=== PATIENT | male | born 1955 | race Caucasian/White ===

== ENCOUNTER 2017-10-25 18:35 | Emergency (ER) | payer OTHER ==
[2017-10-25 20:25] LABS: Absolute Monocytes 0.7 K/uL (0.1-1.3); Absolute Neutrophil 10.1 K/uL (1.8-8.0); Basophils % 0.6 % (0-1.3); Eosinophils % 1.7 % (0-4.4); Hematocrit 31.9 % (39.6-49.0); Lymphocytes % 14.9 % (15.3-44.8); MCV 90.7 fL (80-100); MPV 8.3 fL (7.6-11.3); Monocytes % 5.5 % (3.3-12.3); RBC Red Blood Cell Count 3.52 M/uL (4.33-5.43)
[2017-10-25] MEDS ORDERED: NA CHLORIDE 0.9% 1,000 ML ONE (20:32)
[2017-10-25] MEDS ORDERED: NA CHLORIDE 0.9% 500 ML ONE (20:32)
[2017-10-25 20:41] LABS: Potassium 4.5 mEq/L (3.6-5.0)
[2017-10-25 20:44] LABS: Albumin 3.7 g/dL (3.2-5.5); Bilirubin Total 0.3 mg/dL (0.3-1.2); Protein, Total 7.1 g/dL (6.0-8.3)
--- NOTE | 2017-10-25 22:24 | ER ---
Nurse's Notes [facility] Name: Mango Grey Age: 62 yrs Sex: Male : 1955 Arrival Date: 10/25/2017 Time: 18:36 Bed 17 Private MD: Gely Godfrey F Diagnosis: Hypercalcemia;Unspecified kidney failure;Elevated white blood cell count;Anemia, unspecified;Type 2 diabetes mellitus Presentation: 10/25 19:03 Presenting complaint: Patient states: Sent by wound healing for high calcium level. aj Transition of care: patient was not received from another setting of care. Onset of symptoms was October 25, 2017. Initial Sepsis Screen: Does the patient meet any 2 criteria? No. Patient's initial sepsis screen is negative. Does the patient have a suspected source of infection? No. Patient's initial sepsis screen is negative. Care prior to arrival: None. 19:03 Method Of Arrival: Wheelchair aj 19:03 Acuity: KATHIE 3 aj Triage Assessment: 19:05 General: Appears in no apparent distress. comfortable, Behavior is calm, cooperative, aj appropriate for age. Pain: Denies pain. Neuro: Level of Consciousness is awake, alert, obeys commands, Oriented to person, place, time, situation, Appropriate for age. Cardiovascular: No deficits noted. Respiratory: Airway is patent Respiratory effort is even, unlabored, Respiratory pattern is regular, symmetrical. Derm: Skin is intact, is healthy with good turgor, Skin is pink, warm \T\ dry. normal. Historical: - Allergies: 19:05 No Known Allergies; aj - Home Meds: 19:05 amlodipine 5 mg tab 1 tab once daily [Active]; atorvastatin 10 mg Oral tab 1 tab once aj daily [Active]; clonidine HCl 0.2 mg Oral tab 1 tab 2 times per day [Active]; lisinopril 20 mg Oral tab 1 tab once daily [Active]; metformin 500 mg Oral tab 1 tab 2 times per day [Active]; metoprolol tartrate 100 mg Oral tab 1 tab 2 times per day [Active]; spironolactone 25 mg Oral tab 1 tab once daily [Active]; Cipro 500 mg Oral tab 1 tab every 12 hours [Active]; - PMHx: 19:05 Diabetes - NIDDM; Hypertension; T10 paraplegic; aj - Immunization history:: Adult Immunizations up to date. - Social history:: Smoking status: Patient/guardian denies using tobacco. Screenin:12 Abuse screen: Denies threats or abuse. Denies injuries from another. Nutritional bp screening: No deficits noted. Tuberculosis screening: No symptoms or risk factors identified. Fall Risk None identified. Assessment: 19:09 General: Appears in no apparent distress. comfortable, Behavior is calm, cooperative, bp appropriate for age. Pain: Denies pain. Neuro: Level of Consciousness is awake, alert, obeys commands, Oriented to person, place, time, situation, Appropriate for age. Cardiovascular: No deficits noted. Respiratory: Airway is patent Respiratory effort is even, unlabored, Respiratory pattern is regular, symmetrical. GI: No signs and/or symptoms were reported involving the gastrointestinal system. : No signs and/or symptoms were reported regarding the genitourinary system. EENT: No deficits noted. Derm: No signs and/or symptoms reported regarding the dermatologic system. Musculoskeletal: AT BASELINE, T10 PARAPLEGIC x20YR. 19:11 Reassessment: SENT FROM WOUND HEALING FOR CA 12.9. bp 21:30 Reassessment: IVF INFUSING, AWAITING PROVIDER RE-EVAL. bp 23:30 Reassessment: PT D/C HOME IN W/C, DX WITH HYPERCALCEMIA AND KIDNEY FAILURE. bp Vital Signs: 19:05 BP 132 / 71; Pulse 87; Resp 20; Temp 98.4; Pulse Ox 96% on R/A; Weight 104.33 kg; Height 5 ft. 9 in. (175.26 cm); Pain 0/10; 19:14 BP 120 / 62; Pulse 92; Resp 18; Pulse Ox 99% on R/A; mt 20:03 BP 121 / 69; Pulse 72; Resp 18; Pulse Ox 97% on R/A; mt 20:49 BP 145 / 80; Pulse 66; Resp 18; Pulse Ox 99% on R/A; mt 21:29 BP 130 / 65; Pulse 69; Resp 16; Pulse Ox 99% on R/A; mt 22:21 BP 110 / 67; Pulse 63; Resp 16; Pulse Ox 97% on R/A; mt 19:05 Body Mass Index 33.96 (104.33 kg, 175.26 cm) ED Course: 18:36 Patient arrived in ED. as 18:36 Gely Godfrey MD is Private Physician. as 19:03 Triage completed. aj 19:05 Arm band placed on left wrist. Patient placed in an exam room. aj 19:08 Chidi Pan, RN is Primary Nurse. bp 19:12 Patient has correct armband on for positive identification. Bed in low position. Call bp light in reach. Side rails up X2. 19:17 Gallito Posadas MD is Attending Physician. inder 20:16 Inserted saline lock: 20 gauge in left antecubital area, using aseptic technique. Blood mt collected. 22:22 Gely Godfrey MD is Referral Physician. inder 22:23 Geoffrey Elizabeth MD is Referral Physician. inder 22:24 Bruce Segovia MD is Referral Physician. inder 23:31 No provider procedures requiring assistance completed. IV discontinued, intact, bp bleeding controlled, No redness/swelling at site. Pressure dressing applied. Administered Medications: 20:30 Drug: NS 0.9% 500 ml Route: IV; Rate: bolus; Site: left antecubital; bp 23:32 Follow up: IV Status: Completed infusion bp 20:30 Drug: NS 0.9% 1000 ml Route: IV; Rate: 125 ml/hr; Site: left antecubital; bp 23:32 Follow up: IV Status: Completed infusion bp Outcome: 22:23 Discharge ordered by . inder 23:31 Discharged to home via wheelchair, with family. bp 23:31 Condition: stable 23:31 Discharge instructions given to patient, Instructed on discharge instructions, follow up and referral plans. 23:32 Patient left the ED. bp Signatures: Nati Tony, DIAN RN Gallito Moser MD MD cha Martinez, Amelia as Thompson, Moriah pr Chidi Pan, DIAN RN bp Corrections: (The following items were deleted from the chart) 22:33 22:22 PTH,INTACT+C.LAB.BRZ drawn and sent. [facility]
--- NOTE | 2017-10-25 22:24 | EDPHYS ---
Physician Documentation [facility] Name: Mango Grey Age: 62 yrs Sex: Male : 1955 Arrival Date: 10/25/2017 Time: 18:36 Bed 17 Private MD: Gely Godfrey F ED Physician Gallito Posadas HPI: 10/25 20:04 This 62 yrs old Male presents to ER via Wheelchair with complaints of inder Abnormal Lab Results. 20:04 calcium high. Onset: The symptoms/episode began/occurred today. Severity of symptoms: inder At their worst the symptoms were none. The patient has not experienced similar symptoms in the past. Historical: - Allergies: 19:05 No Known Allergies; aj - Home Meds: 19:05 amlodipine 5 mg tab 1 tab once daily [Active]; atorvastatin 10 mg Oral tab 1 tab once aj daily [Active]; clonidine HCl 0.2 mg Oral tab 1 tab 2 times per day [Active]; lisinopril 20 mg Oral tab 1 tab once daily [Active]; metformin 500 mg Oral tab 1 tab 2 times per day [Active]; metoprolol tartrate 100 mg Oral tab 1 tab 2 times per day [Active]; spironolactone 25 mg Oral tab 1 tab once daily [Active]; Cipro 500 mg Oral tab 1 tab every 12 hours [Active]; - PMHx: 19:05 Diabetes - NIDDM; Hypertension; T10 paraplegic; aj - Immunization history:: Adult Immunizations up to date. - Social history:: Smoking status: Patient/guardian denies using tobacco. ROS: 20:04 Constitutional: Negative for fever, chills, and weight loss, Eyes: Negative for injury, inder pain, redness, and discharge, ENT: Negative for injury, pain, and discharge, Neck: Negative for injury, pain, and swelling, Cardiovascular: Negative for chest pain, palpitations, and edema, Respiratory: Negative for shortness of breath, cough, wheezing, and pleuritic chest pain, Abdomen/GI: Negative for abdominal pain, nausea, vomiting, diarrhea, and constipation, Back: Negative for injury and pain, : Negative for injury, bleeding, discharge, and swelling, MS/Extremity: Negative for injury and deformity, Skin: Negative for injury, rash, and discoloration, Neuro: Negative for headache, weakness, numbness, tingling, and seizure, Psych: Negative for depression, anxiety, suicide ideation, homicidal ideation, and hallucinations, Allergy/Immunology: Negative for hives, rash, and allergies, Endocrine: Negative for neck swelling, polydipsia, polyuria, polyphagia, and marked weight changes, Hematologic/Lymphatic: Negative for swollen nodes, abnormal bleeding, and unusual bruising. Exam: 20:04 Constitutional: This is a well developed, well nourished patient who is awake, alert, inder and in no acute distress. Head/Face: Normocephalic, atraumatic. Eyes: Pupils equal round and reactive to light, extra-ocular motions intact. Lids and lashes normal. Conjunctiva and sclera are non-icteric and not injected. Cornea within normal limits. Periorbital areas with no swelling, redness, or edema. ENT: Nares patent. No nasal discharge, no septal abnormalities noted. Tympanic membranes are normal and external auditory canals are clear. Oropharynx with no redness, swelling, or masses, exudates, or evidence of obstruction, uvula midline. Mucous membranes moist. Neck: Trachea midline, no thyromegaly or masses palpated, and no cervical lymphadenopathy. Supple, full range of motion without nuchal rigidity, or vertebral point tenderness. No Meningismus. Chest/axilla: Normal chest wall appearance and motion. Nontender with no deformity. No lesions are appreciated. Cardiovascular: Regular rate and rhythm with a normal S1 and S2. No gallops, murmurs, or rubs. Normal PMI, no JVD. No pulse deficits. Respiratory: Lungs have equal breath sounds bilaterally, clear to auscultation and percussion. No rales, rhonchi or wheezes noted. No increased work of breathing, no retractions or nasal flaring. Abdomen/GI: Soft, non-tender, with normal bowel sounds. No distension or tympany. No guarding or rebound. No evidence of tenderness throughout. Back: No spinal tenderness. No costovertebral tenderness. Full range of motion. Male : Normal genitalia with no discharge or lesions. Skin: Warm, dry with normal turgor. Normal color with no rashes, no lesions, and no evidence of cellulitis. MS/ Extremity: Pulses equal, no cyanosis. Neurovascular intact. Full, normal range of motion. Neuro: Awake and alert, GCS 15, oriented to person, place, time, and situation. Cranial nerves II-XII grossly intact. Motor strength 5/5 in all extremities. Sensory grossly intact. Cerebellar exam normal. Normal gait. Psych: Awake, alert, with orientation to person, place and time. Behavior, mood, and affect are within normal limits. Vital Signs: 19:05 BP 132 / 71; Pulse 87; Resp 20; Temp 98.4; Pulse Ox 96% on R/A; Weight 104.33 kg; aj Height 5 ft. 9 in. (175.26 cm); Pain 0/10; 19:14 BP 120 / 62; Pulse 92; Resp 18; Pulse Ox 99% on R/A; mt 20:03 BP 121 / 69; Pulse 72; Resp 18; Pulse Ox 97% on R/A; mt 20:49 BP 145 / 80; Pulse 66; Resp 18; Pulse Ox 99% on R/A; mt 21:29 BP 130 / 65; Pulse 69; Resp 16; Pulse Ox 99% on R/A; mt 22:21 BP 110 / 67; Pulse 63; Resp 16; Pulse Ox 97% on R/A; mt 19:05 Body Mass Index 33.96 (104.33 kg, 175.26 cm) aj MDM: 19:17 Patient medically screened. [facility] 20:05 Data reviewed: vital signs, nurses notes, lab test result(s), EKG. [facility] 10/25 20:03 Order name: CBC with Diff; Complete Time: 22:07 [facility] 10/25 20:03 Order name: Comprehensive Metabolic Panel; Complete Time: 22:07 [facility] 10/25 22:19 Order name: Pth,Intact bp 10/25 22:23 Order name: Urine Dipstick--Ancillary (enter results) em1 10/25 20:03 Order name: Urine Dipstick-Ancillary (obtain specimen); Complete Time: 22:22 [facility] Administered Medications: 20:30 Drug: NS 0.9% 500 ml Route: IV; Rate: bolus; Site: left antecubital; bp 23:32 Follow up: IV Status: Completed infusion bp 20:30 Drug: NS 0.9% 1000 ml Route: IV; Rate: 125 ml/hr; Site: left antecubital; bp 23:32 Follow up: IV Status: Completed infusion bp Disposition: 10/25/17 22:23 Discharged to Home. Impression: Hypercalcemia, Unspecified kidney failure, Elevated white blood cell count, Anemia, unspecified, Type 2 diabetes mellitus. - Condition is Stable. - Discharge Instructions: Type 2 Diabetes Mellitus, Adult, Hypercalcemia, Kidney Failure, [id number], Type 2 Diabetes Mellitus, Adult, [id number]. - Medication Reconciliation Form, Thank You Letter, Antibiotic Education, Prescription Opioid Use form. - Follow up: Gely Godfrey MD; When: 1 - 2 days; Reason: Recheck today's complaints, Continuance of care, Re-evaluation by your physician. Follow up: Geoffrey Elizabeth MD; When: 2 - 3 days; Reason: Recheck today's complaints, Re-evaluation by your physician. Follow up: Bruce Segovia MD; When: 2 - 3 days; Reason: Recheck today's complaints, Re-evaluation by your physician. - Problem is new. - Symptoms have improved. Signatures: Dispatcher [employer] Nati Wilcox, RN RN Gallito Moser MD MD cha Peltier, Brian, RN RN bp Corrections: (The following items were deleted from the chart) 22:33 22:20 PTH,INTACT+C.LAB.BRZ ordered. EDWI JORDANA
[2017-10-25 22:27] LABS: Urine Blood NEGATIVE (NEG); Urine Glucose NEGATIVE (NEG); Urine Protein NEGATIVE (NEG); Urine pH 6.5 (5.0-7.0)
[2017-10-25 23:53] VITALS: TEMP 98.4
[2017-10-25 23:59] VITALS: BP 110/67; O2SAT 97
== END 2017-10-25 23:32 | disposition home or self-care (01) ==
LOC: ER 18:35
DX: E83.52 Hypercalcemia (principal); E11.9 Type 2 diabetes mellitus without complications; D64.9 Anemia, unspecified; N19 Unspecified kidney failure; D72.829 Elevated white blood cell count, unspecified; I10 Essential (primary) hypertension; G82.20 Paraplegia, unspecified
CPT/HCPCS: 36415; 80053; 81003; 83970; 85025; 96360; 96361; 99284; J7030

== ENCOUNTER 2018-01-12 12:06 | Inpatient (IN) | payer OTHER ==
[2018-01-12 14:19] LABS: Absolute Lymphocytes (CBC) 1.3 K/uL (0.7-4.9); Absolute Monocytes 0.7 K/uL (0.1-1.3); Absolute Neutrophil 9.2 K/uL (1.8-8.0); Basophils % 0.6 % (0-1.3); Eosinophils % 2.3 % (0-4.4); Hematocrit 37.3 % (39.6-49.0); Lymphocytes % 11.3 % (15.3-44.8); MCH 29.9 pg (27.0-35.0); MPV 8.4 fL (7.6-11.3); Monocytes % 6.2 % (3.3-12.3); RBC Red Blood Cell Count 4.19 M/uL (4.33-5.43)
[2018-01-12 14:39] LABS: Potassium 3.9 mmol/L (3.5-5.1)
--- NOTE | 2018-01-12 14:50 | RAD REPORT ---
EXAM DESCRIPTION: RAD - Foot Right 3 View - 01/12/2018 2:33 pm CLINICAL HISTORY: Pain, swelling, osteomyelitis COMPARISON: Foot Right Wo Cont dated 01/05/2018; Foot Right Wo Cont dated 07/06/2017 FINDINGS: Destructive changes are present involving the fifth metatarsal head, compatible with osteo myelitis. Moderate subluxation at the fifth MTP joint. Mild adjacent soft tissue swelling is seen. Mo derate soft tissue swelling is seen along the dorsum of the mid and forefoot. IMPRESSION: Osteomyelitis is identified involving the fifth metatarsal head with moderate subluxatio n at the fifth MTP joint.
--- NOTE | 2018-01-12 15:07 | EDPHYS ---
Physician Documentation [facility] Name: Mango Grey Age: 62 yrs Sex: Male : 1955 Arrival Date: 01/12/2018 Time: 12:07 Bed 24 Private MD: Gely Godfrey F ED Physician Yannick Mcgowan HPI: 01/12 13:05 This 62 yrs old Male presents to ER via Wheelchair with complaints of Wound kav Infection. 14:15 Onset: The symptoms/episode began/occurred 6 week(s) ago. Associated signs and kav symptoms: Pertinent positives: Pertinent negatives: fever. 14:16 The patient presents with chronic right foot ulcer. The complaints affect the right kav foot. Context: the patient can partially bear weight, wheelchair. Modifying factors: The symptoms are alleviated by outpatient antibiotic therapy the symptoms are aggravated by movement. Associated signs and symptoms: Pertinent positives: of the lateral side of right foot, erythema, Pertinent negatives: warmth. Severity of symptoms: At their worst the symptoms were mild, last night. The patient has been recently seen by a physician: Dr. Ruiz. 14:23 PCP/Dr. Godfrey. kav 14:29 mri done on 01/05/[address] ruiz: dx: osteomyelitis. kav 15:47 The patient reports that he had a 6 week round of outpatient antibiotic therapy that kav concluded approximately 4-5 weeks ago. Historical: - Allergies: 12:16 No Known Allergies; sg - Home Meds: 12:41 amlodipine 5 mg tab 1 tab once daily [Active]; atorvastatin 10 mg Oral tab 1 tab once tw2 daily [Active]; Cipro 500 mg Oral tab 1 tab every 12 hours [Active]; clonidine HCl 0.2 mg Oral tab 1 tab 2 times per day [Active]; lisinopril 20 mg Oral tab 1 tab once daily [Active]; metoprolol tartrate 100 mg Oral tab 1 tab 2 times per day [Active]; spironolactone 25 mg Oral tab 1 tab once daily [Active]; glimepiride 1 mg Oral tab 1 tab once daily [Active]; - PMHx: 12:16 Diabetes - NIDDM; Hypertension; T10 paraplegic; sg - Immunization history:: Adult Immunizations up to date. - Social history:: Smoking status: Patient/guardian denies using tobacco. - Ebola Screening: : Patient negative for fever greater than or equal to 101.5 degrees Fahrenheit, and additional compatible Ebola Virus Disease symptoms Patient denies exposure to infectious person Patient denies travel to an Ebola-affected area in the 21 days before illness onset No symptoms or risks identified at this time. - Family history:: not pertinent. - Hospitalizations: : No recent hospitalization is reported. - History obtained from: Old record. ROS: 14:25 Constitutional: Negative for fever, chills, and weight loss, Eyes: Negative for injury, kav pain, redness, and discharge, ENT: Negative for injury, pain, and discharge, Neck: Negative for injury, pain, and swelling, Cardiovascular: Negative for chest pain, palpitations, and edema, Respiratory: Negative for shortness of breath, cough, wheezing, and pleuritic chest pain, Abdomen/GI: Negative for abdominal pain, nausea, vomiting, diarrhea, and constipation, Back: Negative for injury and pain, : Negative for injury, bleeding, discharge, and swelling, Skin: Negative for injury, rash, and discoloration, Neuro: Negative for headache, weakness, numbness, tingling, and seizure, Psych: Negative for depression, anxiety, suicide ideation, homicidal ideation, and hallucinations, Allergy/Immunology: Negative for hives, rash, and allergies, Endocrine: Negative for neck swelling, polydipsia, polyuria, polyphagia, and marked weight changes, Hematologic/Lymphatic: Negative for swollen nodes, abnormal bleeding, and unusual bruising. 14:25 MS/extremity: Positive for erythema, chronic open non-healing ulcer with dx: osteomyelitis by mri done on 01/05/[address] ruiz. Exam: 14:25 Constitutional: This is a well developed, well nourished patient who is awake, alert, kav and in no acute distress. Head/Face: Normocephalic, atraumatic. Eyes: Pupils equal round and reactive to light, extra-ocular motions intact. Lids and lashes normal. Conjunctiva and sclera are non-icteric and not injected. Cornea within normal limits. Periorbital areas with no swelling, redness, or edema. ENT: Nares patent. No nasal discharge, no septal abnormalities noted. Tympanic membranes are normal and external auditory canals are clear. Oropharynx with no redness, swelling, or masses, exudates, or evidence of obstruction, uvula midline. Mucous membranes moist. Neck: Trachea midline, no thyromegaly or masses palpated, and no cervical lymphadenopathy. Supple, full range of motion without nuchal rigidity, or vertebral point tenderness. No Meningismus. Chest/axilla: Normal chest wall appearance and motion. Nontender with no deformity. No lesions are appreciated. Cardiovascular: Regular rate and rhythm with a normal S1 and S2. No gallops, murmurs, or rubs. Normal PMI, no JVD. No pulse deficits. Respiratory: Lungs have equal breath sounds bilaterally, clear to auscultation and percussion. No rales, rhonchi or wheezes noted. No increased work of breathing, no retractions or nasal flaring. Abdomen/GI: Soft, non-tender, with normal bowel sounds. No distension or tympany. No guarding or rebound. No evidence of tenderness throughout. Back: No spinal tenderness. No costovertebral tenderness. Full range of motion. MS/ Extremity: Pulses equal, no cyanosis. Neurovascular intact. Full, normal range of motion. Neuro: Awake and alert, GCS 15, oriented to person, place, time, and situation. Cranial nerves II-XII grossly intact. Motor strength 5/5 in all extremities. Sensory grossly intact. Cerebellar exam normal. Normal gait. Psych: Awake, alert, with orientation to person, place and time. Behavior, mood, and affect are within normal limits. 14:25 Skin: cellulitis, that is mild, irregular, on the lateral side of right foot, chronic non-healing diabetic foot ulcer. Vital Signs: 12:19 BP 147 / 85; Pulse 79; Resp 17; Temp 98.6; Pulse Ox 98% on R/A; Weight 113.4 kg (R); sg Pain 0/10; 13:25 BP 143 / 68; Pulse 72; Resp 17; Pulse Ox 97% on R/A; tw2 14:30 BP 139 / 82; Pulse 74; Resp 17; Pulse Ox 95% on R/A; tw2 15:10 BP 119 / 83; Pulse 74; Resp 17; Pulse Ox 97% on R/A; tw2 15:54 BP 136 / 90; Pulse 75; Resp 17; Pulse Ox 98% on R/A; tw2 16:09 BP 129 / 72; Pulse 66; Resp 17; Pulse Ox 98% on R/A; mt 16:58 BP 120 / 78; Pulse 67; Resp 17; Pulse Ox 99% on R/A; tw2 MDM: 13:51 Medical screening is not applicable. ka 14:25 Data reviewed: vital signs, nurses notes, lab test result(s), radiologic studies, plain kav films. 14:29 Physician consultation: Rc Ruiz MD was called at 13:38, regarding admission, kav consult, patient's condition. 14:29 Physician consultation: Charanjit Erickson MD was called at 13:40, was contacted at ka 13:45, regarding patient's condition, "..contact dr. ruiz". 14:29 Physician consultation: Gely Godfrey MD was called at 14:23, regarding admission, kav patient's condition. 14:29 Physician consultation: Rc Ruiz MD was contacted at 14:36, would like kav consultation with Dr. Dr. Segovia, would like admission per Dr. Gely Godfrey MD. 14:29 Physician consultation: Gely Godfrey MD was contacted at 14:37, regarding admission, kav to the medical/surgical unit. admit to inpatient. 14:39 Physician consultation: Bruce Segovia MD was called at 14:39, regarding admission, kav consult, patient's condition. 01/12 13:46 Order name: Basic Metabolic Panel; Complete Time: 15:03 [facility] 01/12 13:46 Order name: CBC with Diff; Complete Time: 15:03 [facility] 01/12 13:46 Order name: Creatinine for Radiology; Complete Time: 15:03 [facility] 01/12 13:46 Order name: Urine Microscopic Only; Complete Time: 15:43 [facility] 01/12 13:50 Order name: Foot Right 3 View XRAY; Complete Time: 15:03 [facility] 01/12 15:14 Order name: Urine Dipstick--Ancillary (enter results); Complete Time: 15:43 01/12 13:46 Order name: IV Saline Lock; Complete Time: 15:08 [facility] 01/12 13:46 Order name: Labs collected and sent; Complete Time: 14:13 [facility] 01/12 13:46 Order name: Urine Dipstick-Ancillary (obtain specimen); Complete Time: 15:08 [facility] 01/12 14:50 Order name: Alexis; Complete Time: 14:50 tw2 01/12 15:18 Order name: CONS Physician Consult EDMS Administered Medications: No medications were administered Disposition: 18:22 Co-signature as Attending Physician, Yannick Mcgowan MD I agree with the assessment and kdr plan of care. Disposition: 01/12/18 15:07 Hospitalization ordered by Gely Godfrey for Inpatient Admission. Preliminary diagnosis are Chronic osteomyelitis with draining sinus, right ankle and foot, Personal history of diabetic foot ulcer, Diabetes mellitus due to underlying condition with foot ulcer, Cellulitis Right Foot. - Bed requested for Telemetry/MedSurg (Inpatient). - Status is Inpatient Admission. tw2 - Condition is Stable. - Problem is chronic. - Symptoms are unchanged. UTI on Admission? No Signatures: Dispatcher [employer] EDMS Charanjit Hale, RN RN Yannick Mcgowan MD MD [facility] Henna Elizabeth, FINISHING AREA OPERATOR FINISHING AREA OPERATOR Nataliia Mcintosh RN RN tw2 Kathy Naylor Corrections: (The following items were deleted from the chart) 15:08 15:07 Hospitalization Ordered by Gely Godfrey MD for Inpatient Admission. Preliminary [facility] diagnosis is Chronic osteomyelitis with draining sinus, right ankle and foot; Personal history of diabetic foot ulcer; Diabetes mellitus due to underlying condition with foot ulcer. Bed requested for Telemetry/MedSurg (Inpatient). Status is Inpatient Admission. Condition is Stable. Problem is chronic. Symptoms are unchanged. UTI on Admission? No. kav 15:08 15:08 01/12/2018 15:07 Hospitalization Ordered by Gely Godfrey MD for Inpatient [facility] Admission. Preliminary diagnosis is Chronic osteomyelitis with draining sinus, right ankle and foot; Personal history of diabetic foot ulcer; Diabetes mellitus due to underlying condition with foot ulcer; Cellulitis Right Foot. Bed requested for Telemetry/MedSurg (Inpatient). Status is Inpatient Admission. Condition is Stable. Problem is chronic. Symptoms are unchanged. UTI on Admission? No. quinv 15:48 14:16 The patient has experienced a previous episode, approximately 6 weeks ago, and ka the symptoms today are exactly the same, 6 weeks of iv abx therapy prior to this ED visit, gilberto 15:49 14:16 pt reports that he has just finished 6 weeks of outpatient iv abx therapy and kav wound care at this hospital/Dr. Mcwilliams and Dr. Ruiz. kav 16:25 15:08 01/12/2018 15:07 Hospitalization Ordered by Gely Godfrey MD for Inpatient eb Admission. Preliminary diagnosis is Chronic osteomyelitis with draining sinus, right ankle and foot; Personal history of diabetic foot ulcer; Diabetes mellitus due to underlying condition with foot ulcer; Cellulitis Right Foot. Bed requested for Telemetry/MedSurg (Inpatient). Status is Inpatient Admission. Condition is Stable. Problem is chronic. Symptoms are unchanged. UTI on Admission? No. kav 17:36 16:25 01/12/2018 15:07 Hospitalization Ordered by Gely Godfrey MD for Inpatient tw2 Admission. Preliminary diagnosis is Chronic osteomyelitis with draining sinus, right ankle and foot; Personal history of diabetic foot ulcer; Diabetes mellitus due to underlying condition with foot ulcer; Cellulitis Right Foot. Bed requested for Telemetry/MedSurg (Inpatient). Status is Inpatient Admission. Condition is Stable. Problem is chronic. Symptoms are unchanged. UTI on Admission? No. eb
--- NOTE | 2018-01-12 15:07 | ER ---
Nurse's Notes [facility] Name: Mango Grey Age: 62 yrs Sex: Male : 1955 Arrival Date: 01/12/2018 Time: 12:07 Bed 24 Private MD: Gely Godfrey F Diagnosis: Chronic osteomyelitis with draining sinus, right ankle and foot;Personal history of diabetic foot ulcer;Diabetes mellitus due to underlying condition with foot ulcer;Cellulitis Right Foot Presentation: 01/12 12:16 Acuity: KATHIE 3 sg 12:18 Presenting complaint: Patient states: I have a wound that has been treating sg down at the wound center, but the MRI done recently has shown that the infection is in the bone, this morning I changed the bandage this morning, i use prism and agiset, but the dressing had some drainage and the foot is now red. Transition of care: patient was not received from another setting of care. Onset of symptoms was January 12, 2018. Risk Assessment: Do you want to hurt yourself or someone else? Patient reports no desire to harm self or others. Initial Sepsis Screen: Does the patient meet any 2 criteria? No. Patient's initial sepsis screen is negative. Does the patient have a suspected source of infection? Yes: Bone or joint infection. Care prior to arrival: None. 12:18 Method Of Arrival: Wheelchair sg Historical: - Allergies: 12:16 No Known Allergies; sg - Home Meds: 12:41 amlodipine 5 mg tab 1 tab once daily [Active]; atorvastatin 10 mg Oral tab 1 tab once tw2 daily [Active]; Cipro 500 mg Oral tab 1 tab every 12 hours [Active]; clonidine HCl 0.2 mg Oral tab 1 tab 2 times per day [Active]; lisinopril 20 mg Oral tab 1 tab once daily [Active]; metoprolol tartrate 100 mg Oral tab 1 tab 2 times per day [Active]; spironolactone 25 mg Oral tab 1 tab once daily [Active]; glimepiride 1 mg Oral tab 1 tab once daily [Active]; - PMHx: 12:16 Diabetes - NIDDM; Hypertension; T10 paraplegic; sg - Immunization history:: Adult Immunizations up to date. - Social history:: Smoking status: Patient/guardian denies using tobacco. - Ebola Screening: : Patient negative for fever greater than or equal to 101.5 degrees Fahrenheit, and additional compatible Ebola Virus Disease symptoms Patient denies exposure to infectious person Patient denies travel to an Ebola-affected area in the 21 days before illness onset No symptoms or risks identified at this time. - Family history:: not pertinent. - Hospitalizations: : No recent hospitalization is reported. - History obtained from: Old record. Screenin:33 Abuse screen: Denies threats or abuse. Nutritional screening: No deficits noted. tw2 Tuberculosis screening: No symptoms or risk factors identified. Fall Risk None identified. Assessment: 12:42 General: Appears in no apparent distress. Behavior is calm, cooperative, appropriate tw2 for age. Pain: Denies pain. Neuro: Level of Consciousness is awake, alert, obeys commands, Oriented to person, place, time, situation. Cardiovascular: Denies chest pain, shortness of breath, Heart tones S1 S2 Patient's skin is warm and dry. Respiratory: Airway is patent Respiratory effort is even, unlabored, Respiratory pattern is regular, symmetrical, Breath sounds are clear bilaterally. GI: No signs and/or symptoms were reported involving the gastrointestinal system. Abdomen is round non-distended, Bowel sounds present X 4 quads. : No signs and/or symptoms were reported regarding the genitourinary system. Derm: Reports increased redness to right dorsum of foot, he states he has been battling this bone infection for a while, mri was done last Monday but the redness is what concerned him. Musculoskeletal: pt is in personal w/c at this time, prefers to stay in w/c. 13:27 Reassessment: Patient appears in no apparent distress at this time. No changes from tw2 previously documented assessment. Patient and/or family updated on plan of care and expected duration. Pain level reassessed. Patient is alert, oriented x 3, equal unlabored respirations, skin warm/dry/pink. 14:30 Reassessment: Patient appears in no apparent distress at this time. No changes from tw2 previously documented assessment. Patient and/or family updated on plan of care and expected duration. Pain level reassessed. Patient is alert, oriented x 3, equal unlabored respirations, skin warm/dry/pink. 15:12 Reassessment: Patient appears in no apparent distress at this time. No changes from tw2 previously documented assessment. Patient and/or family updated on plan of care and expected duration. Pain level reassessed. Patient is alert, oriented x 3, equal unlabored respirations, skin warm/dry/pink. 15:55 Reassessment: Patient appears in no apparent distress at this time. No changes from tw2 previously documented assessment. Patient and/or family updated on plan of care and expected duration. Pain level reassessed. Patient is alert, oriented x 3, equal unlabored respirations, skin warm/dry/pink. 17:00 Reassessment: Patient appears in no apparent distress at this time. No changes from tw2 previously documented assessment. Patient and/or family updated on plan of care and expected duration. Pain level reassessed. Patient is alert, oriented x 3, equal unlabored respirations, skin warm/dry/pink. Vital Signs: 12:19 BP 147 / 85; Pulse 79; Resp 17; Temp 98.6; Pulse Ox 98% on R/A; Weight 113.4 kg (R); sg Pain 0/10; 13:25 BP 143 / 68; Pulse 72; Resp 17; Pulse Ox 97% on R/A; tw2 14:30 BP 139 / 82; Pulse 74; Resp 17; Pulse Ox 95% on R/A; tw2 15:10 BP 119 / 83; Pulse 74; Resp 17; Pulse Ox 97% on R/A; tw2 15:54 BP 136 / 90; Pulse 75; Resp 17; Pulse Ox 98% on R/A; tw2 16:09 BP 129 / 72; Pulse 66; Resp 17; Pulse Ox 98% on R/A; mt 16:58 BP 120 / 78; Pulse 67; Resp 17; Pulse Ox 99% on R/A; tw2 ED Course: 12:07 Patient arrived in ED. sg 12:15 Gely Godfrey MD is Private Physician. sg 12:16 Triage completed. sg 12:16 Arm band placed on. sg 12:33 Nataliia Joyce RN is Primary Nurse. tw2 12:35 Call light in reach. Pulse ox on. NIBP on. tw2 13:05 Henna Elizabeth FNP is PHCP. kav 13:05 Yannick Mcgowan MD is Attending Physician. kav 14:00 Missed attempt(s): 22 gauge in right antecubital area. Bleeding controlled, band aid tw2 applied, catheter tip intact. Inserted saline lock: 22 gauge in left antecubital area, using aseptic technique. Blood collected. 14:33 Foot Right 3 View XRAY In Process Unspecified. EDMS 15:05 Gely Godfrey MD is Hospitalizing Provider. kav 15:08 No provider procedures requiring assistance completed. Espinoza cath inserted, using tw2 sterile technique, 16 Fr., by oh, balloon inflated, to gravity drainage, urine specimen collected. Patient tolerated well. 16:30 Awaiting: attempted to give report Indura, folder machine said to give him 10 or 15 minutes. tw2 17:00 Patient admitted, IV remains in place. tw2 Administered Medications: No medications were administered Outcome: 15:07 Decision to Hospitalize by Provider. kav 16:59 Admitted to Med/surg accompanied by tech, via stretcher, room 411, Report called to andres coreas rn 16:59 Condition: stable 16:59 Instructed on the need for admit. 17:36 Patient left the ED. tw2 Signatures: Dispatcher [employer] EDMS Charanjit Hale, RN RN Henna Montoya, GARNETT MACHINE OPERATOR GARNETT MACHINE OPERATOR Nataliia Mcintosh RN RN [facility] Vanessa Cox ma
[2018-01-12 15:29] LABS: Urine Blood NEGATIVE (NEG); Urine Glucose NEGATIVE (NEG); Urine Protein TRACE (NEG); Urine pH 5.5 (5.0-7.0)
[2018-01-12 15:35] LABS: Urine Bacteria <20 /HPF (NONE SEEN); Urine Culture Reflex Order REFLEXED; Urine RBC <5 /HPF (NONE SEEN)
[2018-01-12 15:36] LABS: Urine Mucus 1+ /HPF (NONE SEEN)
[2018-01-12 19:40] VITALS: BMI 38.4
[2018-01-13] MEDS: LISINOPRIL 20 MG TAB PO SCH (11:40)
[2018-01-13] MEDS: AMLODIPINE 5 MG TAB PO SCH (11:40)
[2018-01-13] MEDS: METOPROLOL TAR 50 MG TAB PO SCH ×2 (11:41→20:31)
[2018-01-13] MEDS: cloNIDine HCl 0.1 MG TAB PO SCH ×2 (11:41→20:29)
[2018-01-13] MEDS: CEFTRIAXONE/SWI 1gm 1 GM/10 ML SYR IV SCH ×2 (12:00→20:32)
[2018-01-13] MEDS ORDERED: BISACODYL E.C. 5 MG TAB PO PRN (14:44)
[2018-01-13] MEDS: ENOXAPARIN 30 MG/0.3 ML SQ SCH (16:14)
[2018-01-13] MEDS ORDERED: D50W 25 GM/50 ML SYRINGE IV PRN (19:54)
[2018-01-13] MEDS ORDERED: GLUCAGON 1 MG/VIAL IM PRN (19:54)
[2018-01-13] MEDS: ATORVASTATIN 10 MG TAB PO SCH (20:30)
[2018-01-13] MEDS: JUVEN PACKET PO SCH (20:31)
[2018-01-13] MEDS: INSULIN -REGULAR HUMAN 50 UNIT/0.5 ML ML SQ SCH (21:00)
[2018-01-13] MEDS ORDERED: METOPROLOL TAR 50 MG TAB PO SCH (21:00)
[2018-01-13] MEDS ORDERED: CEFTRIAXONE 1 GM/NS 50 ML 1 GM/50 ML BAG IV SCH (21:00)
[2018-01-13] MEDS ORDERED: CLONIDINE HCL 0.2 MG PO SCH (21:00)
--- NOTE | 2018-01-14 04:46 | CON ---
Date of Consultation: 01/13/2018 Reason For Service: Osteomyelitis of the right foot. History Of Present Illness: This is the case of a 62-year-old patient, comes to us with osteomyeliti s and cellulitis of the right foot region. The [facility] over the foot and most of them are healed. One of them has persisted to be open and recently an MRI was done, found to have osteomyelitis. Antibiotics treatment was being planned and t hen that day he came with redness over the foot. The patient was admitted to the ER. Surgical consu lt was obtained. He denies any trauma, dysuria, hematemesis, hematochezia, or melena. He denies any recent travelling out of the country. He denies any family member sick at home. Past Medical History: Shows [id number] diabetes, hypertension, paraplegic. Allergies: NONE. Medications: Reviewed. Social History: He does not smoke. He does not drink alcohol. Family History: Noncontributory. Review of Systems: Constitutional: Denies any fevers or chills. Respiratory: Denies any shortness of breath. Gastrointestinal: Denies any nausea, vomiting, hematochezia, or melena. Genitourinary: Denies any dysuria, hematuria. Neuro: He has paraplegia. Integumentary: As per H and P. Physical Examination: General: The patient is awake and alert. No distress. HEENT: Pupils are anicteric. Neck: Supple. Chest: Clear. Abdomen: Soft and depressible. Rectal: Deferred. Extremities: Over the right foot region, the patient has about a 1 x 1 cm area with cellulitis. The area is well known in the past to be smaller but is persistent right now. It is not changing in siz e. There is no fluctuance or crepitus. The redness looks better than before as per the patient. Do rsalis pedis pulses still present. Imaging: MRI of the right foot done January 05, 2018 shows cellulitis involving the fifth metatarsal hea d and base of the fifth proximal phalanx. Assessment: This is a 62-year-old patient with an osteomyelitis and cellulitis of the right foot reg ion. The patient at this moment shows no fluctuance, no crepitus. Antibiotic was given by the [facility] doctor. The patient may require PICC line and long-term antibiotics. Consider LTAC. From the pickering rgical standpoint, we are going to stop the Padmini, and we are going to go back to Santyl wet-to-dry and off-loading and nutrition. BG/SABRINA Voice ID: [id number] Report ID: [id number]
[2018-01-14 06:32] LABS: Absolute Lymphocytes (CBC) 1.7 K/uL (0.7-4.9); Absolute Monocytes 0.7 K/uL (0.1-1.3); Basophils % 0.8 % (0-1.3); Hematocrit 35.5 % (39.6-49.0); MCH 31.2 pg (27.0-35.0); MCV 88.7 fL (80-100); MPV 8.7 fL (7.6-11.3); Monocytes % 6.2 % (3.3-12.3); RBC Red Blood Cell Count 4.01 M/uL (4.33-5.43)
[2018-01-14 06:34] LABS: Potassium 4.3 mmol/L (3.5-5.1)
[2018-01-14] MEDS: INSULIN -REGULAR HUMAN 50 UNIT/0.5 ML ML SQ SCH ×4 (07:30→21:00)
[2018-01-14] MEDS ORDERED: LISINOPRIL 20 MG TAB PO SCH (09:00)
[2018-01-14] MEDS ORDERED: HOME MED 1 EA UNK (Ascorbic Acid [Vitamin C] 1 TAB) PO SCH (09:00)
[2018-01-14] MEDS ORDERED: AMLODIPINE 5 MG TAB PO SCH (09:00)
[2018-01-14] MEDS: JUVEN PACKET PO SCH ×2 (09:28→21:09)
[2018-01-14] MEDS: ASCORBIC ACID 500 MG TABLET PO SCH (09:29)
[2018-01-14] MEDS: METOPROLOL TAR 50 MG TAB PO SCH ×2 (09:29→21:08)
[2018-01-14] MEDS: CYANOCOBALAMIN 1,000 MCG TAB PO SCH (09:29)
[2018-01-14] MEDS: LISINOPRIL 20 MG TAB PO SCH (09:30)
[2018-01-14] MEDS: AMLODIPINE 5 MG TAB PO SCH (09:30)
[2018-01-14] MEDS: cloNIDine HCl 0.1 MG TAB PO SCH ×2 (09:31→21:07)
[2018-01-14] MEDS: PYRIDOXINE (VIT B6) 50 MG TAB PO SCH (09:34)
[2018-01-14] MEDS: CEFTRIAXONE/SWI 1gm 1 GM/10 ML SYR IV SCH ×2 (09:35→21:06)
[2018-01-14] MEDS: COLLAGENASE 30 GM OINTMENT TOP SCH (10:47)
[2018-01-14] MEDS: ENOXAPARIN 30 MG/0.3 ML SQ SCH (17:01)
--- NOTE | 2018-01-14 17:22 | PN ---
Subjective: The patient is doing well. Has no complaints. Objective: Vital Signs: Blood pressure 155/80, pulse 79, temperature 97.9. Heart: Regular rate and rhythm. Chest: Clear to auscultation. Abdomen: Soft, benign. Neurologic: Alert, oriented, and intact. Extremities: . Edema is much less around the right foot ulcer. Laboratory Data: White count 10.8, hemoglobin 12.5, hematocrit 35.5, platelets 320. Chemistry noted . GFR 75. Blood sugar, fingersticks noted. Assessment And Plan: Right foot cellulitis and osteomyelitis. We will continue ceftriaxone. Apprec iate Dr. Greer's input. Pending Dr. Segovia, Infectious Disease recommendation. We will ask [facility] to arrange for home health, IV antibiotics, and sedative and also we will continue current treatment. Look orders for details. MFS/MODL Voice ID: [id number] Report ID: [id number]
[2018-01-14] MEDS: ATORVASTATIN 10 MG TAB PO SCH (21:08)
[2018-01-15] MEDS: INSULIN -REGULAR HUMAN 50 UNIT/0.5 ML ML SQ SCH ×4 (07:30→20:52)
--- NOTE | 2018-01-15 08:14 | RAD REPORT ---
EXAM DESCRIPTION: RAD - Chest Single View - 01/14/2018 11:50 pm CLINICAL HISTORY: Device placement PICC line placement COMPARISON: none FINDINGS: A PICC line has been inserted with its tip in the superior vena cava. The lungs appear clear of acute infiltrate. The heart is normal size. Old rib fractures are seen. [place] rods traverse the spine IMPRESSION: PICC line with its tip in the proximal superior vena cava
--- NOTE | 2018-01-15 08:59 | HP ---
Date of Admission: 01/12/2018 History: A 62-year-old male who is paraplegic and diabetic has been following up with Dr. Percy umaña or right foot plantar surface ulcer and infection. He was also referred to [facility] Koch for that. The patient, however, was not taking any antibiotics. When he noticed yesterday estela t he had redness around the foot ulcer and started to spread to his foot on the dorsal surface, he ca me to emergency room. He also has had recent MRI of his foot that showed osteomyelitis, and with pre sentation to the emergency room with cellulitis and osteomyelitis in that area, he was admitted. The patient denies any fever. Denies any chills. He said he may have felt febrile, but not really took his temperature. He voiced no other complaints. Review of Systems: Cardiovascular: No complaint. Respiratory: No complaint. Skeletomuscular: As above. Genitourinary: No complaint. Gastrointestinal: Chronic constipation after paraplegia. No change. Neurological: Paraplegic. No change. Past Medical History: 1.Patient is paraplegic as mentioned above. 2.Hypertension. 3.Type 2 diabetes. 4.Hyperlipidemia. 5.As mentioned above about his right foot, it is chronic. Social History: No smoking, alcohol, or drug abuse history. Family History: Noncontributing. Medications: Include glimepiride mg p.o. daily, amlodipine 5 mg p.o. daily, atorvastatin 10 mg p.o. daily, clonidine 0.2 mg p.o. b.i.d., lisinopril 20 mg p.o. daily, metoprolol 50 mg p.o. da cori, vitamin B6, vitamin C, and vitamin B12. Allergies: NO KNOWN DRUG ALLERGIES. Physical Examination: Vital Signs: Blood pressure 175/95, pulse 107, temperature 98.3. Heart: Regular rate and rhythm. Chest: Clear to auscultation. Abdomen: Soft, nontender. Bowel sounds are active. Extremities: Right foot plantar surface showed about 0.7 x 0.7 cm rounded ulcer extending deep along with erythema around, spreading. Neurological: Paraplegic as mentioned above. Imaging Studies: Foot MRI done on 01/05/2018 of the right foot showed osteomyelitis involving the fi fth metatarsal head and fifth proximal phalanx. No abscess. Right foot x-ray done on adm ission showed osteomyelitis of the previous sites as mentioned. Laboratory Data: White cell count 11.6, hemoglobin 12.5, hematocrit 37.3, platelets 409, neutrophils 79.6. Chemistry: GFR 75, blood sugar 179. The rest of his chemistry noted. Assessment And Plan: Right foot osteomyelitis along with spreading cellulitis. Rocephin IV antibiot ics have been started. We will continue the patient's home medications and monitor his blood sugar a nd put him on a sliding scale and we have consulted Infectious Disease, Dr. Segovia, who knows the pat ient. We will continue the rest of his home medicines for his chronic medical illnesses. Look order s for details. MITUL/MODL Voice ID: [id number]
[2018-01-15] MEDS: ASCORBIC ACID 500 MG TABLET PO SCH (09:47)
[2018-01-15] MEDS: CYANOCOBALAMIN 1,000 MCG TAB PO SCH (09:47)
[2018-01-15] MEDS: CEFTRIAXONE/SWI 1gm 1 GM/10 ML SYR IV SCH ×2 (09:49→20:49)
[2018-01-15] MEDS: cloNIDine HCl 0.1 MG TAB PO SCH ×2 (09:49→20:50)
[2018-01-15] MEDS: AMLODIPINE 5 MG TAB PO SCH (09:49)
[2018-01-15] MEDS: METOPROLOL TAR 50 MG TAB PO SCH ×2 (09:50→20:51)
[2018-01-15] MEDS: LISINOPRIL 20 MG TAB PO SCH (09:50)
[2018-01-15] MEDS: JUVEN PACKET PO SCH ×2 (09:52→20:49)
[2018-01-15] MEDS: PYRIDOXINE (VIT B6) 50 MG TAB PO SCH (11:04)
[2018-01-15] MEDS: COLLAGENASE 30 GM OINTMENT TOP SCH (11:06)
--- NOTE | 2018-01-15 11:45 | P.PN ---
Subjective Date of Service: 01/15/18 Chief Complaint: osteomyelitits Subjective: Tolerating diet, Improving Review of Systems General: Unremarkable Eyes: Unremarkable ENT: Unremarkable Respiratory: Unremarkable Gastrointestinal: Unremarkable Musculoskeletal: As per HPI Integumentary: As per HPI Neurological: As per HPI Physical Examination - Vital Signs Temperature: 97.4 F Blood Pressure: 144/70 Pulse: 70 Respirations: 18 Pulse Ox (%): 96 - Physical Exam General: Alert, In no apparent distress, Oriented x3, Cooperative HEENT: PERRLA, EOMI Neck: Supple Cardiovascular: No edema Gastrointestinal: Soft and benign Integumentary: No warmth, No cyanosis, Erythema (less), Diabetic ulcer (clean , no necrotic tissue, ligaments exposed) - Studies Microbiology Data (last 24 hrs): 01/12/18 14:50 Clean Catch Urine [place] Count - Final >100,000 CFU/ML. 01/12/18 14:50 Clean Catch Urine - Final Assessment And Plan - Plan group home abx per ID wet to dry to foot off loading consider LTAC f/u at wound healing center
--- NOTE | 2018-01-15 16:55 | PN ---
Subjective: The patient is feeling well. Has no new complaint. Objective: Mame; signs: Blood pressure 120/70, pulse 74, and temperature 97.1. Heart: Regular rate and rhythm. Chest: Clear to auscultation. Abdomen: Soft, benign. Neurologic: Alert, oriented, paraplegic. No change. Extremities: The right foot showed minimal erythema around sole. Plantar ulcer Assessment And Plan: Osteomyelitis, right foot with cellulitis. Still pending on infectious disease , Dr. Segovia's evaluation and recommendation. Meanwhile, continue current antibiotic. PICC line has been placed in anticipation of long-term antibiotic. Also, vp digital marketing social media and crm have been consulted to a rrange for discharge planning for IV antibiotic treatment. Meanwhile, continue current care. His bl ood sugar fingersticks have been noted. Look orders for details. MFS/MODL Voice ID: [id number] Report ID: [id number]
[2018-01-15] MEDS: ENOXAPARIN 30 MG/0.3 ML SQ SCH (17:41)
[2018-01-15] MEDS: ATORVASTATIN 10 MG TAB PO SCH (20:49)
--- NOTE | 2018-01-15 21:53 | CON ---
Date of Consultation: 01/15/2018 INFECTIOUS DISEASE CONSULT NOTE History Of Present Illness: The patient is a 62-year-old male, paraplegic and diabetic, coming in ca th cellulitis of right foot and diabetic foot ulcer. The patient denies any headache, nausea, vomiti ng, chest pain, abdominal pain, constipation, or diarrhea. Repeat MRI showed, the patient had osteom yelitis. MRI done on 01/05/2018 had osteomyelitis involving fifth metatarsal head of the base of the fifth proximal phalanx of the right foot. Currently being treated with Rocephin. Wound cultures ar e pending, gram-positive cocci with mixed percy. The patient's cellulitis has improved. Past Medical History: Includes; 1.Hypercholesteremia. 2.Hypertension. 3.Diabetes mellitus. 4.Paraplegia. Social History: Nonsmoker. Nondrinker. Family History: Noncontributory. Medications: Rocephin. See MAR for other medications. Allergies: NO KNOWN DRUG ALLERGIES. Review of Systems: A 10-point review is performed. Physical Examination: General: This is a 62-year-old male, lying in bed, not in any acute cardiopulmonary distress. Vital Signs: Temperature 97, pulse 87, respirations 18, blood pressure 162/78. HEENT: Unremarkable. Neck: Supple. Lungs: Clear to auscultation. Heart: S1, S2. Regular. Abdomen: Soft, nontender. Bowel sounds positive. Extremity: No edema. Mild muscle wasting noted in lower extremity. Laboratory Data: Shows WBC 10,000 down from 11.6, hemoglobin 12.5, platelets are 320. Chemistry brian ws; sodium 139, potassium 4.3, chloride 103, bicarb 29, BUN 17, creatinine 1, glucose is 161. PICC line in place. Assessment And Plan: Right foot osteomyelitis of fifth proximal phalanx and metatarsal head. Contin ue IV antibiotics, a total course of 6 weeks. Medihoney with alginate Monday, Monday, Monday. We will follow the patient closely. Follow up with wound care team. Primary care doctor will follow u p with the patient closely. NF/MODL Voice ID: [id number] Report ID: [id number]
[2018-01-16 05:10] LABS: Absolute Lymphocytes (CBC) 1.6 K/uL (0.7-4.9); Absolute Monocytes 0.6 K/uL (0.1-1.3); Absolute Neutrophil 7.8 K/uL (1.8-8.0); Basophils % 0.7 % (0-1.3); Eosinophils % 3.2 % (0-4.4); Hematocrit 34.8 % (39.6-49.0); Lymphocytes % 15.1 % (15.3-44.8); MCH 30.8 pg (27.0-35.0); MCV 87.6 fL (80-100); MPV 8.3 fL (7.6-11.3); Monocytes % 6.1 % (3.3-12.3); RBC Red Blood Cell Count 3.98 M/uL (4.33-5.43)
[2018-01-16 05:23] LABS: Potassium 3.9 mmol/L (3.5-5.1)
[2018-01-16] MEDS: INSULIN -REGULAR HUMAN 50 UNIT/0.5 ML ML SQ SCH ×4 (07:30→20:55)
[2018-01-16] MEDS: MEDIHONEY 44 ML TOPICAL TUBE TOP SCH (08:33)
[2018-01-16] MEDS: CEFTRIAXONE/SWI 1gm 1 GM/10 ML SYR IV SCH ×2 (08:36→20:56)
[2018-01-16] MEDS: LISINOPRIL 20 MG TAB PO SCH (08:36)
[2018-01-16] MEDS: CYANOCOBALAMIN 1,000 MCG TAB PO SCH (08:36)
[2018-01-16] MEDS: PYRIDOXINE (VIT B6) 50 MG TAB PO SCH (08:36)
[2018-01-16] MEDS: cloNIDine HCl 0.1 MG TAB PO SCH ×2 (08:36→20:57)
[2018-01-16] MEDS: AMLODIPINE 5 MG TAB PO SCH (08:36)
[2018-01-16] MEDS: ASCORBIC ACID 500 MG TABLET PO SCH (08:36)
[2018-01-16] MEDS: JUVEN PACKET PO SCH ×2 (08:38→20:58)
[2018-01-16] MEDS: METOPROLOL TAR 50 MG TAB PO SCH ×2 (08:38→20:57)
[2018-01-16] MEDS: COLLAGENASE 30 GM OINTMENT TOP SCH (09:00)
--- NOTE | 2018-01-16 17:12 | PN ---
Subjective: The patient is sitting in bed, not in any acute cardiopulmonary distress. Objective: Vital Signs: Reviewed. Lungs: Clear to auscultation. Heart: S1, S2, regular. Abdomen: Soft, nontender. Bowel sounds positive. Extremity: Right foot wound noted. No erythematous changes on the foot at this time. Ulceration wi th no granulation tissue at the base with possible tendon exposure. Laboratory Data: Shows WBC 10.4, hemoglobin 12.3, and platelets are 403. Chemistry shows sodium 138 , potassium 3.9, chloride 101, bicarb 31, BUN 23, and creatinine 1. Assessment And Plan: Diabetic foot ulcer. Osteomyelitis. Continue IV antibiotic for 6 weeks. Benito torres as directed. We will follow the patient at the wound healing center in [place]. LEONORA/SABRINA Voice ID: [id number] Report ID: [id number]
[2018-01-16] MEDS: ENOXAPARIN 30 MG/0.3 ML SQ SCH (17:19)
--- NOTE | 2018-01-16 19:06 | PN ---
The patient is doing well. His vital signs and physical exam are not changed. Clinically stable. S ocial services will arrange for the patient home health to give him antibiotic Rocephin. Dr. Segovia has seen the patient and he filled the current antibiotics for the next 6 weeks. Arrangements will b e done for the patient for his IV antibiotics at home, this is expected to be by tomorrow so we can d ischarge him. Look discharge orders for details. MFS/MODL Voice ID: [id number] Report ID: [id number]
[2018-01-16] MEDS: ATORVASTATIN 10 MG TAB PO SCH (20:57)
[2018-01-17] MEDS: INSULIN -REGULAR HUMAN 50 UNIT/0.5 ML ML SQ SCH ×4 (07:30→21:32)
[2018-01-17] MEDS: ASCORBIC ACID 500 MG TABLET PO SCH (08:42)
[2018-01-17] MEDS: LISINOPRIL 20 MG TAB PO SCH (08:43)
[2018-01-17] MEDS: METOPROLOL TAR 50 MG TAB PO SCH ×2 (08:43→21:31)
[2018-01-17] MEDS: AMLODIPINE 5 MG TAB PO SCH (08:43)
[2018-01-17] MEDS: PYRIDOXINE (VIT B6) 50 MG TAB PO SCH (08:44)
[2018-01-17] MEDS: cloNIDine HCl 0.1 MG TAB PO SCH ×2 (08:44→21:33)
[2018-01-17] MEDS: CYANOCOBALAMIN 1,000 MCG TAB PO SCH (08:44)
[2018-01-17] MEDS: CEFTRIAXONE/SWI 1gm 1 GM/10 ML SYR IV SCH ×2 (08:45→21:31)
[2018-01-17] MEDS: COLLAGENASE 30 GM OINTMENT TOP SCH (08:46)
[2018-01-17] MEDS: MEDIHONEY 44 ML TOPICAL TUBE TOP SCH (08:46)
[2018-01-17] MEDS: JUVEN PACKET PO SCH ×2 (08:47→21:00)
[2018-01-17] MEDS: SODIUM CHLORIDE 0.9% 10ML INJ IV SCH ×2 (09:00→21:31)
[2018-01-17] MEDS: ENOXAPARIN 30 MG/0.3 ML SQ SCH (17:39)
[2018-01-17] MEDS: ATORVASTATIN 10 MG TAB PO SCH (21:31)
[2018-01-18 00:45] VITALS: O2SAT 97
[2018-01-18] MEDS: INSULIN -REGULAR HUMAN 50 UNIT/0.5 ML ML SQ SCH ×4 (07:30→21:00)
[2018-01-18] MEDS: JUVEN PACKET PO SCH ×2 (09:00→20:54)
[2018-01-18] MEDS: MEDIHONEY 44 ML TOPICAL TUBE TOP SCH ×2 (09:00→10:29)
[2018-01-18] MEDS: CEFTRIAXONE/SWI 1gm 1 GM/10 ML SYR IV SCH ×2 (10:25→20:54)
[2018-01-18] MEDS: AMLODIPINE 5 MG TAB PO SCH (10:26)
[2018-01-18] MEDS: cloNIDine HCl 0.1 MG TAB PO SCH ×2 (10:26→20:56)
[2018-01-18] MEDS: CYANOCOBALAMIN 1,000 MCG TAB PO SCH (10:26)
[2018-01-18] MEDS: LISINOPRIL 20 MG TAB PO SCH (10:27)
[2018-01-18] MEDS: METOPROLOL TAR 50 MG TAB PO SCH ×2 (10:27→21:00)
[2018-01-18] MEDS: ASCORBIC ACID 500 MG TABLET PO SCH (10:27)
[2018-01-18] MEDS: PYRIDOXINE (VIT B6) 50 MG TAB PO SCH (10:28)
[2018-01-18] MEDS: SODIUM CHLORIDE 0.9% 10ML INJ IV SCH ×2 (10:29→21:01)
[2018-01-18] MEDS ORDERED: FENTANYL CITR 100 MCG/2 ML ONE (12:11)
[2018-01-18] MEDS ORDERED: MIDAZOLAM HCL 2 MG/2 ML INJ ONE (12:11)
[2018-01-18] MEDS ORDERED: PROPOFOL 200 MG/20 ML VIAL IV ONE (12:11)
[2018-01-18] MEDS ORDERED: LIDOCAINE 2% MPF 5 ML VIAL ONE (12:11)
[2018-01-18] MEDS ORDERED: Mastisol Adhesive Liq ONE (13:21)
[2018-01-18] MEDS: ENOXAPARIN 30 MG/0.3 ML SQ SCH (17:05)
[2018-01-18 17:36] VITALS: TEMP 98.2
--- NOTE | 2018-01-18 19:22 | PN ---
Subjective: The patient lying in bed. No new acute events. Awaiting for home health services to co mmence. Objective: Vital Signs: Temperature 98.7, pulse 96, respirations 16, blood pressure 150/83. Lungs: Basal crackles. Heart: S1, S2. Regular. Abdomen: Soft, nontender. Bowel sounds positive Extremities: No edema. Laboratory Data: Reviewed. Assessment And Plan: Osteomyelitis of right foot, diabetic foot ulcer, healing. Continue antibiotic and wound care with Medihoney and alginate. We will follow the patient as needed. NF/MODL Voice ID: [id number] Report ID: [id number]
[2018-01-18] MEDS: ATORVASTATIN 10 MG TAB PO SCH (20:55)
[2018-01-18 21:02] VITALS: BP 139/78
[2018-01-19] MEDS ORDERED: MEDIHONEY 44 ML TOPICAL TUBE TOP SCH (09:00)
== END 2018-01-18 21:30 | disposition home health service (06) | DRG 638 ==
LOC: ER 12:06 → ERHOLD 15:12 → 4TH 17:08
PROVIDERS: ADMIT Internal Medicine; ATTEND Internal Medicine
PROC: 02HV33Z Insertion of Infusion Device into Superior Vena Cava, Percutaneous Approach (ICD-10-PCS; principal; 2018-01-14)
DX: E11.69 Type 2 diabetes mellitus with other specified complication (principal); M86.471 Chronic osteomyelitis with draining sinus, right ankle and foot; L97.518 Non-pressure chronic ulcer of other part of right foot with other specified severity; L03.115 Cellulitis of right lower limb; G82.20 Paraplegia, unspecified; E11.621 Type 2 diabetes mellitus with foot ulcer; I10 Essential (primary) hypertension; E78.5 Hyperlipidemia, unspecified; Z79.84 Long term (current) use of oral hypoglycemic drugs
CPT/HCPCS: 36415; 51702; 71045; 80048; 81003; 81015; 82962; 85025; 87070; 87075; 87086; 87088; 87205; 99285; J0696; J1650; J2250; J3010; J3590

== ENCOUNTER 2018-03-27 06:24 | Day surgery (SDC) | payer OTHER ==
[2018-03-23 11:11] LABS: Protime INR 1.06
[2018-03-23 11:15] LABS: Absolute Lymphocytes (CBC) 1.7 K/uL (0.7-4.9); Absolute Monocytes 0.5 K/uL (0.1-1.3); Basophils % 0.8 % (0-1.3); Eosinophils % 3.1 % (0-4.4); Hematocrit 37.3 % (39.6-49.0); Lymphocytes % 16.3 % (15.3-44.8); MCH 30.3 pg (27.0-35.0); MCV 89.3 fL (80-100); MPV 8.9 fL (7.6-11.3); Monocytes % 5.1 % (3.3-12.3); RBC Red Blood Cell Count 4.18 M/uL (4.33-5.43)
--- NOTE | 2018-03-24 10:59 | EKG ---
Test Date: 2018-03-23 Test Time: 10:36:09 Pulley Man: REMI MEASUREMENT RESULTS: Intervals: Rate: 56 AL: 112 QRSD: 90 QT: 398 QTc: 384 [place]: P: 55 AL: 112 QRS: 13 T: 19 INTERPRETIVE STATEMENTS: Sinus bradycardia Otherwise normal ECG No previous ECG available for comparison Electronically Signed On 03-24-18 10:55:53 CDT by Jesus Ta
[2018-03-27] MEDS ORDERED: NA CHLORIDE 0.9% 1,000 ML ONE (06:51)
[2018-03-27 07:11] VITALS: TEMP 97.4
[2018-03-27] MEDS ORDERED: MIDAZOLAM HCL 2 MG/2 ML INJ ONE (07:15)
[2018-03-27] MEDS ORDERED: PROPOFOL 200 MG/20 ML VIAL IV ONE (07:15)
[2018-03-27] MEDS ORDERED: FENTANYL CITR 100 MCG/2 ML ONE (07:16)
[2018-03-27] MEDS ORDERED: LIDOCAINE 2% MPF 5 ML VIAL ONE (07:16)
[2018-03-27] MEDS ORDERED: LIDOCAINE 1% MPF 30 ML VIAL ONE (07:19)
--- NOTE | 2018-03-27 08:25 | P.OP ---
Preoperative diagnosis: right fifth metatarsal and toe osteomyelitis Primary procedure: right partial fifth ray amputation Other procedure(s): none Anesthesia: sedation with 10cc of 1:1 0.5% marcaine 1%lidocaine plain Estimated blood loss: <10cc Specimen: bone Findings: distal right fifth metatarsal noted to be porous Operative Technique: patient was placed under sedation and 10 cc of local was injected in a local fashion right fifth metatarsal. PAT was inflated to 250 mmHg. Incision was placed over the dorsal aspect of the fifth metatarsal with a racked incision to excise the fifth digit. the fifth digit was disarticulated at mpj. Utilizing sharp disection the fifth metatarsal was freed from soft tissue. Utilizing an oscillating saw the distal third of the metatarsal was resected. Following this a more proximal piece was resected in a dorsal distal to plantar proximal orientation to demonstrate clear margins. The wound was irrigated and closure was obtained with 3-0 prolene. PAT was deflated with a prompt hyperemic response and a sterile dressing consisting of xeroform, 4X4s, kerlix, posterior splint and an kemar wrap Complications: None Transferred to: Recovery Room Condition: Good
[2018-03-27 09:19] VITALS: BP 107/63; O2SAT 95
== END 2018-03-27 09:05 | disposition home or self-care (01) ==
LOC: OR 06:24
PROVIDERS: ATTEND Podiatrist Foot & Ankle Surgery
PROC: 0Y6M0Z8 Detachment at Right Foot, Complete 5th Ray, Open Approach (ICD-10-PCS; principal; 2018-03-27 07:30)
DX: M86.8X7 Other osteomyelitis, ankle and foot (principal); I10 Essential (primary) hypertension; E11.9 Type 2 diabetes mellitus without complications
CPT/HCPCS: 28810; 36415; 82962; 85025; 85610; 85730; 88304; 88305; 88311 ×2; 93005; J2250; J3010; J7030

== ENCOUNTER 2018-08-08 07:33 | Day surgery (SDC) | payer OTHER ==
[2018-08-08] MEDS ORDERED: VANCOMYCIN 1.5 GM in NA CHLORIDE 0.9% 500 ML IVPB ONE (08:00)
[2018-08-08] MEDS ORDERED: CEFTRIAXONE/SWI 1gm 1 GM/10 ML SYR IV ONE (08:00)
[2018-08-08 08:36] VITALS: BP 123/63; TEMP 98; O2SAT 97
[2018-08-08 08:37] VITALS: BMI 34.4
== END 2018-08-08 10:41 | disposition home or self-care (01) ==
LOC: DS 07:33
PROVIDERS: ATTEND Internal Medicine
DX: M86.072 Acute hematogenous osteomyelitis, left ankle and foot (principal)
CPT/HCPCS: 96365; 96366; J0696

== ENCOUNTER 2018-09-09 09:35 | Emergency (ER) | payer OTHER ==
--- OUTSIDE RECORDS SUMMARY | 2018-09-09 09:36 | XMS REPORT ---
:1955 Author Organization [employer] Care Team Providers Name Role Phone Haresh Christiansen Provider Role Unavailable Allergies, Adverse Reactions, Alerts Substance Reaction Event Type N.K.D.A. 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 Problem Essential hypertension I10 Active Problem CKD (chronic kidney disease) stage N18.1 Active 1, GFR 90 ml/min or greater Problem Acute hematogenous osteomyelitis of M86.072 Active left ankle Problem Pure hypercholesterolemia E78.00 Active Problem Paraplegia, complete G82.21 Active Assessment Acute hematogenous osteomyelitis of M86.072 Active left ankle Assessment Testosterone deficiency in male E29.1 Active Assessment Sleep disturbance, unspecified G47.9 Active Assessment Paraplegia, complete 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.21 Active Assessment Diabetes 1.5, 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 Assessment Pure hypercholesterolemia E78.00 Active Assessment CKD (chronic kidney disease) stage N18.1 Active 1, GFR 90 ml/min or greater Assessment Essential hypertension I10 Active Medications Medication Code Code Instructions Start End Status Dosage System Date Date Vitamin B6 [facility] 16982950424 200 MG Orally Active 1 tablet Once a day Vitamin C ND 70862137097 1000 MG Orally Active 1 tablet Once a day Amlodipine ND 68840013043 5 MG Orally Once Active 1 tablet Besylate a day Lisinopril ND 38989086944 20 MG Orally Active 1 tablet Once a day Vitamin B12 [facility] 62243862815 1000 MCG Orally Active 1 tablet Once a day Multi Vitamin ND 43469401907 - Orally Once a Active 1 tablet day Glimepiride ND 35466342224 1 MG Orally Once Active 1 tablet a day with breakfast or the first main meal of the day Atorvastatin [facility] 94899096765 10 MG Orally Active 1 tablet Calcium Once a day Clonidine HCl [facility] 64954777497 0.2 MG Orally Active 1 tablet Once a day Testosterone [facility] 01256501226 200 MG/ML Active 1 ml Cypionate Intramuscular Metoprolol [facility] 79097860957 50 MG Orally Active 1 tablet Tartrate Twice a day with food Results No Known Results Summary Purpose [employer] Submission
--- OUTSIDE RECORDS SUMMARY | 2018-09-09 09:36 | XMS REPORT ---
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 Assessment Maculopapular rash R21 Active Assessment Spasms of the hands or feet R25.2 Active Assessment Pure hypercholesterolemia E78.00 Active Medications Medication Code Code Instructions Start End Status Dosage System Date Date Glimepiride [facility] 08920568242 1 MG Orally Active 1 tablet Once a day with breakfast or the first main meal of the day Testosterone [facility] 56839051824 200 MG/ML Active 1 ml Cypionate Intramuscular Vitamin B6 [facility] 85426856533 200 MG Orally Active 1 tablet Once a day Prednisone ND 90840606336 10 MG Orally August Active 1 tablet Once a day 2018 Clonidine HCl ND 68309452912 0.2 MG Orally Active 1 tablet Once a day Vitamin C ND 20772332258 1000 MG Orally Active 1 tablet Once a day Atorvastatin ND 83545094144 10 MG Orally August Inactive 1 tablet Calcium Once a day 2018 Metoprolol [facility] 91462998536 50 MG Orally Active 1 tablet Tartrate Twice a day with food Multi Vitamin [facility] 59916228581 - Orally Once a Active 1 tablet day Vitamin B12 [facility] 69997550725 1000 MCG Orally Active 1 tablet Once a day Gabapentin [facility] 78522982879 100 MG Orally August Active 1 capsule Twice a day 2018 Amlodipine [facility] 98475299502 5 MG Orally Active 1 tablet Besylate Once a day Lisinopril [facility] 39872153050 20 MG Orally Active 1 tablet Once a day Results No Known Results Summary Purpose [employer] Submission
--- OUTSIDE RECORDS SUMMARY | 2018-09-09 09:36 | XMS REPORT ---
[...] E78.00 Active Problem Paraplegia, complete G82.21 Active Medications No Known Medications Results No Known Results Summary Purpose [employer]Works Submission
[2018-09-09] MEDS ORDERED: METHYLPREDNISOLONE 125 MG INJ ONE (10:42)
[2018-09-09] MEDS ORDERED: predniSONE 10 MG TAB ONE (10:42)
[2018-09-09] MEDS ORDERED: SMZ./TMP. 800/160 MG TABLET ONE (10:42)
[2018-09-09] MEDS ORDERED: hydrOXYzine HCl 25 MG TAB ONE (10:43)
[2018-09-09] MEDS ORDERED: NA CHLORIDE 0.9% 500 ML ONE (10:43)
[2018-09-09] MEDS ORDERED: DIPHENHYDRAMINE 50 MG/ML VIAL ONE (10:43)
[2018-09-09] MEDS ORDERED: FAMOTIDINE 20 MG/2 ML VIAL IV ONE (10:43)
[2018-09-09 10:58] LABS: Absolute Lymphocytes (CBC) 1.5 K/uL (0.7-4.9); Absolute Neutrophil 5.1 K/uL (1.8-8.0); Basophils % 1.3 % (0-1.3); Eosinophils % 11.1 % (0-4.4); Hematocrit 35.1 % (39.6-49.0); MPV 8.3 fL (7.6-11.3); Monocytes % 11.7 % (3.3-12.3)
[2018-09-09 11:13] LABS: Bilirubin Total 0.4 mg/dL (0.2-1.0); Potassium 3.6 mmol/L (3.5-5.1)
--- NOTE | 2018-09-09 11:35 | EDPHYS ---
Physician Documentation [facility] Name: Mango Grey Age: 63 yrs Sex: Male : 1955 Arrival Date: 09/09/2018 Time: 09:39 Bed 6 Private MD: Haresh Christiansen ED Physician Gallito Posadas HPI: 09/09 10:04 This 63 yrs old Male presents to ER via Unassigned with complaints of inder Allergic Reaction. 10:04 The patient presents with itching, rash, redness of skin. Onset: The symptoms/episode inder began/occurred just prior to arrival, this morning. Associated signs and symptoms: Pertinent positives: hives, rash, swelling. Possible causes: antibiotics, vancomycin. At home the patient or guardian has treated the symptoms with Benadryl. Severity of symptoms: At their worst the symptoms were mild moderate in the emergency department the symptoms are unchanged. The patient has not experienced similar symptoms in the past. Historical: - Allergies: 10:00 No Known Allergies; ch - Home Meds: 10:00 amlodipine 5 mg tab 1 tab once daily [Active]; atorvastatin 10 mg Oral tab 1 tab once ch daily [Active]; Cipro 500 mg Oral tab 1 tab every 12 hours [Active]; clonidine HCl 0.2 mg Oral tab 1 tab 2 times per day [Active]; glimepiride 1 mg Oral tab 1 tab once daily [Active]; lisinopril 20 mg Oral tab 1 tab once daily [Active]; metoprolol tartrate 100 mg Oral tab 1 tab 2 times per day [Active]; spironolactone 25 mg Oral tab 1 tab once daily [Active]; - PMHx: 10:00 Diabetes - NIDDM; Hypertension; T10 paraplegic; osteomyelitis ankle; ch - Immunization history:: Adult Immunizations up to date. - Social history:: Smoking status: Patient/guardian denies using tobacco. - Family history:: not pertinent. - Ebola Screening: : Patient negative for fever greater than or equal to 101.5 degrees Fahrenheit, and additional compatible Ebola Virus Disease symptoms Patient denies exposure to infectious person Patient denies travel to an Ebola-affected area in the 21 days before illness onset No symptoms or risks identified at this time. ROS: 10:04 Constitutional: Negative for fever, chills, and weight loss, Eyes: Negative for injury, inder pain, redness, and discharge, ENT: Negative for injury, pain, and discharge, Neck: Negative for injury, pain, and swelling, Cardiovascular: Negative for chest pain, palpitations, and edema, Respiratory: Negative for shortness of breath, cough, wheezing, and pleuritic chest pain, Abdomen/GI: Negative for abdominal pain, nausea, vomiting, diarrhea, and constipation, Back: Negative for injury and pain, : Negative for injury, bleeding, discharge, and swelling, Neuro: Negative for headache, weakness, numbness, tingling, and seizure, Psych: Negative for depression, anxiety, suicide ideation, homicidal ideation, and hallucinations, Allergy/Immunology: Negative for hives, rash, and allergies, Endocrine: Negative for neck swelling, polydipsia, polyuria, polyphagia, and marked weight changes, Hematologic/Lymphatic: Negative for swollen nodes, abnormal bleeding, and unusual bruising. 10:04 Skin: Positive for rash. Exam: 10:04 Constitutional: This is a well developed, well nourished patient who is awake, alert, inder and in no acute distress. Head/Face: Normocephalic, atraumatic. Eyes: Pupils equal round and reactive to light, extra-ocular motions intact. Lids and lashes normal. Conjunctiva and sclera are non-icteric and not injected. Cornea within normal limits. Periorbital areas with no swelling, redness, or edema. ENT: Nares patent. No nasal discharge, no septal abnormalities noted. Tympanic membranes are normal and external auditory canals are clear. Oropharynx with no redness, swelling, or masses, exudates, or evidence of obstruction, uvula midline. Mucous membranes moist. Neck: Trachea midline, no thyromegaly or masses palpated, and no cervical lymphadenopathy. Supple, full range of motion without nuchal rigidity, or vertebral point tenderness. No Meningismus. Chest/axilla: Normal chest wall appearance and motion. Nontender with no deformity. No lesions are appreciated. Cardiovascular: Regular rate and rhythm with a normal S1 and S2. No gallops, murmurs, or rubs. Normal PMI, no JVD. No pulse deficits. Respiratory: Lungs have equal breath sounds bilaterally, clear to auscultation and percussion. No rales, rhonchi or wheezes noted. No increased work of breathing, no retractions or nasal flaring. Abdomen/GI: Soft, non-tender, with normal bowel sounds. No distension or tympany. No guarding or rebound. No evidence of tenderness throughout. Back: No spinal tenderness. No costovertebral tenderness. Full range of motion. Male : Normal genitalia with no discharge or lesions. MS/ Extremity: Pulses equal, no cyanosis. Neurovascular intact. Full, normal range of motion. Neuro: Awake and alert, GCS 15, oriented to person, place, time, and situation. Cranial nerves II-XII grossly intact. Motor strength 5/5 in all extremities. Sensory grossly intact. Cerebellar exam normal. Normal gait. Psych: Awake, alert, with orientation to person, place and time. Behavior, mood, and affect are within normal limits. 10:04 Skin: Appearance: Color: erythematous, Temperature: normal temperature, Moisture: normal moisture, petechiae, not noted, ecchymosis, not noted, diaphoresis is not appreciated. Vital Signs: 11:43 BP 110 / 62; Pulse 82; Resp 18; Pulse Ox 97% on R/A; aj1 12:30 BP 112 / 58; Pulse 78; Resp 16; Temp 98.8; Pulse Ox 99% on R/A; Pain 0/10; ch MDM: 09:45 Patient medically screened. [facility] 10:07 Data reviewed: vital signs, nurses notes, lab test result(s). [facility] 09/09 10:04 Order name: CBC with Diff; Complete Time: 11:34 [facility] 09/09 10:04 Order name: Comprehensive Metabolic Panel; Complete Time: 11:45 [facility] Administered Medications: 10:00 Drug: predniSONE 20 mg Route: PO; 10:30 Follow up: Response: No adverse reaction ch 10:30 Drug: SOLU-Medrol 125 mg Route: IVP; Site: right upper arm; ch 10:40 Follow up: Response: No adverse reaction 10:30 Drug: Bactrim (160 mg-800 mg (DS) 1 tablet Route: PO; ch 18:30 Follow up: Response: No adverse reaction ch 10:35 Drug: NS 0.9% 500 ml Route: IV; Rate: bolus; Site: right upper arm; 11:00 Follow up: IV Status: Completed infusion; IV Intake: 500ml ch 10:35 Drug: Pepcid 40 mg Route: IVP; Site: right upper arm; ch 10:40 Follow up: Response: No adverse reaction ch 10:40 Drug: Benadryl 25 mg Route: IVP; Site: right upper arm; ch 10:50 Follow up: Response: No adverse reaction; Marked relief of symptoms ch 10:40 Drug: Atarax 25 mg Route: PO; ch 10:40 Follow up: Response: No adverse reaction ch Disposition: 09/09/18 11:35 Discharged to Home. Impression: Rash and other nonspecific skin eruption, Allergy status to drugs, medicaments and biological substances. - Condition is Stable. - Discharge Instructions: Allergies, Adult, Drug Rash, Rash, Rash, [id number]. - Prescriptions for Hydroxyzine HCl 50 mg Oral Tablet - take 1 tablet by ORAL route every 8 hours As needed; 30 tablet. Pepcid 20 mg Oral Tablet - take 1 tablet by ORAL route every 12 hours for 10 days; 20 tablet. Bactrim DS 800- 160 mg Oral Tablet - take 1 tablet by ORAL route every 12 hours for 10 days; 20 tablet. Prednisone 20 mg Oral Tablet - take 2 tablet by ORAL route once daily for 5 days; 10 tablet. - Medication Reconciliation Form, Thank You Letter, Antibiotic Education, Prescription Opioid Use form. - Follow up: Haresh Christiansen; When: 2 - 3 days; Reason: Recheck today's complaints, Continuance of care, Re-evaluation by your physician. - Problem is new. - Symptoms have improved. Signatures: Dispatcher [employer] EDAkilah Christine RN RN ch Anderson, Corey, MD MD cha Corrections: (The following items were deleted from the chart) 12:50 11:35 09/09/2018 11:35 Discharged to Home. Impression: Rash and other nonspecific skin ch eruption; Allergy status to drugs, medicaments and biological substances. Condition is Stable. Discharge Instructions: Allergies, Adult, Drug Rash, Rash, Rash, Ptcy-mo-Urld. Prescriptions for Hydroxyzine HCl 50 mg Oral Tablet - take 1 tablet by ORAL route every 8 hours As needed; 30 tablet, Pepcid 20 mg Oral Tablet - take 1 tablet by ORAL route every 12 hours for 10 days; 20 tablet, Bactrim DS 800-160 mg Oral Tablet - take 1 tablet by ORAL route every 12 hours for 10 days; 20 tablet, Prednisone 20 mg Oral Tablet - take 2 tablet by ORAL route once daily for 5 days; 10 tablet. and Forms are Medication Reconciliation Form, Thank You Letter, Antibiotic Education, Prescription Opioid Use. Follow up: Haresh Christiansen; When: 2 - 3 days; Reason: Recheck today's complaints, Continuance of care, Re-evaluation by your physician. Problem is new. Symptoms have improved. inder
--- NOTE | 2018-09-09 12:52 | ER ---
Nurse's Notes [facility] Name: Mango Grey Age: 63 yrs Sex: Male : 1955 Arrival Date: 09/09/2018 Time: 09:39 Bed 6 Private MD: Haresh Christiansen Diagnosis: Rash and other nonspecific skin eruption;Allergy status to drugs, medicaments and biological substances Presentation: 09/09 09:50 Presenting complaint: Patient states: swelling and itching to face, has started today ch adn getting worse, happened 3[address] his vancomycin infusion. 09:50 Transition of care: patient was not received from another setting of care. Onset: The ch symptoms/episode began/occurred acutely. Anaphylaxis evaluation, the patient reports or I have noted the following symptoms which indicate a significant risk of anaphylaxis:. Onset of symptoms was September 09, 2018 at 08:30. Risk Assessment: Do you want to hurt yourself or someone else? Patient reports no desire to harm self or others. Initial Sepsis Screen: Does the patient meet any 2 criteria? No. Patient's initial sepsis screen is negative. Does the patient have a suspected source of infection? No. Patient's initial sepsis screen is negative. Care prior to arrival: None. 09:50 Method Of Arrival: Wheelchair ch 09:50 Acuity: KATHIE 3 ch Triage Assessment: 09:50 General: Appears in no apparent distress. comfortable, Behavior is calm, cooperative, ch appropriate for age. Pain: Denies pain. EENT: Eyes swelling to norberto eye lids, lips, and cheeks. c/o itching all over. . Neuro: No deficits noted. Cardiovascular: No deficits noted. Respiratory: No deficits noted. GI: No signs and/or symptoms were reported involving the gastrointestinal system. : No signs and/or symptoms were reported regarding the genitourinary system. Derm: Skin is pink, warm \T\ dry. Historical: - Allergies: 10:00 No Known Allergies; ch - Home Meds: 10:00 amlodipine 5 mg tab 1 tab once daily [Active]; atorvastatin 10 mg Oral tab 1 tab once ch daily [Active]; Cipro 500 mg Oral tab 1 tab every 12 hours [Active]; clonidine HCl 0.2 mg Oral tab 1 tab 2 times per day [Active]; glimepiride 1 mg Oral tab 1 tab once daily [Active]; lisinopril 20 mg Oral tab 1 tab once daily [Active]; metoprolol tartrate 100 mg Oral tab 1 tab 2 times per day [Active]; spironolactone 25 mg Oral tab 1 tab once daily [Active]; - PMHx: 10:00 Diabetes - NIDDM; Hypertension; T10 paraplegic; osteomyelitis ankle; ch - Immunization history:: Adult Immunizations up to date. - Social history:: Smoking status: Patient/guardian denies using tobacco. - Family history:: not pertinent. - Ebola Screening: : Patient negative for fever greater than or equal to 101.5 degrees Fahrenheit, and additional compatible Ebola Virus Disease symptoms Patient denies exposure to infectious person Patient denies travel to an Ebola-affected area in the 21 days before illness onset No symptoms or risks identified at this time. Screenin:50 Abuse screen: Denies threats or abuse. Denies injuries from another. Nutritional ch screening: No deficits noted. Tuberculosis screening: No symptoms or risk factors identified. Fall Risk None identified. Assessment: 11:42 Reassessment: Patient states that he is feeling better since medications were aj1 administered. 12:50 Reassessment: Patient appears in no apparent distress at this time. Patient and/or ch family updated on plan of care and expected duration. Pain level reassessed. Patient is alert, oriented x 3, equal unlabored respirations, skin warm/dry/pink. Patient states feeling better. Patient states symptoms have improved. 12:50 Respiratory: Airway is patent Respiratory effort is even, unlabored, Breath sounds are ch clear bilaterally. Vital Signs: 11:43 BP 110 / 62; Pulse 82; Resp 18; Pulse Ox 97% on R/A; aj1 12:30 BP 112 / 58; Pulse 78; Resp 16; Temp 98.8; Pulse Ox 99% on R/A; Pain 0/10; ch ED Course: 09:39 Patient arrived in ED. mr 09:39 Haresh Christiansen MD is Private Physician. mr 09:45 Gallito Posadas MD is Attending Physician. inder 09:50 Arm band placed on left wrist. Patient placed in an exam room, on a stretcher, on pulse ch oximetry. 11:35 Haresh Christiansen MD is Referral Physician. inder 11:43 No provider procedures requiring assistance completed. Patient did not have IV access aj1 during this emergency room visit. 12:50 Akilah Singh, RN is Primary Nurse. 12:50 No apparent distress. Resting quietly. ch 12:50 Patient has correct armband on for positive identification. Bed in low position. Call light in reach. Side rails up X 1. Pulse ox on. NIBP on. Warm blanket given. PO fluids given. 19:36 Triage completed. ch Administered Medications: 10:00 Drug: predniSONE 20 mg Route: PO; ch 10:30 Follow up: Response: No adverse reaction ch 10:30 Drug: SOLU-Medrol 125 mg Route: IVP; Site: right upper arm; ch 10:40 Follow up: Response: No adverse reaction ch 10:30 Drug: Bactrim (160 mg-800 mg (DS) 1 tablet Route: PO; ch 18:30 Follow up: Response: No adverse reaction ch 10:35 Drug: NS 0.9% 500 ml Route: IV; Rate: bolus; Site: right upper arm; ch 11:00 Follow up: IV Status: Completed infusion; IV Intake: 500ml ch 10:35 Drug: Pepcid 40 mg Route: IVP; Site: right upper arm; ch 10:40 Follow up: Response: No adverse reaction ch 10:40 Drug: Benadryl 25 mg Route: IVP; Site: right upper arm; ch 10:50 Follow up: Response: No adverse reaction; Marked relief of symptoms ch 10:40 Drug: Atarax 25 mg Route: PO; ch 10:40 Follow up: Response: No adverse reaction ch Intake: 11:00 IV: 500ml; Total: 500ml. Outcome: 11:35 Discharge ordered by . [facility] 11:44 Discharged to home via wheelchair. aj1 11:44 Condition: good 11:44 Discharge instructions given to patient, Instructed on discharge instructions, follow up and referral plans. medication usage, Demonstrated understanding of instructions, follow-up care, medications, Prescriptions given X 4. 12:50 Patient left the ED. Signatures: Akilah Singh, Jovita Roland RN, ch, RN RN ajGallito Lee MD MD cha Rivera, Mary mr
[2018-09-09 13:03] VITALS: BP 110/62; O2SAT 97
== END 2018-09-09 12:50 | disposition home or self-care (01) ==
LOC: ER 09:35
DX: R21 Rash and other nonspecific skin eruption (principal); I10 Essential (primary) hypertension; E11.9 Type 2 diabetes mellitus without complications; Z88.8 Allergy status to other drugs, medicaments and biological substances
CPT/HCPCS: 85025; 36415; 80053; 96375; 96374; 99283; J2930; J7512

== ENCOUNTER 2020-03-30 10:14 | Observation (INO) | payer OTHER ==
--- OUTSIDE RECORDS SUMMARY | 2020-03-30 10:17 | XMS REPORT ---
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 Active injury Problem Sleep disturbance, unspecified G47.9 Active Problem Neurogenic bladder N31.9 Active Problem Scoliosis of thoracic spine, M41.9 Active unspecified scoliosis type Problem Stage 2 chronic kidney disease N18.2 Active Problem 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 Active ulcer Problem 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 with unspecified severity Problem Paraplegia, complete G82.21 Active Problem Testosterone deficiency in male E29.1 Active Problem Diabetes 1.5, 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 Problem Pure hypercholesterolemia E78.00 Ac tive Problem 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 with type 2 diabetes mellitus Problem Non-pressure chronic ulcer of L97.929 Active unspecified part of left lower leg with unspecified severity Problem Acute hematogenous osteomyelitis of M86.072 Active left ankle Problem Varicose veins of left lower I83.029 Active extremity with ulcer of unspecified site Problem Acute hematogenous osteomyelitis of M86.071 Active right foot Problem CKD (chronic kidney disease) stage N18.1 Active 1, GFR 90 ml/min or greater Problem Non-pressure chronic ulcer of other L97.519 Active part of right foot with unspecified severity Medications No Known Medications Results No Known Results Summary Purpose [employer] Submission
--- OUTSIDE RECORDS SUMMARY | 2020-03-30 10:17 | XMS REPORT | Continuity of Care Document ---
:1955 Author Organization [facility] t Address [address] [place] [address] Care Team Providers Name Role Phone Unavailable Unavailable Unavailable Payers Payer Name Policy Type Policy Number Effective Date Expiration Date S ource Problems Condition Condition Condition Status Onset Resolution Last Treating Co mments Source Name Details Category Date Date Treatment Clinician Date Type 2 Type 2 Problem Active [facility] diabetes Diabetes 3-09 Family mellitus Mellitus 00:00: Practi c 00 e Essential Essential Problem Active [facility] hypertensi Hypertensi 3-09 Fa jewel on on 00:00: Practic 00 e Pressure Pressure Problem Active [facility] ulcer Ulcer 3 Family stage 3 Stage 3 00:00: Practic 00 e Infection Infection Problem Active [facility] of bone of Bone 3-09 Family 00:00: Practic 00 e Decreased Decreased Problem Active [facility] testostero Testostero 3-09 Fa jewel ne level ne Level 00:00: Practi c 00 e Pressure Pressure Problem Active [facility] ulcer of Ulcer of 3-09 Family right foot Right Foot 00:00: Pr actic 00 e Paraplegia Paraplegia Problem Active [facility] 6[facility]20 Family 00:00: Practic 00 e Acute Acute Problem Active [facility] hematogeno hematogeno [facility] - us us Memoria osteomyeli osteomyeli l tis of tis of Outpati right foot right foot en t Clinics Testostero Testostero Problem Active [facility] ne ne [facility] - deficiency deficiency Me moria in male in male l Outpati ent Clinics Sleep Sleep Problem Active [facility] disturbanc disturbanc [facility] - e, e, Memoria unspecifie unspecifie l d d Outpati ent Clinics Paraplegia Paraplegia Problem Active [facility] following following [facility] - spinal spinal Memoria cord cord l injury injury Outpati ent Clinics Diabetes Diabetes Problem [facility] - 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 l Outpati ent Clinics Essential Essential Problem Active [facility] hypertensi hypertensi [facility] - on on Memoria l Outpati ent Clinics CKD CKD Problem Active [facility] (chronic (chronic [facility] - kidney kidney Memoria disease) disease) l stage 1, stage 1, Outpat i GFR 90 GFR 90 ent ml/min or ml/min or Clin ics greater greater Acute Acute Problem Active [facility] hematogeno hematogeno [facility] - us us Memoria osteomyeli osteomyeli l tis of tis of Outpati left ankle left ankle en t Clinics Pure Pure Problem Active [facility] hyperchole hyperchole [facility]oro claudines - sterolemia sterolemia Me moria l Outpati ent Clinics Paraplegia Paraplegia Problem Active [facility] , complete , complete [facility] - Memoria l Outpati ent Clinics Diabetic Diabetic Problem Active [facility]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 [facility] - athy athy Memoria associated associated l with type with type Outp ati 2 diabetes 2 diabetes en t mellitus mellitus Clinic s Non-pressu Non-pressu Problem Active [facility] re chronic re chronic [facility] - ulcer of ulcer of Memori a unspecifie unspecifie l d part of d part of Outp ati left lower left lower en t leg with leg with Clinic s unspecifie unspecifie d severity d severity Varicose Varicose Problem [facility] veins of veins of [facility] - left lower left lower Me moria extremity extremity l with ulcer with ulcer Ou tpati of of ent unspecifie unspecifie Cl inics d site d site Urinary Urinary Problem Active [facility] incontinen incontinen [facility] - ce without ce without Me moria sensory sensory l awareness awareness Outp ati ent Clinics Neurogenic Neurogenic Problem Active [facility] bladder bladder [facility] - Memoria l Outpati ent Clinics Stage 2 Stage [address] [facility] chronic chronic [facility] - kidney kidney Memoria disease disease l [facility] Peripheral Peripheral Problem Active [facility] edema edema [facility] - Memoria l [facility] ent Clinics History of History of Problem Active [facility] complete complete [facility] Memoria amputation amputation l of fifth of fifth Outpat i toe of toe of ent right foot right foot Cl inics Non-pressu Non-pressu Problem Active [facility] re chronic re chronic [facility] - ulcer of ulcer of Memori a other part other part l of left of left Outpati foot with foot with ent unspecifie unspecifie Cl inics d severity d severity Type 2 Type [address] [facility] diabetes diabetes [facility] - mellitus mellitus Memori a with foot with foot l ulcer ulcer [facility] Wheelchair Wheelchair Problem Active [facility] dependent dependent [facility] - Memoria l [facility] Scoliosis Scoliosis Problem Active [facility] of of [facility] - thoracic thoracic Memori a spine, spine, l unspecifie unspecifie Ou tpati d d ent scoliosis scoliosis Clin ics type type Non-pressu Non-pressu Problem Active [facility] re chronic re chronic [facility] - ulcer of ulcer of Memori a other part other part l of right of right Outpat i foot with foot with ent unspecifie unspecifie Cl inics d severity d severity Allergies, Adverse Reactions, Alerts Allergy Allergy Status Severity Reaction(s) Onset Inactive Treating Comm ents Source Name Type Date Date Clinician No Known DA Active [facility] Allergie 02-16 Clear s 00:00: Mo 00 [facility] Vancomyc Allergy Active Mild Rash [place] in to Family substanc Practic e e Social History Smoking Status Start Date Stop Date Source Former Smoker [facility] Medications Ordered Filled Start Stop Current Ordering Indication Dosage Frequency Signature Comments Components Source Medication Medication Date Date Medication? Clinician (SIG) Name Name amlodipine amlodipine No 1 Q1D amlodipine [facility] 5 mg tablet 5 mg tablet 5 mg F amily Take 1 Take 1 tablet Practic tablet tablet Take 1 e every day every day tablet by oral by oral every day route. route. by oral route. B12 1 tab B12 1 tab No B12 1 tab [place] daily daily daily Family Practic e clonidine clonidine No 1 Q1D clonidine [facility] HCl 0.2 mg HCl 0.2 mg HCl 0.2 mg Family tablet Take tablet Take tablet Practic 1 tablet 1 tablet Take 1 e every day every day tablet by oral by oral every day route. route. by oral route. gabapentin gabapentin No 1capsul TID gabapentin [facility] 300 mg 300 mg e(s) 300 mg Family capsule capsule capsule Practi c Take 1 Take 1 Take 1 e capsule 3 capsule 3 capsule 3 times a day times a day times a by oral by oral day by route. route. oral route. lisinopril lisinopril No 1 Q1D lisinopril [facility] 20 mg 20 mg 20 mg Family tablet Take tablet Take tablet Practic 1 tablet 1 tablet Take 1 e every day every day tablet by oral by oral every day route. route. by oral route. metoprolol metoprolol No 1 BID metoprolol [facility] tartrate 50 tartrate 50 tartrate Family mg tablet mg tablet 50 mg Prac tic Take 1 Take 1 tablet e tablet tablet Take 1 twice a day twice a day tablet by oral by oral twice a route. route. day by oral route. Vitamin C Vitamin C No Vitamin C [place] take 1 tab take 1 tab take 1 tab Family daily daily daily Practic e Clonidine Clonidine Yes Radha [address] [facility] HCl HCl Millender [facility] Testosteron Testosteron Yes Radha [address] [facility] [facility] e Cypionate e Cypionate [facility] Metoprolol Metoprolol Yes Radha [address] [facility] Tartrate Tartrate Mill[place] with food [facility] - [facility] l [facility] Multi Multi Yes Radha [address] [facility] Vitamin Vitamin [facility] - Mem[facility] Lisinopril Lisinopril Yes Radha [address] [facility] Millender [facility] Gabapentin Gabapentin Yes Radha [address] [facility] Millender [facility] Vitamin B6 Vitamin B6 Yes Radha [address] [facility] Millender [facility] Norvasc Norvasc Yes Radha TAKE [address] [facility] Millender TABLET BY [facility]ukes - MOUTH Memoria EVERY DAY l [facility] Vitamin B12 Vitamin B12 Yes Rdaha [address] [facility] Millender [facility] Amlodipine Amlodipine Yes Radha [address] [facility] Besylate Besylate [facility] [place] [facility] - Memoria l [facility] Vitamin C Vitamin C Yes Radha [address] [facility] Millender [facility] l Outpati ent Clinics Vital Signs Vital Name Observation Time Observation Value Comments Source BP Diastolic 2019-09-09 00:00:00 80 mm[Hg] [facility] Height 2019-09-09 00:00:00 71 [in_i] [facility] BP Systolic 2019-09-09 00:00:00 145 mm[Hg] [facility] Procedures This patient has no known procedures. Encounters Start End Encounter Admission Attending Care Care Encounter Source Date/Time Date/Time Type Type Clinicians Facility Department ID 2020-02-17 2020-02-17 [facility] [id number] [facility] 08:27:00 08:27:00 [facility] Medicine Outpati ent Clinics 2019-10-08 2019-10-08 [facility] [id number] [facility] 08:30:00 08:30:00 [facility] Medicine Outpati ent Clinics 2019-09-13 2019-09-13 [facility] [id number] [address] 09:05:00 09:05:00 [facility] Medicine Outpati ent Clinics 2019-09-09 2019-09-09 Hillary [facility] [place] - [id number] [facility] 00:00:00 00:00:00 [facility] cori campbell FORMATION 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 2019-08-19 2019-08-19 [facility] [id number] [facility] 09:25:00 09:25:00 [facility] Medicine Outpati ent Clinics 2019-07-30 2019-07-30 [facility] [id number] 14:39:00 14:39:00 [facility] Medicine Outpati ent Clinics 2019-07-08 2019-07-08 [facility] [id number] 22:11:00 22:11:00 t [facility] Medicine Outpati ent Clinics 2019-07-08 2019-07-08 [facility] [id number] 10:45:00 10:45:00 t [facility] Medicine Outpati ent Clinics 2019-05-06 2019-05-06 [facility] [id number] [address] 20:13:00 20:13:00 t [facility] Medicine Outpati ent Clinics 2019-04-25 2019-04-25 [facility] [id number] 15:20:00 15:20:00 t [facility] Medicine Outpati ent Clinics 2019-04-23 2019-04-23 [facility] [id number] 08:43:00 08:43:00 t [facility] Medicine Outpati ent Clinics 2019-04-18 2019-04-18 [facility] [id number] 15:00:00 15:00:00 t [facility] Medicine Outpati ent Clinics 2019-04-11 2019-04-11 [facility] [id number] 13:18:00 13:18:00 t [facility] Medicine Outpati ent Clinics 2019-04-01 2019-04-01 [facility] [id number] 08:45:00 08:45:00 t [facility] Medicine Outpati ent Clinics 2019-02-25 2019-02-25 [facility] [id number] 13[facility]30:00 13:30:00 t [facility] Medicine Outpati ent Clinics 2019-02-19 2019-02-19 [facility] [id number] 09[facility]30:00 09:30:00 t [facility] Medicine Outpati ent Clinics 2019-01-31 2019-01-31 [facility] [id number] 11:20:00 11:20:[address] [employer] [address] [facility] - [address] [facility] Medicine Outpati ent Clinics 2018-11-13 2018-11-13 Outpatient [facility] [id number] 14:25:00 14:25:[address] [facility] Medicine Outpati ent Clinics 2018-09-11 2018-09-11 [facility] [id number] 10:00:00 10:00:[address] [facility] [address] [facility] Medicine Outpati ent Clinics 2018-09-07 2018-09-07 [facility] [id number] 11:18:00 11:18:[address] [facility] [address] [facility] Medicine Outpati ent Clinics 2018-09-03 2018-09-03 [facility] [id number] 11:30:00 11:30:[address] [facility] [address] [facility] [address] [facility] Medicine Outpati ent Clinics 2018-08-02 2018-08-02 [facility] [id number] 16:07:00 16:07:[address] [facility] [address] [facility] Medicine Outpati ent Clinics 2018-08-02 2018-08-02 [facility] [id number] 09:45:00 09:45:00 t [facility] s - Road [facility] Medicine Outpati ent Clinics Results Test Description Test Time Test Comments Results Result Comments Source SURGICAL SPECIMENS 2019-05-03 10:05:00 RUN DATE: 05/03/19 [facility] *LIVE* PAGE 1 RUN TIME: 1005 Specimen Inquiry RUN USER: INTERFACE KERVIN IENT: SHAHZAD HERNANDEZ LOC: AMANDA #: [id number] AGE/SX: 63/M ROOM: RE04/26/19REG DR: Lashonda Finley MD : 54 BED: DIS: STATUS: [facility] TLOC: SPEC #: [id number] RECD: 04/29/19 STATUS: CHRISTIAN REQ #: [id number] CARLINE: 04/29/[address] [facility] [address]: Lashonda Finley MD ENTERED: 04/30/19 SP TYPE: SURG SPEC OTHR DR: Radha Johnson MD ORDERED: GM LEVEL 4 CODES: [id number] - COLON, NOS COPIES TO: Lashonda Finley MD [address] [place], [place] [id number] Radha Johnson MD [address] [id number] PROCEDURES: GM LEVEL 4 (Incomplete) TISSUES: 1. COLON, NOS - Colon, transverse, bx. FINAL DIAGNOSIS Colon, transverse, bx.: Inflammatory polyp with surface ulceration, no "microscopic colitis" seen. GROSS AND MICROSCOPIC GROSS EXAMINATION: Received is/are the specimen/s designated with the appropriate dimensions and block designation: 1. Colon, transverse, bx.: One segment of pink-lord tissue, measuring up to 0.6 cm. in greatest dimension. MICROSCOPIC EXAMINATION: Sections of the "Colon, transverse, bx." reveal changes of an inflammatory polyp. The lamina propria is expanded and the tissue is polypoid. The stroma contains a mixed acute and chronic inflammatory infiltrate. No definite evidence of "microscopic colitis" is seen. The surface appears ulcerated in areas. CONTINUED ON NEXT PAGE RUN DATE: 05/03/19 [facility] *LIVE* PAGE 2 RUN TIME: 1005 Specimen Inquiry RUN USER: INTERFACE LUCINDA Umana #: [id number] PATIENT: SHAHZAD HERNANDEZ #[id number] (Continued)-------- -------- POST-OP DIAGNOSIS Hyperplastic polyp PRE-OP DIAGNOSIS Polyp, adenomatous, hemorrhoid bleeding, hyperplastic polyp of intestine ------ Signed SIGNATURE ON FILE JamelkylerMinerva MD 05/03/19 1005 END OF REPORT GLUBED 2019-04-26 10:59:00 Test Item Value Reference Range Interpretation Comme nts GLUBED (test code = GLUBED) 94 MG/DL 70-110 N Performed by certified jigger machine operator at [facility] BASIC METABOLIC [id number] 10:02:00 Test Item Value Reference Range Interpretation Comments SODIUM (test code = NA) 139 mEq/L 134-147 N POTASSIUM (test code = 4.2 mEq/L 3.4-5.0 N K) CHLORIDE (test code = 104 mEq/L 100-108 N CL) CARBON DIOXIDE (test 28 mEq/L 21-33 N code = CO2) ANION GAP (test code = 11 0-20 N GAP) GLUCOSE (test code = 106 mg/dL 70-110 N GLU) BLOOD UREA NITROGEN 14 mg/dL 7-18 N (test code = BUN) GLOMERULAR FILTRATION 75.2 80-90 L Units of measure = RATE (test code = GFR) ml/mi n/1.73 m2 CREATININE (test code = 1.0 mg/dL 0.6-1.3 N CREAT) CALCIUM (test code = 8.7 mg/dL 8.0-10.5 N CA) BASIC METABOLIC [id number] 09:58:00 Test Item Value Reference Range Interpretation Comments SODIUM (test code = NA) 139 mEq/L 134-147 N POTASSIUM (test code = K) 4.2 mEq/L 3.4-5.0 N CHLORIDE (test code = CL) 104 mEq/L 100-108 N CARBON DIOXIDE (test code = CO2) 28 mEq/L 21-33 N ANION GAP (test code = GAP) 11 0-20 N GLUCOSE (test code = GLU) 106 mg/dL 70-110 N BLOOD UREA NITROGEN (test code = 14 mg/dL 7-18 N BUN) GLOMERULAR FILTRATION RATE (test 80-90 code = GFR) CREATININE (test code = CREAT) mg/dL 0.6-1.3 CALCIUM (test code = CA) 8.7 mg/dL 8.0-10.5 N - XR CHEST 2 [id number] 11:20:00 FAX: Lashonda Correia MD [phone] [place]: St: PRE FAX: Radha Child [phone] FAX: Yuliana Ramsay N Name: SHAHZAD HERNANDEZ [facility] : 1955 Age/S: 63/M [address] [place] [address] Unit #: [id number] Loc: [place] [address] Phys: Yuliana Ramsay FORMATION TESTING OPERATOR Acct: [id number] Dis Date: Status: PRE [facility] [place] #: [phone] Exam Date: 04/23/2019 110 FAX #: [phone] Reason: PRE-OP COLONOSCOPY EXAMS: CPT CODE: [id number] XR CHEST 2 V 33113 CHEST RADIOGRAPHS - PA AND LATERAL: COMPARISON: February 17, 2016 CLINICAL HISTORY: PRE-OP COLONOSCOPY The cardiopericardial silhouette is within normal limits. Lungs are clear. No vascular congestion or pneumothorax. Lung volumes are low. [place] rods are presentin the thoracolumbar spine and there are surgical clips in the left side of the neck. IMPRESSION: No acute pulmonary abnormality. at 1120 Reported and signed by: Brian Garza M.D. CC: Lashonda Finley MD; Radha Johnson MD; Yuliana Ramsay NP Technologist: Nati Alejandro, RT(R) [facility] Date/Time/By: 04/23/2019 (1120) : By: [email or web address] Orig Print D/T: S: 04/23/2019 (1123) PAGE 1 Signed ReportBASIC METABOLIC [id number] 10:19:00 Test Item Value Reference Range Interpretation Comments SODIUM (test code = NA) 135 mEq/L 134-147 N POTASSIUM (test code = 4.5 mEq/L 3.4-5.0 N K) CHLORIDE (test code = 103 mEq/L 100-108 N CL) CARBON DIOXIDE (test 32 mEq/L 21-33 N code = CO2) ANION GAP (test code = 5 0-20 N GAP) GLUCOSE (test code = 125 mg/dL 70-110 H GLU) BLOOD UREA NITROGEN 21 mg/dL 7-18 H (test code = BUN) GLOMERULAR FILTRATION 75.2 80-90 L Units of measure = RATE (test code = GFR) ml/mi n/1.73 m2 CREATININE (test code = 1.0 mg/dL 0.6-1.3 N CREAT) CALCIUM (test code = 9.1 mg/dL 8.0-10.5 N CA) BASIC METABOLIC [id number] 10:16:00 Test Item Value Reference Range Interpretation Comments SODIUM (test code = NA) 135 mEq/L 134-147 N POTASSIUM (test code = K) 4.5 mEq/L 3.4-5.0 N CHLORIDE (test code = CL) 103 mEq/L 100-108 N CARBON DIOXIDE (test code = CO2) 32 mEq/L 21-33 N ANION GAP (test code = GAP) 5 0-20 N GLUCOSE (test code = GLU) 125 mg/dL 70-110 H BLOOD UREA NITROGEN (test code = 21 mg/dL 7-18 H BUN) GLOMERULAR FILTRATION RATE (test 80-90 code = GFR) CREATININE (test code = CREAT) mg/dL 0.6-1.3 CALCIUM (test code = CA) 9.1 mg/dL 8.0-10.5 N CBC W/AUTO [id number] 10:02:00 Test Item Value Reference Range Interpretation Comments WHITE BLOOD CELL (test code = 10.04 x10 3/uL 4.5-11.0 N WBC) RED BLOOD CELL (test code = 4.45 x10 6/uL 4.00-5.60 N RBC) HEMOGLOBIN (test code = HGB) 13.8 g/dL 12.5-16.9 N HEMATOCRIT (test code = HCT) 41.8 % 37.5-50.7 N MEAN CELL VOLUME (test code = 93.9 fL 81.0-99.0 N MCV) MEAN CELL HGB (test code = 31.0 pg 27.0-33.0 N MCH) MEAN CELL HGB CONCETRATION 33.0 g/dL 33.0-37.0 N (test code = MCHC) RED CELL DISTRIBUTION WIDTH CV 12.8 % 11.5-14.5 N (test code = RDW) RED CELL DISTRIBUTION WIDTH SD 44.4 fL 37.0-54.0 N (test code = RDW-SD) PLATELET COUNT (test code = 345 x10 3/uL 150-400 N PLT) MEAN PLATELET VOLUME (test 10.5 fL 7.0-9.0 H code = MPV) NEUTROPHIL % (test code = NT%) 77.5 % 56.0-77.0 H IMMATURE GRANULOCYTE % (test 0.6 % 0.0-2.0 N code = IG%) LYMPHOCYTE % (test code = LY%) 14.9 % 14.0-32.0 N MONOCYTE % (test code = MO%) 4.5 % 4.8-9.0 L EOSINOPHIL % (test code = EO%) 1.9 % 0.3-3.7 N BASOPHIL % (test code = BA%) 0.6 % 0.0-2.0 N NUCLEATED RBC % (test code = 0.0 % 0-0 N NRBC%) NEUTROPHIL # (test code = NT#) 7.78 x10 3/uL 2.0-7.6 H IMMATURE GRANULOCYTE # (test 0.06 x10 3/uL 0.00-0.03 H code = IG#) LYMPHOCYTE # (test code = LY#) 1.50 x10 3/uL 1.0-3.8 N MONOCYTE # (test code = MO#) 0.45 x10 3/uL 0.1-0.8 N EOSINOPHIL # (test code = EO#) 0.19 x10 3/uL 0.0-0.2 N BASOPHIL # (test code = BA#) 0.06 x10 3/uL 0.0-0.2 N NUCLEATED RBC # (test code = 0.00 x10 3/uL 0.0-0.1 N NRBC#) MANUAL DIFF REQUIRED (test NO code = MDIFF)
--- NOTE | 2020-03-30 10:55 | ER ---
Nurse's Notes [facility] Name: Mango Grey Age: 64 yrs Sex: Male : 1955 Arrival Date: 03/30/2020 Time: 10:17 Bed 13 Private MD: Diagnosis: Abscess of bursa, ankle and foot;Type 2 diabetes mellitus;Osteomyelitis Presentation: 03/30 10:20 Chief complaint: Patient states: Wound to right ankle x 1 week "Being a paraplegic I jl7 can't feel it but I know it hurts.". Coronavirus screen: Client denies travel out of the [place] in the last 14 days. At this time, the client does not indicate any symptoms associated with coronavirus-19. Ebola Screen: No symptoms or risks identified at this time. Initial Sepsis Screen: Does the patient meet any 2 criteria? No. Patient's initial sepsis screen is negative. Does the patient have a suspected source of infection? No. Patient's initial sepsis screen is negative. Risk Assessment: Do you want to hurt yourself or someone else? Patient reports no desire to harm self or others. Onset of symptoms was March 23, 2020. 10:20 Method Of Arrival: Wheelchair jl7 10:20 Acuity: KATHIE 3 jl7 Triage Assessment: 10:25 General: Appears in no apparent distress. uncomfortable, Behavior is calm, cooperative, jl7 appropriate for age. Pain: Denies pain. Historical: - Allergies: 11:26 Vancomycin; Karen syndrome; jl7 - Home Meds: 10:25 metoprolol tartrate 50 mg oral tab [Active]; clonidine HCl 0.2 mg oral tab [Active]; jl7 amlodipine 5 mg oral tab [Active]; lisinopril 20 mg oral tab [Active]; gabapentin 300 mg oral cap 1 cap 3 times per day [Active]; - PMHx: 10:23 Diabetes - NIDDM; Hypertension; osteomyelitis ankle; T10 paraplegic; jl7 - Immunization history:: Adult Immunizations. - Social history:: Smoking status: Patient denies any tobacco usage or history of. - Family history:: not pertinent. Screenin:30 Abuse screen: Denies threats or abuse. Denies injuries from another. Nutritional bp screening: No deficits noted. Tuberculosis screening: No symptoms or risk factors identified. Fall Risk None identified. Assessment: 10:35 General: SEE TRIAGE NOTE. bp 11:35 Reassessment: ABX INFUSING. PT STATES ALLERGY TO MD BRIDGET INFORMED. bp 12:30 Reassessment: Patient appears in no apparent distress at this time. No changes from ca1 previously documented assessment. Patient and/or family updated on plan of care and expected duration. Pain level reassessed. Vital Signs: 10:20 BP 142 / 78; Pulse 81; Resp 17; Temp 97.7; Pulse Ox 99% ; Weight 113.4 kg; jl7 11:34 BP 114 / 53; Pulse 64; Resp 16; Pulse Ox 99% ; bp 12:30 BP 130 / 68; Pulse 62; Resp 16 S; Pulse Ox 100% on R/A; ca1 13:59 BP 119 / 69; Pulse 61; Resp 17; Pulse Ox 10% ; bp ED Course: 10:17 Patient arrived in ED. as 10:22 Triage completed. jl7 10:25 Arm band placed on right wrist. jl7 10:30 Patient has correct armband on for positive identification. Bed in low position. Call bp light in reach. Side rails up X2. 10:31 Gallito Posadas MD is Attending Physician. inder 10:49 Chidi Pan, DIAN is Primary Nurse. bp 10:53 Joshua Islas DO is Hospitalizing Provider. inder 11:10 Inserted saline lock: 20 gauge in right forearm, using aseptic technique. Blood bp collected. 12:33 No provider procedures requiring assistance completed. Patient admitted, IV remains in ca1 place. Administered Medications: 11:10 Drug: NS 0.9% 1000 ml Route: IV; Rate: 125 ml/hr; Site: right forearm; bp 12:33 Follow up: Response: No adverse reaction; IV Status: Infusion continued upon admission ca1 11:10 Drug: NS 0.9% 500 ml Route: IV; Rate: bolus; Site: right forearm; bp 12:18 Follow up: IV Status: Completed infusion; IV Intake: 500ml bp 11:10 Drug: Zosyn 3.375 grams Route: IVPB; Infused Over: 60 mins; Site: right forearm; bp 12:18 Follow up: IV Status: Completed infusion; IV Intake: 100ml bp 11:33 Not Given (Other Intervention Used): vancoMYCIN 1 grams IVPB once over 2 hrs bp 12:00 Drug: levofloxacin 500 mg Volume: 100 ml; Route: IVPB; Infused Over: 60 mins; Site: bp right forearm; Intake: 12:18 IV: 100ml; Total: 100ml. bp 12:18 IV: 500ml; Total: 600ml. bp Outcome: 10:54 Decision to Hospitalize by Provider. inder 13:50 Admitted to Med/surg accompanied by tech, via wheelchair, room 211, with chart, Report bp called to TALON BIGGS 13:50 Condition: stable 13:50 Instructed on discharge instructions, follow up and referral plans. Demonstrated understanding of 14:27 Patient left the ED. bp Signatures: Gallito Posadas MD MD cha Martinez, Amelia as Leal, Jahala RN RN jl7 Chidi Pan RN RN bp Susannah Gardner RN RN ca1 Corrections: (The following items were deleted from the chart) 11:26 10:23 Allergies: No Known Allergies; jesse jl7
--- NOTE | 2020-03-30 10:56 | EDPHYS ---
Physician Documentation [facility] Name: Mango Grey Age: 64 yrs Sex: Male : 1955 Arrival Date: 03/30/2020 Time: 10:17 Bed 13 Private MD: ED Physician Gallito Posadas HPI: 03/30 10:48 This 64 yrs old Male presents to ER via Wheelchair with complaints of Wound inder Check. 10:48 Patient presents to ED for recheck of: abscess, cellulitis. The affected area is on the inder right ankle. Previous treatment: Treatment type: The patient's original treatment included packing. The patient has experienced similar episodes in the past, a few times. Historical: - Allergies: 11:26 Vancomycin; Karen syndrome; jl7 - Home Meds: 10:25 metoprolol tartrate 50 mg oral tab [Active]; clonidine HCl 0.2 mg oral tab [Active]; jl7 amlodipine 5 mg oral tab [Active]; lisinopril 20 mg oral tab [Active]; gabapentin 300 mg oral cap 1 cap 3 times per day [Active]; - PMHx: 10:23 Diabetes - NIDDM; Hypertension; osteomyelitis ankle; T10 paraplegic; jl7 - Immunization history:: Adult Immunizations. - Social history:: Smoking status: Patient denies any tobacco usage or history of. - Family history:: not pertinent. ROS: 10:48 Constitutional: Negative for fever, chills, and weight loss, Eyes: Negative for injury, inder pain, redness, and discharge, ENT: Negative for injury, pain, and discharge, Neck: Negative for injury, pain, and swelling, Cardiovascular: Negative for chest pain, palpitations, and edema, Respiratory: Negative for shortness of breath, cough, wheezing, and pleuritic chest pain, Abdomen/GI: Negative for abdominal pain, nausea, vomiting, diarrhea, and constipation, Back: Negative for injury and pain, : Negative for injury, bleeding, discharge, and swelling, Skin: Negative for injury, rash, and discoloration, Neuro: Negative for headache, weakness, numbness, tingling, and seizure, Psych: Negative for depression, anxiety, suicide ideation, homicidal ideation, and hallucinations, Allergy/Immunology: Negative for hives, rash, and allergies, Endocrine: Negative for neck swelling, polydipsia, polyuria, polyphagia, and marked weight changes, Hematologic/Lymphatic: Negative for swollen nodes, abnormal bleeding, and unusual bruising. 10:48 MS/extremity: Positive for decreased range of motion, erythema, pain, swelling, tenderness, of the right ankle. Exam: 10:48 Constitutional: This is a well developed, well nourished patient who is awake, alert, inder and in no acute distress. Head/Face: Normocephalic, atraumatic. Eyes: Pupils equal round and reactive to light, extra-ocular motions intact. Lids and lashes normal. Conjunctiva and sclera are non-icteric and not injected. Cornea within normal limits. Periorbital areas with no swelling, redness, or edema. ENT: Nares patent. No nasal discharge, no septal abnormalities noted. Tympanic membranes are normal and external auditory canals are clear. Oropharynx with no redness, swelling, or masses, exudates, or evidence of obstruction, uvula midline. Mucous membranes moist. Neck: Trachea midline, no thyromegaly or masses palpated, and no cervical lymphadenopathy. Supple, full range of motion without nuchal rigidity, or vertebral point tenderness. No Meningismus. Chest/axilla: Normal chest wall appearance and motion. Nontender with no deformity. No lesions are appreciated. Cardiovascular: Regular rate and rhythm with a normal S1 and S2. No gallops, murmurs, or rubs. Normal PMI, no JVD. No pulse deficits. Respiratory: Lungs have equal breath sounds bilaterally, clear to auscultation and percussion. No rales, rhonchi or wheezes noted. No increased work of breathing, no retractions or nasal flaring. Abdomen/GI: Soft, non-tender, with normal bowel sounds. No distension or tympany. No guarding or rebound. No evidence of tenderness throughout. Back: No spinal tenderness. No costovertebral tenderness. Full range of motion. Male : Normal genitalia with no discharge or lesions. Skin: Warm, dry with normal turgor. Normal color with no rashes, no lesions, and no evidence of cellulitis. Neuro: Awake and alert, GCS 15, oriented to person, place, time, and situation. Cranial nerves II-XII grossly intact. Motor strength 5/5 in all extremities. Sensory grossly intact. Cerebellar exam normal. Normal gait. Psych: Awake, alert, with orientation to person, place and time. Behavior, mood, and affect are within normal limits. 10:48 Musculoskeletal/extremity: Extremities: noted in the right ankle: decreased ROM, pain, ROM: full active range of motion, in the right ankle, Circulation is intact in all extremities. decreased sensation, Compartment Syndrome exam of affected extremity: is normal. DVT Exam: negative Homans' sign noted on exam, no appreciated bluish discoloration, pain, swelling, tenderness, erythema, increased warmth. 11:13 ECG was reviewed by the Attending Physician. inder Vital Signs: 10:20 BP 142 / 78; Pulse 81; Resp 17; Temp 97.7; Pulse Ox 99% ; Weight 113.4 kg; jl7 11:34 BP 114 / 53; Pulse 64; Resp 16; Pulse Ox 99% ; bp 12:30 BP 130 / 68; Pulse 62; Resp 16 S; Pulse Ox 100% on R/A; ca1 13:59 BP 119 / 69; Pulse 61; Resp 17; Pulse Ox 10% ; bp MDM: 10:31 Patient medically screened. inder 10:51 Differential diagnosis: cellulitis. Data reviewed: vital signs, nurses notes, lab test [facility] result(s), EKG, radiologic studies, plain films. Data interpreted: monitoring specialist: rate is 81 beats/min, rhythm is regular, Pulse oximetry: is not applicable for this patient encounter. Test interpretation: by ED physician or midlevel provider: ECG, plain radiologic studies. Counseling: I had a detailed discussion with the patient and/or guardian regarding: the historical points, exam findings, and any diagnostic results supporting the discharge/admit diagnosis, lab results, radiology results, the need for further work-up and treatment in the hospital. Other consultation: dr ruiz involved. ED course: wound cultures, wound lenora, iv abx, to dr ding, consult dr ruiz. 03/30 10:47 Order name: Basic Metabolic Panel 03/30 10:47 Order name: CBC with Diff [facility] 03/30 10:47 Order name: LFT's 03/30 10:47 Order name: Magnesium [facility] 03/30 10:47 Order name: NT PRO-BNP inder 03/30 10:47 Order name: Troponin (emerg Dept Use Only) [facility] 03/30 10:47 Order name: Sed Rate 03/30 10:47 Order name: Wound Culture [facility] 03/30 11:31 Order name: CBC with Automated Diff; Complete Time: 12:08 [facility] 03/30 11:45 Order name: Basic Metabolic Panel; Complete Time: 12:08 [facility] 03/30 11:45 Order name: Liver (Hepatic) Function; Complete Time: 12:08 [facility] 03/30 11:45 Order name: Troponin (Emerg Dept Use Only); Complete Time: 12:08 [facility] 03/30 11:45 Order name: NT PRO-BNP; Complete Time: 12:08 [facility] 03/30 11:45 Order name: Magnesium; Complete Time: 12:08 [facility] 03/30 10:47 Order name: XRAY Chest (1 view) [facility] 03/30 10:47 Order name: EKG; Complete Time: 10:48 [facility] 03/30 10:47 Order name: Cardiac monitoring; Complete Time: 10:52 [facility] 03/30 10:47 Order name: EKG - Nurse/Tech; Complete Time: 11:12 [facility] 03/30 10:47 Order name: IV Saline Lock; Complete Time: 11:12 [facility] 03/30 10:47 Order name: Labs collected and sent; Complete Time: 11:12 [facility] 03/30 10:47 Order name: O2 Per Protocol; Complete Time: 10:52 [facility] 03/30 10:47 Order name: Ankle Right 2 View XRAY [facility] 03/30 12:03 Order name: Sedimentation Rate, Westergren; Complete Time: 12:08 [facility] 03/30 12:06 Order name: RAD; Complete Time: 12:08 [facility] 03/30 12:08 Order name: RAD [facility] 03/30 10:47 Order name: O2 Sat Monitoring; Complete Time: 10:51 [facility] 03/30 10:47 Order name: Wound dressing; Complete Time: 12:18 [facility] EC:13 Rate is 65 beats/min. Rhythm is regular. QRS [place] is Normal. ID interval is normal. QRS inder interval is normal. QT interval is normal. No Q waves. T waves are Normal. No ST changes noted. Clinical impression: Normal ECG and No evidence of ischemia. Interpreted by me. Reviewed by me. Administered Medications: 11:10 Drug: NS 0.9% 1000 ml Route: IV; Rate: 125 ml/hr; Site: right forearm; bp 12:33 Follow up: Response: No adverse reaction; IV Status: Infusion continued upon admission ca1 11:10 Drug: NS 0.9% 500 ml Route: IV; Rate: bolus; Site: right forearm; bp 12:18 Follow up: IV Status: Completed infusion; IV Intake: 500ml bp 11:10 Drug: Zosyn 3.375 grams Route: IVPB; Infused Over: 60 mins; Site: right forearm; bp 12:18 Follow up: IV Status: Completed infusion; IV Intake: 100ml bp 11:33 Not Given (Other Intervention Used): vancoMYCIN 1 grams IVPB once over 2 hrs bp 12:00 Drug: levofloxacin 500 mg Volume: 100 ml; Route: IVPB; Infused Over: 60 mins; Site: bp right forearm; Disposition: 03/30/20 10:54 Hospitalization ordered by Joshua Ding for Inpatient Admission. Preliminary diagnosis are Abscess of bursa, ankle and foot, Type 2 diabetes mellitus, Osteomyelitis. - Bed requested for Telemetry/MedSurg (Inpatient). - Status is Inpatient Admission. bp - Condition is Stable. - Problem is new. - Symptoms have improved. Signatures: Dispatcher [employer] EDPR Albertina Parnell RN RN Gallito Caro MD MD cha Leal, Jahala, RN RN Chidi Cabrera RN RN bp Acob, Cheryl RN ca1 Corrections: (The following items were deleted from the chart) 11:26 10:23 Allergies: No Known Allergies; jesse jl7 13:19 10:54 Hospitalization Ordered by Joshua Ding DO for Inpatient Admission. Preliminary diagnosis is Abscess of bursa, ankle and foot; Type 2 diabetes mellitus; Osteomyelitis. Bed requested for Telemetry/MedSurg (Inpatient). Status is Inpatient Admission. Condition is Stable. Problem is new. Symptoms have improved. inder 14:27 13:19 03/30/2020 10:54 Hospitalization Ordered by Joshua Ding DO for Inpatient bp Admission. Preliminary diagnosis is Abscess of bursa, ankle and foot; Type 2 diabetes mellitus; Osteomyelitis. Bed requested for Telemetry/MedSurg (Inpatient). Status is Inpatient Admission. Condition is Stable. Problem is new. Symptoms have improved. dw
[2020-03-30] MEDS ORDERED: VANCOMYCIN/NS 1 gm 1 GM/250 ML BAG IV ONE (11:15)
[2020-03-30] MEDS ORDERED: NA CHLORIDE 0.9% 1,000 ML ONE (11:16)
[2020-03-30] MEDS ORDERED: PIPER/TAZO/NS 3.375gm 3.375 GM/100 ML BAG ONE (11:17)
[2020-03-30 11:30] LABS: Absolute Lymphocytes (CBC) 1.1 K/uL (0.7-4.9); Basophils % 0.6 % (0-1.3); Hematocrit 33.4 % (39.6-49.0); Lymphocytes % 9.2 % (15.3-44.8); MPV 9.2 fL (7.6-11.3); RBC Red Blood Cell Count 3.68 M/uL (4.33-5.43)
[2020-03-30 11:45] LABS: ALT/SGPT 21 U/L (12-78); AST/SGOT 12 U/L (15-37); Albumin 3.3 g/dL (3.4-5.0); Alkaline Phosphatase 86 U/L (45-117); BUN Blood Urea Nitrogen 20 mg/dL (7-18); Bicarbonate 27 mmol/L (21-32); Bilirubin Direct 0.1 mg/dL (0-0.2); Bilirubin Total 0.5 mg/dL (0.2-1.0); Glucose Level 137 mg/dL (74-106); Magnesium 1.8 mg/dL (1.8-2.4); NT PRO-BNP 309 pg/mL (<125); Potassium 3.7 mmol/L (3.5-5.1); Protein, Total 7.6 g/dL (6.4-8.2); Sodium Level 138 mmol/L (136-145); Troponin (Emerg Dept Use Only) < 0.02 ng/mL (0.0-0.045)
--- NOTE | 2020-03-30 12:06 | RAD REPORT ---
EXAM DESCRIPTION: RAD - Chest Single View - 03/30/2020 11:49 am CLINICAL HISTORY: Cough;Dyspnea COMPARISON: August 2018 TECHNIQUE: AP portable chest image was obtained 03/30/2020 11:49 am . FINDINGS: Lung volumes are low which accentuates heart, vasculature and lung markings. Chest finding s are further accentuated by large body habitus and portable technique. PICC line has been removed since the comparison. Surgical hardware is present along the thoracic spin e. No peripheral mass or consolidation identifiable. Mild edema or interstitial infiltrate can be masked by the exam limitations. Heart and vasculature are normal. No measurable pleural effusion and no pneumothorax. No acute bony abnormality seen. No acute aortic findings suspected. IMPRESSION: Limited portable study without peripheral mass or consolidation. Mild interstitial edema or infiltrate could be masked by the exam limitations.
--- NOTE | 2020-03-30 12:07 | RAD REPORT ---
EXAM DESCRIPTION: RAD - Ankle Right 2 View - 03/30/2020 11:52 am CLINICAL HISTORY: Pain;Swelling COMPARISON: MRI Ankle Right Wo Cont dated 05/30/2018 FINDINGS: No fracture, dislocation or periosteal reaction. No joint effusion seen. No joint space na rrowing. Early osteopenic changes are suspected. Patient has prominent lateral and posterior soft tissue swelling. No air, calcification or foreign diana dy seen in the soft tissues. IMPRESSION: Prominent ankle soft tissue swelling without air, calcification or foreign body. No acute bone or joint finding.
[2020-03-30] MEDS ORDERED: Levofloxacin500mg IV 500 MG/100 ML BAG IV ONE (12:16)
--- NOTE | 2020-03-30 13:29 | P.HP ---
Certification for Inpatient Patient admitted to: Observation With expected LOS: <2 Midnights Patient will require the following post-hospital care: None Practitioner: I am a practitioner with admitting privileges, knowledge of patient current condition, hospital course, and medical plan of care. Services: Services provided to patient in accordance with Admission requirements found in Title 42 Section 412.3 of the Code of Federal Regulations Patient History Date of Service: 03/30/20 Primary Care Provider: Dr. Vargas; Surgery-Dr. Greer Reason for admission: Recurrent right lateral ankle cellulitis History of Present Illness: 64-year-old male with history of T12 paraplegia, hypertension and diabetes mellitus type 2. Patient presents the emergency room with recurrent right lateral ankle cellulitis. Patient reports this all started after he had a boot placed to for his right lower extremity. It placed pressure to the right ankle region. This caused an infection requiring surgical debridement. He had been doing fine but over the past couple of days he noted a blister to the area. The blister ruptu red causing serous fluid. Patient denied any fever, chills. Wound was open to air. He came to the ER for further evaluation. In the ER patient evaluated. White count 11.8, hemoglobin 11.6. Neutrophil count 83. Sed rate elevated at 64. Sodium 138, potassium 3.7. B meds 20, creatinine 0.915 with a GFR 30. Glucose 137. Troponin unremarkable. X-ray shows no fracture. Patient admitted for further evaluation and treatment. When I saw patient ER, patient appeared comfortable. Patient reports a history of osteomyelitis to the right 5th toe in the past. Allergies No Known Allergies Allergy (Verified 03/23/18 09:36) Home medications list reviewed: Yes Home Medications: Atorvastatin Calcium [Lipitor*] 10 mg PO BEDTIME 10/21/14 Clonidine HCl [Catapres*] 0.2 mg PO BID 10/21/14 Metoprolol Tartrate [Lopressor] 50 mg PO BID 10/21/14 Amlodipine Besylate 1 tab PO [id number] 12/06/16 Lisinopril [Zestril] 1 tab PO [id number] 12/06/16 Ascorbic Acid [Vitamin C] 1 tab PO DAILY 01/12/18 Cyanocobalamin (Vitamin B-12) [Vitamin B12] 2,500 mcg PO DAILY 01/12/18 Glimepiride 1 mg PO DAILY 01/12/18 Pyridoxine HCl (Vitamin B6) [Vitamin B-6] 100 mg PO DAILY 01/12/18 Amoxicillin/Potassium Clav [Amox-Clav 500-125 mg Tablet] 1 each PO DAILY 03/23/18 - Past Medical/Surgical History Diabetic: Yes -: Diabetes mellitus type 2, diet controlled -: HTN -: T12 paraplegia -: History of osteomyelitis right 5th toe -: Spinal surgery 1995 -: Thyroid removed 10 yrs ago -: Right 5th toe amputation Psychosocial/ Personal History: Patient single. - Family History Father -: Heart disease Mother -: Cancer - Social History Smoking Status: Never smoker Alcohol use: Yes CD- Drugs: No Caffeine use: Yes Place of Residence: Home Review of Systems General: As per HPI Eyes: Unremarkable ENT: Unremarkable Respiratory: Unremarkable Cardiovascular: Unremarkable Gastrointestinal: Unremarkable Genitourinary: Unremarkable Musculoskeletal: As per HPI Integumentary: As per HPI Neurological: Unremarkable Lymphatics: Unremarkable Physical Examination - Physical Exam General: Alert, In no apparent distress, Oriented x3, Cooperative HEENT: Atraumatic, Normocephalic, PERRLA, Mucous membr. moist/pink Neck: Supple Respiratory: Clear to auscultation bilaterally, Normal air movement Cardiovascular: Normal pulses, Regular rate/rhythm Gastrointestinal: Normal bowel sounds, No masses, No rebound, No guarding Integumentary: Other (Right lateral ankle erythema and swelling noted. Large quarter size ulcer noted to the lateral malleolus. Mild exudate noted. Compression wrap pain to the lower extremities bilateral.) Neurological: Normal speech, Abnormal strength (Patient with history of T12 paraplegia. Patient uses wheelchair to maneuver round.) - Studies Laboratory Data (last 24 hrs) 03/30/20 11:10: WBC 11.8 H, Hgb 11.6 L, Hct 33.4 L, Plt Count 274 03/30/20 11:10: Sodium 138, Potassium 3.7, BUN 20 H, Creatinine 0.95, Glucose 137 H, Magnesium 1.8, Total Bilirubin 0.5, AST 12 L, ALT 21, Alkaline Phosphatase 86 Assessment and Plan - Plan Impression: Right recurrent lateral ankle cellulitis with ulcer Diabetes mellitus type 2, diet controlled Hypertension T12 Paraplegia Chronic lower extremity lymphedema Plan: Right recurrent lateral ankle cellulitis with ulcer: Patient will be admitted for further evaluation and treatment. Will start IV antibiotic therapy-Levaquin for broad-spectrum coverage. Patient not able to tolerate vancomycin due to history of red man syndrome. Will consult surgery who has seen the patient as an outpatient. Patient will likely require debridement. Will keep the patient NPO after midnight. Will place a Espnioza catheter in preparation for this. Will continue monitor closely. Await recommendations by surgery. Will consider IV antibiotic therapy and infectious disease consultation after surgical evaluation. Anticipate improvement over the next 24-48 hr. This may be prolonged if osteomyelitis is found. Diabetes mellitus type 2, diet controlled: Will provide sliding scale. Will check A1c. Hypertension: Restart home medications of metoprolol, clonidine, Norvasc, and lisinopril. T12 Paraplegia: Patient uses the wheelchair. Provide medication for pain. Restart gabapentin. Lymphedema lower extremities: Continue with lower extremity wrappings. Discharge Plan: Home Plan to discharge in: 48 Hours - Advance Directives Does patient have a Living Will: Yes Does patient have a Durable POA for Healthcare: Yes - Code Status/Comfort Care Code Status Assessed: Yes (Patient is full code) Time Spent Managing Pts Care (In Minutes): 55
[2020-03-30] MEDS ORDERED: ONDANSETRON 4 MG/2 ML VIAL IV PRN (14:16)
[2020-03-30] MEDS ORDERED: TRAMADOL HCL 50 MG TAB PO PRN (14:16)
[2020-03-30] MEDS ORDERED: ACETAMINOPHEN 500 MG TAB PO PRN (14:16)
[2020-03-30] MEDS ORDERED: Levofloxacin 750mg IV 750 MG/150 ML BAG IV SCH (15:00)
[2020-03-30] MEDS ORDERED: D50W 25 GM/50 ML SYRINGE/VIAL IV PRN (15:00)
[2020-03-30] MEDS ORDERED: GLUCAGON 1 MG/VIAL IM PRN (15:00)
[2020-03-30 15:10] VITALS: BMI 35.1
[2020-03-30] MEDS: GABAPENTIN 300 MG CAP PO SCH ×2 (15:34→21:00)
[2020-03-30] MEDS: ENOXAPARIN 40 MG/0.4 ML SQ SCH (15:34)
[2020-03-30 16:12] LABS: Urine Appearance CLOUDY; Urine Bilirubin NEGATIVE (NEG); Urine Blood NEGATIVE (NEG); Urine Color YELLOW; Urine Glucose NEGATIVE (NEG); Urine Microscopic Reflex ORDER UMIC; Urine Protein TRACE (NEG); Urine Specific Gravity >=1.030 (1.005-1.030); Urine Urobilinogen 0.2 mg/dL (0.2-1.0); Urine pH 5.5 (5.0-7.0)
[2020-03-30 16:20] LABS: Urine Bacteria <20 /HPF (NONE SEEN); Urine Culture Reflex Order REFLEXED; Urine Mucus 1+ /HPF (NONE SEEN); Urine RBC <5 /HPF (NONE SEEN)
[2020-03-30] MEDS: INSULIN -REGULAR HUMAN 50 UNIT/0.5 ML ML SQ SCH ×2 (16:30→20:20)
[2020-03-30] MEDS: cloNIDine HCL 0.1 MG TAB PO SCH (20:59)
[2020-03-30] MEDS: METOPROLOL TAR 50 MG TAB PO SCH (21:00)
[2020-03-30] MEDS ORDERED: POTASSIUM CL SA 10 MEQ TAB PO ONE (21:00)
[2020-03-30] MEDS ORDERED: MAGNESIUM SULFATE 1 gm IVPB 1 GM/100 ML BAG IV ONE (21:00)
[2020-03-30] MEDS ORDERED: NA CHLORIDE 0.9% 250 ML ONE (21:15)
[2020-03-31 06:03] LABS: Magnesium 2.2 mg/dL (1.8-2.4); Potassium 3.8 mmol/L (3.5-5.1)
[2020-03-31 06:04] LABS: Absolute Lymphocytes (CBC) 1.2 K/uL (0.7-4.9); Basophils % 0.5 % (0-1.3); Hematocrit 32.3 % (39.6-49.0); Lymphocytes % 12.6 % (15.3-44.8); MPV 8.9 fL (7.6-11.3); RBC Red Blood Cell Count 3.54 M/uL (4.33-5.43)
--- NOTE | 2020-03-31 07:02 | P.PN ---
Subjective Date of Service: 03/31/20 Primary Care Provider: Dr. Vargas; Surgery-Dr. Greer Chief Complaint: Recurrent right lateral ankle cellulitis Subjective: Improving, Doing well Physical Examination - Vital Signs Temperature: 97.6 F Blood Pressure: 137/63 Pulse: 80 Respirations: 18 Pulse Ox (%): 95 - Physical Exam General: Alert, In no apparent distress, Oriented x3, Cooperative HEENT: Atraumatic Neck: Supple Respiratory: Clear to auscultation bilaterally, Normal air movement Cardiovascular: Normal pulses, Regular rate/rhythm Gastrointestinal: Normal bowel sounds, Non-distended Integumentary: Other (Right foot swelling improved. Erythema also noted to be improved. Ulcer still present.) Neurological: Normal speech, Normal strength at 5/5 x4 extr, Normal tone, Normal affect - Studies Laboratory Data (last 24 hrs) 03/30/20 11:10: WBC 11.8 H, Hgb 11.6 L, Hct 33.4 L, Plt Count 274 03/30/20 11:10: Sodium 138, Potassium 3.7, BUN 20 H, Creatinine 0.95, Glucose 137 H, Magnesium 1.8, Total Bilirubin 0.5, AST 12 L, ALT 21, Alkaline Phosphatase 86 Medications List Reviewed: Yes Assessment & Plan Discharge Plan: Home Plan to discharge in: 24 Hours Physician Review Additional Text: Impression: Right recurrent lateral ankle cellulitis with ulcer Diabetes mellitus type 2, diet controlled Hypertension T12 Paraplegia Chronic lower extremity lymphedema Anemia of chronic disease Plan: Right recurrent lateral ankle cellulitis with ulcer: Continue IV antibiotic therapy-Levaquin. Continue DVT prophylaxis-Lovenox. Patient currently NPO in anticipation for surgery-irrigation debridement of ulcer. Surgery to evaluate and treat. Will consult infectious disease for further recommendations on antibiotic coverage. Depending on what is done by surgery will determine if the patient can be discharge as early as today or in the next 48 hr. Blood and wound culture obtained. Awaiting results. Will order MRI of the ankle region to rule out osteomyelitis as the patient has a history of this. Will continue to reassess. Await further recommendations by surgery and infectious disease. Depending on what is done by surgery and recommendations by infectious disease will determine if the patient can be discharge as early as today or in the next 48 hr. Will consult elementary school social worker as the patient will likely require home health, wound care and therapy at discharge. Diabetes mellitus type 2, diet controlled: Will provide sliding scale. Will check A1c. Hypertension: Continue home medications of metoprolol, clonidine, Norvasc, and lisinopril. T12 Paraplegia: Patient uses the wheelchair at home. Continue with medication for pain. Espinoza catheter in place in preparation for surgery. This can be discontinued after surgery. Patient self caths at home. Lymphedema lower extremities: Continue with lower extremity wrappings. Anemia of chronic disease: Will check iron and B12 studies. Time Spent Managing Pts Care (In Minutes): 55
[2020-03-31] MEDS: INSULIN -REGULAR HUMAN 50 UNIT/0.5 ML ML SQ SCH ×2 (07:30→11:30)
[2020-03-31] MEDS: cloNIDine HCL 0.1 MG TAB PO SCH (08:05)
[2020-03-31] MEDS: METOPROLOL TAR 50 MG TAB PO SCH (08:06)
[2020-03-31] MEDS: GABAPENTIN 300 MG CAP PO SCH ×2 (08:06→13:22)
[2020-03-31 08:33] LABS: Ferritin 350.7 ng/mL (26-388); Transferrin 162 mg/dL (200-360)
[2020-03-31] MEDS ORDERED: AMLODIPINE 5 MG TAB PO SCH (09:00)
[2020-03-31] MEDS ORDERED: PYRIDOXINE (VIT B6) 50 MG TAB PO SCH (09:00)
[2020-03-31] MEDS ORDERED: lisinopriL 20 MG TAB PO SCH (09:00)
[2020-03-31] MEDS ORDERED: POTASSIUM CL SA 10 MEQ TAB PO ONE (09:00)
[2020-03-31] MEDS ORDERED: ASCORBIC ACID 500 MG TABLET PO SCH (09:00)
[2020-03-31] MEDS ORDERED: CYANOCOBALAMIN 1,000 MCG TAB PO SCH ×2 (09:00)
--- NOTE | 2020-03-31 10:21 | P.CNS ---
Date of Consult: 03/31/20 Subjective: Patient is a 64-year-old male with history of T12 paraplegia and diabetes mellitus who presents to the ED with worsening right ankle wound. Patient has a history of osteomyelitis to his right foot 5th toe s/p amputation about one year ago. Patient was placed in a boot/brace on his right leg and noticed a wound to his right lateral ankle in August 2019. Patient has been seen by Dr. Greer in the [facility]. Patient noticed worsening of right heel wound roughly 2 weeks ago with blister formation which I have been consulted for. X-ray of right ankle not suggestive of osteomyelitis. - Past Medical/Surgical History Diabetic: Yes -: Diabetes mellitus type 2, diet controlled -: HTN -: T12 paraplegia -: History of osteomyelitis right 5th toe -: Spinal surgery 1995 -: Thyroid removed 10 yrs ago -: Right 5th toe amputation Psychosocial/ Personal History: Patient single. - Family History Father -: Heart disease Mother -: Cancer - Social History Smoking Status: Never smoker Alcohol use: Yes CD- Drugs: No Caffeine use: Yes Place of Residence: Home Allergies vancomycin Adverse Reaction (Verified 03/30/20 14:41) Hives/Rash Active Medications Acetaminophen (Tylenol -Extra Strength) 500 mg PO Q4HP PRN PRN Reason: TEMP > 101' F Stop: 04/29/20 14:17 Amlodipine Besylate (Norvasc) 5 mg PO DAILY [facility] Stop: 04/30/20 09:01 Last Admin: 03/31/20 08:07 Dose: 5 mg Documented by: Ascorbic Acid (Vitamin C) 500 mg PO DAILY [facility] Stop: 04/30/20 09:01 Last Admin: 03/31/20 08:06 Dose: 500 mg Documented by: Clonidine HCl (Catapres) 0.2 mg PO BID [facility] Stop: 04/29/20 21:01 Last Admin: 03/31/20 08:05 Dose: 0.2 mg Documented by: Cyanocobalamin (Vitamin B-12) 3,000 mcg PO DAILY [facility] Stop: 04/30/20 09:01 Last Admin: 03/31/20 08:07 Dose: 3,000 mcg Documented by: Dextrose (Dextrose 50% Syringe/Vial) 12.5 gm IV PRN PRN PRN Reason: HYPOGLYCEMIA PROTOCOL Stop: 04/29/20 15:01 Enoxaparin Sodium (Lovenox 40 Mg Inj) 40 mg SQ DAILY [facility] Stop: 04/29/20 15:01 Last Admin: 03/30/20 15:34 Dose: 40 mg Documented by: Gabapentin (Neurontin) 300 mg PO TID [facility] Stop: 04/29/20 14:37 Last Admin: 03/31/20 08:06 Dose: 300 mg Documented by: Glucagon (Glucagen) 1 mg IM 1X PRN PRN Reason: HYPOGLYCEMIA Stop: 04/29/20 15:01 Levofloxacin/Dextrose (Levaquin 750 Mg/150 Ml Ivpb (Premix)) 750 mg in 150 mls @ 100 mls/hr IV Q24H [facility]; Protocol Stop: 04/30/20 13:01 Insulin Human Regular (Novolin -R) 0 unit SQ ACHS [facility]; Protocol Stop: 04/29/20 16:31 Last Admin: 03/31/20 07:30 Dose: Not Given Documented by: Lisinopril (Prinivil) 20 mg PO DAILY [facility] Stop: 04/30/20 09:01 Last Admin: 03/31/20 08:06 Dose: 20 mg Documented by: Metoprolol Tartrate (Lopressor) 50 mg PO BID [facility] Stop: 04/29/20 21:01 Last Admin: 03/31/20 08:06 Dose: 50 mg Documented by: Ondansetron HCl (Zofran) 4 mg IV Q6HP PRN PRN Reason: NAUSEA / VOMITING Stop: 04/29/20 14:17 Pyridoxine HCl (Vitamin B-6) 100 mg PO DAILY [facility] Stop: 04/30/20 09:01 Last Admin: 03/31/20 08:06 Dose: 100 mg Documented by: Sodium Chloride (Normal Saline Flush) 10 ml IV BID [facility] Stop: 04/29/20 21:01 Last Admin: 03/31/20 08:07 Dose: 10 ml Documented by: Tramadol HCl (Ultram) 50 mg PO TID PRN PRN Reason: Pain scale 2-4 (Mild) Stop: 04/29/20 14:17 ROS: CV: Denies chest pain RESP: Denies dyspnea : Reports doing intermittent catheterization at home GI: Denies nausea and diarrhea MSK: Reports he is able to drive and take care of himself at home Objective: Temp Pulse Resp BP Pulse Ox 97.8 F 87 16 140/67 95 03/31/20 07:53 03/31/20 08:07 03/31/20 07:53 03/31/20 08:07 03/31/20 07:53 Labs: Sodium 139, potassium 3.8, BUN 17, creatinine 1.02, WBC 9.7, hemoglobin 11.1, hematocrit 32.3 EXAM DESCRIPTION: RAD - Ankle Right 2 View - 03/30/2020 11:52 am CLINICAL HISTORY: Pain;Swelling COMPARISON: MRI Ankle Right Wo Cont dated 05/30/2018 FINDINGS: No fracture, dislocation or periosteal reaction. No joint effusion seen. No joint space narrowing. Early osteopenic changes are suspected. Patient has prominent lateral and posterior soft tissue swelling. No air, calcification or foreign body seen in the soft tissues. IMPRESSION: Prominent ankle soft tissue swelling without air, calcification or foreign body. No acute bone or joint finding. ROS: General: Awake, alert, oriented, no acute distress CV: S1,S2 RESP: Good breath sounds ABD: nontender, bowel sounds present : Espinoza catheter Extremities: Paraplegic Skin: Right lateral ankle ulcer with large amount of slough, alayna area with maceration and bruising Assessment and plan: Leukocytosis resolved Right lateral ankle diabetic foot ulcer, possible I&D today, xray not suggestive of osteomyelitis, MRI to be done Levaquin day 2, continue, will reevaluate after surgical procedure and MRI results Blood cultures pending Urine cultures show no growth to date Diabetes mellitus, monitor glycemic control Will continue to monitor Thank you for consult Patient discussed with Dr. Segovia
--- NOTE | 2020-03-31 10:47 | EKG ---
Test Date: 2020-03-30 Test Time: 11:12:59 Chancery Clerk: LEEANNE MEASUREMENT RESULTS: Intervals: Rate: 65 AL: 124 QRSD: 88 QT: 360 QTc: 374 [place]: P: 34 AL: 124 QRS: 21 T: 4 INTERPRETIVE STATEMENTS: Normal sinus rhythm Normal ECG Compared to ECG 03/23/2018 10:36:09 Sinus bradycardia no longer present Electronically Signed On 03-31-20 10:45:01 CDT by Jesus Ta
[2020-03-31] MEDS ORDERED: FENTANYL CITR 100 MCG/2 ML ONE (11:14)
[2020-03-31] MEDS ORDERED: MIDAZOLAM HCL 2 MG/2 ML INJ ONE (11:14)
[2020-03-31] MEDS ORDERED: propofoL 200 MG/20 ML VIAL IV ONE (11:14)
[2020-03-31] MEDS ORDERED: LIDOCAINE 2% MPF 5 ML VIAL ONE (11:15)
[2020-03-31] MEDS ORDERED: NA CHLORIDE 0.9% 1,000 ML ONE (11:31)
[2020-03-31] MEDS ORDERED: ONDANSETRON 4 MG/2 ML VIAL ONE (12:29)
[2020-03-31] MEDS ORDERED: EPHEDRINE SULF 50 MG/ML VIAL ONE (12:32)
[2020-03-31 12:46] VITALS: TEMP 97.7; O2SAT 97
[2020-03-31] MEDS ORDERED: Levofloxacin 750mg IV 750 MG/150 ML BAG IV SCH (13:00)
--- NOTE | 2020-03-31 13:20 | CON ---
Date of Consultation: 03/31/2020 Reason For Service: Decubitus ulcer in the right foot malleolar region. History Of Present Illness: This is a case of a 64-year-old patient, known by us due to history of p araplegia, history of diabetes, being in wound healing center many times. He was healed not too long ago. Now, he believed he hit the area of the right malleolar region several days ago, developed a n ecrotic ulcer, diabetic ulcer present in that region with infection. The patient came to the ER, adm itted to the hospital. Surgical consult was obtained for debridement. He denies any dysuria, hemate mesis, hematochezia, melena. Denies any recent traveling out of the country. Denies any family memb er sick at home. Review of Systems: Ten points otherwise unremarkable. See H and P. Allergies: NONE. Medications: Include Lipitor, Lopressor, Zestril, Catapres. Social History: He does smoke. He does not drink alcohol. Family History: Includes heart disease. Past Surgical History: Surgeries include spinal surgery, right fifth toe amputation, thyroidectomy. Physical Examination: General: The patient is awake, alert. HEENT: Pupils anicteric. Neck: Supple. Chest: Clear. Abdomen: Soft and depressible. Extremities: The patient has a pressure ulcer stage IV, pressure diabetic ulcer stage IV in the righ t malleolar region and foot region area. There is some black necrotic tissue present, so we will hav e to remove that area to do a better definition of the staging. I am not sure if the bone is exposed or not. I have to clean that area to be able to tell. There is fluctuance present consistent with an abscess and necrotic tissue and cellulitis that will be cleaned. The dorsalis pedis pulses still bilateral present. Assessment: A 64-year-old patient with diabetic necrotic ulcer on the right malleolar region. The p atient will go for debridement. Benefits, alternatives, and risks including, but not limited to infe ction, bleeding, damage to adjacent structures, anesthesia complication, nonhealing wound, [place], and ev en . He also understands this may not relieve the symptoms. He will require wound care. He mi ght need more than one surgical intervention. He understood, signed a consent. BG/SABRINA Voice ID: [id number] Report ID: [id number]
[2020-03-31] MEDS: ENOXAPARIN 40 MG/0.4 ML SQ SCH (13:22)
[2020-03-31 13:25] VITALS: BP 118/56
--- NOTE | 2020-03-31 14:14 | P.DS ---
Admission Date: 03/30/20 Discharge Date: 03/31/20 Primary Care Provider: Dr. Vargas; Surgery-Dr. Greer Disposition: ROUTINE DISCHARGE Discharge Condition: GOOD Reason for Admission: Recurrent right lateral ankle cellulitis Consultations: Surgery-Dr. Greer Infectious Disease-Dr. Segovia Procedures: Xray: FINDINGS: No fracture, dislocation or periosteal reaction. No joint effusion seen. No joint space narrowing. Early osteopenic changes are suspected. Patient has prominent lateral and posterior soft tissue swelling. No air, calcification or foreign body seen in the soft tissues. IMPRESSION: Prominent ankle soft tissue swelling without air, calcification or foreign body. No acute bone or joint finding. Medical Problem List: Right recurrent lateral ankle cellulitis with ulcer status post irrigation and debridement, wound culture positive for Staph aureus Diabetes mellitus type 2, diet controlled Hypertension T12 Paraplegia Chronic lower extremity lymphedema Anemia of chronic disease Brief History of Present Illness: 64-year-old male with history of T12 paraplegia, hypertension and diabetes mellitus type 2. Patient presents the emergency room with recurrent right lateral ankle cellulitis. Patient reports this all started after he had a boot placed to for his right lower extremity. It placed pressure to the right ankle region. This caused an infection requiring surgical debridement. He had been doing fine but over the past couple of days he noted a blister to the area. The blister ruptured causing serous fluid. Patient denied any fever, chills. Wound was open to air. He came to the ER for further evaluation. In the ER patient evaluated. White count 11.8, hemoglobin 11.6. Neutrophil count 83. Sed rate elevated at 64. Sodium 138, potassium 3.7. B meds 20, creatinine 0.915 with a GFR 30. Glucose 137. Troponin unremarkable. X-ray shows no fracture. Patient admitted for further evaluation and treatment. When I saw patient ER, patient appeared comfortable. Patient reports a history of osteomyelitis to the right 5th toe in the past. Hospital Course: Patient presented with right recurrent lateral ankle cellulitis with ulcer. Patient with underlying T12 paraplegia. This started as a blister formation which ruptured. Patient was admitted for further evaluation and treatment. The patient received IV antibiotic therapy. Patient was seen by infectious disease and surgery. Surgical intervention was required. This included irrigation and debridement. The patient tolerated the procedure well. Wound culture was positive for Staph aureus. Patient stable for discharge. At discharge patient will continue with Augmentin 500 mg 1 pill twice daily for 10 days. Patient will continue with wound care as recommended by surgery along with santyl applied to area daily with wet-to-dry dressing. The patient will follow up with surgery at [facility] within 1 week to monitor his progress. No need for MRI at this time. If this continues to worsen MRI can be considered to rule out osteomyelitis. Case was discussed in detail with infectious disease and surgery who agree with above plan of care. Home health will be arranged prior to discharge. Patient with diabetes mellitus type 2. This is diet controlled. Hemoglobin A1c 6.8. At discharge he will continue with 2000 diabetic diet. Recommend to monitor blood sugar at least twice daily. Recommend to maintain blood sugar less than 140 fasting and less than 200 after meals. Recommend to recheck A1c in 3 months to monitors progress. If blood sugars remain elevated then the patient may require medication. This can be further addressed by his PCP. Patient with hypertension. This is remained stable. At discharge he will continue with metoprolol 50 mg 1 pill twice daily, clonidine 0.2 mg 1 pill twice daily, Norvasc 5 mg daily, and lisinopril 12 mg daily. Recommend to maintain blood pressure less than 150/80. Further adjustment can be done by his PCP. Patient with T12 paraplegia, lymphedema to the lower extremities and neuropathy. At discharge patient will continue with gabapentin 300 mg 1 pill 3 times a day. Patient also takes supplementation for vitamin B12, vitamin B6 and vitamin-C. Patient may continue with his medication. Patient will continue with lymphedema wrappings as previous. Vital Signs/Physical Exam: Temp Pulse Resp BP Pulse Ox 97.7 F 71 16 118/56 L 93 03/31/20 13:24 03/31/20 13:24 03/31/20 13:24 03/31/20 13:24 03/31/20 13:24 General: Alert, In no apparent distress, Oriented x3, Cooperative HEENT: Atraumatic Neck: Supple Respiratory: Clear to auscultation bilaterally, Normal air movement Cardiovascular: Normal pulses, Regular rate/rhythm Gastrointestinal: No tenderness, No masses, No rebound, No guarding Integumentary: Other (Right foot bandaged) Neurological: Other (T12 paraplegia) Laboratory Data at Discharge: WBC 9.7 K/uL (4.3-10.9) D 03/31/20 04:39 Hgb 11.1 g/dL (13.6-17.9) L 03/31/20 04:39 Hct 32.3 % (39.6-49.0) L 03/31/20 04:39 Plt Count 293 K/uL (152-406) 03/31/20 04:39 Sodium 139 mmol/L (136-145) 03/31/20 04:39 Potassium 3.8 mmol/L (3.5-5.1) 03/31/20 04:39 BUN 17 mg/dL (7-18) 03/31/20 04:39 Creatinine 1.02 mg/dL (0.55-1.3) 03/31/20 04:39 Glucose 155 mg/dL (74-106) H 03/31/20 04:39 Magnesium 2.2 mg/dL (1.8-2.4) 03/31/20 04:39 Total Bilirubin 0.5 mg/dL (0.2-1.0) 03/30/20 11:10 AST 12 U/L (15-37) L 03/30/20 11:10 ALT 21 U/L (12-78) 03/30/20 11:10 Alkaline Phosphatase 86 U/L (45-117) 03/30/20 11:10 Home Medications: Clonidine HCl [Catapres*] 0.2 mg PO BID 10/21/14 Metoprolol Tartrate [Lopressor] 50 mg PO BID 10/21/14 Amlodipine Besylate 1 tab PO DAILY 12/06/16 Lisinopril [Zestril] 1 tab PO DAILY 12/06/16 Ascorbic Acid [Vitamin C] 1 tab PO DAILY 01/12/18 Cyanocobalamin (Vitamin B-12) [Vitamin B12] 3,000 mcg PO DAILY 01/12/18 Pyridoxine HCl (Vitamin B6) [Vitamin B-6] 100 mg PO DAILY 01/12/18 Gabapentin 300 mg PO Q8H 03/30/20 Amoxicillin/Potassium Clav [Augmentin 500-125 Tablet] 1 each PO BID #20 tablet 03/31/20 Collagenase [Santyl Ointment] 10 appl TOP DAILY #1 tube 03/31/20 New Medications: Amoxicillin/Potassium Clav [Augmentin 500-125 Tablet] 1 each PO BID #20 tablet Collagenase [Santyl Ointment] 10 appl TOP DAILY #1 tube Patient Discharge Instructions: 1. Recommend follow up with PCP in 1 week to follow up this hospitalization. 2. Patient presented with right recurrent lateral ankle cellulitis with ulcer. Patient with underlying T12 paraplegia. This started as a blister formation which ruptured. Patient was admitted for further evaluation and treatment. The patient received IV antibiotic therapy. Patient was seen by infectious disease and surgery. Surgical intervention was required. This included irrigation and debridement. The patient tolerated the procedure well. Wound culture was positive for Staph aureus. Patient stable for discharge. At discharge patient will continue with Augmentin 500 mg 1 pill twice daily for 10 days. Patient will continue with wound care as recommended by surgery along with santyl applied to area daily with wet-to-dry dressing. The patient will follow up with surgery at [facility] within 1 week to monitor his progress. No need for MRI at this time. If this continues to worsen MRI can be considered to rule out osteomyelitis. Case was discussed in detail with infectious disease and surgery who agree with above plan of care. Home health will be arranged prior to discharge. 3. Patient with diabetes mellitus type 2. This is diet controlled. Hemoglobin A1c 6.8. At discharge he will continue with 2000 diabetic diet. Recommend to monitor blood sugar at least twice daily. Recommend to maintain blood sugar less than 140 fasting and less than 200 after meals. Recommend to recheck A1c in 3 months to monitors progress. If blood sugars remain elevated then the patient may require medication. This can be further addressed by his PCP. 4. Patient with hypertension. This is remained stable. At discharge he will continue with metoprolol 50 mg 1 pill twice daily, clonidine 0.2 mg 1 pill twice daily, Norvasc 5 mg daily, and lisinopril 12 mg daily. Recommend to maintain blood pressure less than 150/80. Further adjustment can be done by his PCP. 5. Patient with T12 paraplegia, lymphedema to the lower extremities and neuropathy. At discharge patient will continue with gabapentin 300 mg 1 pill 3 times a day. Patient also takes supplementation for vitamin B12, vitamin B6 and vitamin-C. Patient may continue with his medication. Patient will continue with lymphedema wrappings as previous. Diet: ADA Activity: Fall precautions Time spent managing pt's care (in minutes): 55
--- NOTE | 2020-03-31 21:10 | OP ---
Date of Procedure: 03/31/2020 Surgeon: Rc Greer MD Preoperative Diagnosis: Diabetic foot ulcer over the right foot at malleolar region. Postoperative Diagnosis: Diabetic foot ulcer over the right foot at malleolar region. Procedure: Wide excision with debridement of the right ankle and foot necrotic wound ulcer, about 6 x 3 x 1 cm. Anesthesia: General. Findings: The patient has this wound in that area. I can feel it. It goes down to tendon, moved in to the ankle anteriorly, into the foot inferiorly. Indications: It is a male known by us due to history of paraplegia with a diabetic ulcer infected on the right malleolar region. The debridement with benefits, alternatives, and risks including, but n ot limited to infection, bleeding, damage to adjacent structures, anesthesia complication, nonhealing wound, NH, and even . He also understood this may not relieve symptoms. He might need more th an one surgical intervention. He understood and signed a consent. Description Of Procedure: The area of concern was marked by me and the patient in the operating room . The patient was brought to the operating room and placed in supine position. Anesthesia was done without complication. Right foot was prepped and draped in a sterile fashion. We proceeded to do de bridement using an 11 blade and the more we go, we found some necrotic tissue between the tendons int o the malleolar area of the bone and then dissect anterior into the ankle region and also inferiorly into the foot ray area. All the necrotic tissue grossly was removed. Hemostasis obtained and the ar ea was packed with quarter of an inch iodoform. The patient tolerated the procedure well. The patient was sent to Recovery in stable condition. Sponge count and instrument c ount were correct. HM/MODL Voice ID: [id number] Report ID: [id number]
== END 2020-03-31 16:27 | disposition home or self-care (01) ==
LOC: ER 10:14 → ERHOLD 12:28 → 2ND 13:55
PROVIDERS: ADMIT Family Medicine; ATTEND Family Medicine
PROC: 0JBQ0ZZ Excision of Right Foot Subcutaneous Tissue and Fascia, Open Approach (ICD-10-PCS; principal; 2020-03-31 12:15)
DX: E11.621 Type 2 diabetes mellitus with foot ulcer (principal); L97.319 Non-pressure chronic ulcer of right ankle with unspecified severity; G82.20 Paraplegia, unspecified; I10 Essential (primary) hypertension; D63.8 Anemia in other chronic diseases classified elsewhere; I89.0 Lymphedema, not elsewhere classified; L03.115 Cellulitis of right lower limb; B95.61 Methicillin susceptible Staphylococcus aureus infection as the cause of diseases classified elsewhere; E11.40 Type 2 diabetes mellitus with diabetic neuropathy, unspecified; Z20.828 Contact with and (suspected) exposure to other viral communicable diseases; Z89.421 Acquired absence of other right toe(s)
CPT/HCPCS: 11043; 96365; 93005; 87040 ×2; 87088; 87070; 85025 ×2; 87086; 80048 ×2; 36415; 83735 ×2; 87205; 82947 ×4; 80076; 88304; 85652; 87077 ×2; 87186 ×2; 83036; 84484; 82728; 82607; 83540; 83880; 84466; 71045; 73600; 96375; 99285; U0002; J2704; J1650 ×2; J2250; J3010; J3475; J2543; G0378 ×4; J7050; J7030 ×2; J2405; 81003; 81015; J3370

== ENCOUNTER → 2022-06-15 | Day surgery (SDC) | payer OTHER ==
[~2022-06-15] MED LIST: ASPIRIN 325 MG TAB ONE; ATROPINE SULF 1 MG/10 ML SYR IV ONE; CLOPIDOGREL 75 MG TABLET ONE; FENTANYL CITR 100 MCG/2 ML ONE; HEPA 1000U/500MLS 1,000 UNIT/500 ML BAG IV ONE; HEPA 1000U/500MLS 2,000 UNIT/1,000 ML BAG IV ONE; HEPARIN 10,000 UNIT/10 ML VIAL IV ONE; MIDAZOLAM HCL 2 MG/2 ML INJ ONE; NA CHLORIDE 0.9% 500 ML ONE; NITROGLYCERIN 100 MCG/ML SYR (for cath lab use only) IV ONE; NITROGLYCERIN/D5W 25 MG/250 ML BTL IV ONE
[2022-06-15 07:35] LABS: Absolute Lymphocytes (CBC) 1.3 K/uL (0.7-4.9); Hematocrit 36.1 % (39.6-49.0); Lymphocytes % 18.4 % (15.3-44.8); MCV 88.4 fL (80-100); RBC Red Blood Cell Count 4.09 M/uL (4.33-5.43)
[2022-06-15 08:22] LABS: Potassium 4.2 mmol/L (3.5-5.1)
[2022-06-15 11:05] LABS: SARS-CoV-2 Antigen Rapid Res Negative (Negative)
--- NOTE | 2022-06-16 08:06 | EKG ---
Test Date: 2022-06-15 Test Time: 07:25:37 Loan Manager: POP MEASUREMENT RESULTS: Intervals: Rate: 57 GA: 134 QRSD: 96 QT: 400 QTc: 389 [place]: P: 36 GA: 134 QRS: 17 T: 28 INTERPRETIVE STATEMENTS: Sinus bradycardia Otherwise normal ECG Compared to ECG 12/14/2021 11:12:38 No significant changes Electronically Signed On 06-16-22 08:02:05 GUARD RANGE by Jesus Ta
== END ==
LOC: CCL 07:00
PROVIDERS: ATTEND Internal Medicine
PROC: 4A023N7 Measurement of Cardiac Sampling and Pressure, Left Heart, Percutaneous Approach (ICD-10-PCS; principal; 2022-06-15)
PROC: B2011ZZ Plain Radiography of Multiple Coronary Arteries using Low Osmolar Contrast (ICD-10-PCS; 2022-06-15)
PROC: B2051ZZ Plain Radiography of Left Heart using Low Osmolar Contrast (ICD-10-PCS; 2022-06-15)
DX: I25.10 Atherosclerotic heart disease of native coronary artery without angina pectoris (principal); I10 Essential (primary) hypertension; E78.5 Hyperlipidemia, unspecified; E11.9 Type 2 diabetes mellitus without complications; Z79.82 Long term (current) use of aspirin; Z79.84 Long term (current) use of oral hypoglycemic drugs; Z79.899 Other long term (current) drug therapy; Z88.1 Allergy status to other antibiotic agents; Z20.822 Contact with and (suspected) exposure to COVID-19; Z82.49 Family history of ischemic heart disease and other diseases of the circulatory system; Z83.3 Family history of diabetes mellitus
CPT/HCPCS: 36415; 76937; 80048; 80061; 85025; 85610; 85730; 87811; 93005; 93458; C1760; C1893; G0269; J0461; J1644; J2250; J3010; J7040; Q9966

== ENCOUNTER 2023-03-14 06:15 | Emergency (ER) | payer OTHER ==
[2023-03-14 07:59] LABS: Absolute Lymphocytes (CBC) 1.1 K/uL (0.7-4.9); Hematocrit 25.2 % (39.6-49.0); MCV 76.2 fL (80-100); MPV 8.1 fL (7.6-11.3); Platelets 293 thou/uL (152-406)
[2023-03-14 08:03] LABS: Protime INR 1.91
[2023-03-14 08:15] LABS: Albumin 3.5 g/dL (3.4-5.0); Bilirubin Total 0.3 mg/dL (0.2-1.0); Potassium 4.3 mEq/L (3.5-5.1); Protein, Total 6.8 g/dL (6.4-8.2)
--- NOTE | 2023-03-14 08:45 | ER ---
Nurse's Notes [facility] Name: Mango Grey Age: 67 yrs Sex: Male : 1955 Arrival Date: 03/14/2023 Time: 06:15 Bed 7 Private MD: Diagnosis: GI bleed, anemia Presentation: 03/14 06:41 Chief complaint: Patient states: "10 days ago my hemoglobin was 7.5 and I've been as6 having increased rectal bleeding and have been feeling weak and dizzy" pt does take blood thinners. Coronavirus screen: At this time, the client does not indicate any symptoms associated with coronavirus-19. Ebola Screen: No symptoms or risks identified at this time. Initial Sepsis Screen: Does the patient meet any 2 criteria? No. Patient's initial sepsis screen is negative. Does the patient have a suspected source of infection? No. Patient's initial sepsis screen is negative. Risk Assessment: Do you want to hurt yourself or someone else? Patient reports no desire to harm self or others. Onset of symptoms was March 04, 2023. 06:41 Acuity: KATHIE 3 as6 06:41 Method Of Arrival: Wheelchair as6 Historical: - Allergies: 06:41 Vancomycin; Karen syndrome; as6 - Home Meds: 08:22 Plavix Oral [Active]; Eliquis oral [Active]; mb9 - PMHx: 06:41 Diabetes - NIDDM; Hypertension; osteomyelitis ankle; T10 paraplegic; as6 - PSHx: 06:41 spinal cord; as6 06:45 triple bypass; as6 - Immunization history:: Client reports receiving the 2nd dose of the Covid vaccine, moderna. - Social history:: Smoking status: Patient denies any tobacco usage or history of. Patient uses alcohol, only on a social basis. Screenin:55 Abuse screen: Denies threats or abuse. Nutritional screening: No deficits noted. ap3 Tuberculosis screening: No symptoms or risk factors identified. Assessment: 07:53 General: Appears in no apparent distress. Behavior is calm, cooperative, appropriate ap3 for age. Pain: Unable to use pain scale. pt is a paraplegic. Neuro:. Cardiovascular: Patient's skin is warm and dry. Respiratory: Airway is patent Respiratory effort is even, unlabored, Respiratory pattern is regular, symmetrical. 08:43 Reassessment: No changes from previously documented assessment. Patient and/or family mb9 updated on plan of care and expected duration. Pain level reassessed. Patient is alert, oriented x 3, equal unlabored respirations, skin warm/dry/pink. Vital Signs: 06:41 BP 183 / 74; Pulse 66; Resp 18 S; Temp 98.2(O); Pulse Ox 100% on R/A; Weight 104.33 kg as6 (R); Height 5 ft. 11 in. (R); Pain 0/10; 08:00 BP 154 / 72; Pulse 55; Resp 16; Pulse Ox 100% on R/A; mb9 06:41 Body Mass Index 32.08 (104.33 kg, 180.34 cm) as6 06:41 Pain Scale: Adult as6 ED Course: 06:25 Patient arrived in ED. ag3 06:34 Chidi Pan, RN is Primary Nurse. bp 06:41 Arm band placed on. as6 06:45 Triage completed. as6 07:04 Zita Lu MD is Attending Physician. sp3 07:53 Initial lab(s) drawn, by tn, sent to lab. Inserted saline lock: 22 gauge in right ap3 antecubital area, using aseptic technique. Blood collected. 07:55 Patient has correct armband on for positive identification. Call light in reach. ap3 08:00 EKG done, by ED staff, reviewed by Zita Lu MD. mb9 08:43 No provider procedures requiring assistance completed. IV discontinued, intact, mb9 bleeding controlled, No redness/swelling at site. Pressure dressing applied. Administered Medications: No medications were administered Medication: 08:21 VIS not applicable for this client. mb9 Outcome: 08:44 Discharge ordered by . sp3 08:50 Discharged to home via wheelchair. mb9 08:50 Condition: stable 08:50 Discharge instructions given to patient, Instructed on discharge instructions, follow up and referral plans. Demonstrated understanding of instructions, follow-up care. 08:50 Patient left the ED. mb9 Signatures: Chidi Pan, RN RN bp Nati Bach RN RN ap3 Alexia Carr ag3 Zita Lu MD MD sp3 Natalio Hill RN RN as6 Breneman, Ann, RN RN mb9
--- NOTE | 2023-03-14 08:45 | EDPHYS ---
Physician Documentation [facility] Name: Mango Grey Age: 67 yrs Sex: Male : 1955 Arrival Date: 03/14/2023 Time: 06:15 Bed 7 Private MD: ED Physician Zita Lu HPI: 03/14 07:05 This 67 yrs old Male presents to ER via Wheelchair with complaints of Rectal Bleeding. sp3 07:19 This 67 yrs old Male presents to ER via Wheelchair with complaints of Rectal Bleeding. sp3 07:19 67-year-old male with history of diabetes, T10 paraplegic, hypertension, atrial sp3 fibrillation currently on Xarelto 20 mg nightly and recently off of Plavix presents to the ED with continued rectal bleeding for the last several days. Patient has had this problem off and on for the last several weeks for which his PCP took him off the Plavix due to a hemoglobin of 7.8. He states he now feels further weak and has had dizziness over the last 24 hours. He recently had a triple bypass and he is in atrial fibrillation off-and-on currently being evaluated for Watchman procedure. His last dose of Xarelto was yesterday p.m. He denies any headache, neck pain, other sites of bleeding, chest pain, shortness of breath, back pain however further pain below that is inconclusive secondary to his paraplegia. Review of systems otherwise negative.. Historical: - Allergies: 06:41 Vancomycin; Karen syndrome; as6 - Home Meds: 08:22 Plavix Oral [Active]; Eliquis oral [Active]; mb9 - PMHx: 06:41 Diabetes - NIDDM; Hypertension; osteomyelitis ankle; T10 paraplegic; as6 - PSHx: 06:41 spinal cord; as6 06:45 triple bypass; as6 - Immunization history:: Client reports receiving the 2nd dose of the Covid vaccine, moderna. - Social history:: Smoking status: Patient denies any tobacco usage or history of. Patient uses alcohol, only on a social basis. ROS: 07:20 Constitutional: Negative for fever, chills, and weight loss, Eyes: Negative for injury, sp3 pain, redness, and discharge, ENT: Negative for injury, pain, and discharge, Neck: Negative for injury, pain, and swelling, Cardiovascular: Negative for chest pain, palpitations, and edema, Respiratory: Negative for shortness of breath, cough, wheezing, and pleuritic chest pain, Back: Negative for injury and pain, MS/Extremity: Negative for injury and deformity, Skin: Negative for injury, rash, and discoloration, Neuro: Negative for headache, weakness, numbness, tingling, and seizure, Psych: Negative for depression, anxiety, suicide ideation, homicidal ideation, and hallucinations, Allergy/Immunology: Negative for hives, rash, and allergies, Endocrine: Negative for neck swelling, polydipsia, polyuria, polyphagia, and marked weight changes, Hematologic/Lymphatic: Negative for swollen nodes, abnormal bleeding, and unusual bruising. 07:20 All other systems are negative. Exam: 07:31 Constitutional: This is a well developed, well nourished patient who is awake, alert, sp3 and in no acute distress. Head/Face: Normocephalic, atraumatic. Eyes: Pupils equal round and reactive to light, extra-ocular motions intact. Lids and lashes normal. Conjunctiva and sclera are non-icteric and not injected. Cornea within normal limits. Periorbital areas with no swelling, redness, or edema. ENT: Nares patent. No nasal discharge, no septal abnormalities noted. External auditory canals are clear. Oropharynx with no redness, swelling, or masses, exudates, or evidence of obstruction, uvula midline. Mucous membranes moist. Neck: Trachea midline, no thyromegaly or masses palpated, and no cervical lymphadenopathy. Supple, full range of motion without nuchal rigidity, or vertebral point tenderness. No Meningismus. Chest/axilla: Normal chest wall appearance and motion. Nontender with no deformity. No lesions are appreciated. Cardiovascular: Regular rate and rhythm with a normal S1 and S2. No gallops, murmurs, or rubs. Normal PMI, no JVD. No pulse deficits. Respiratory: Lungs have equal breath sounds bilaterally, clear to auscultation and percussion. No rales, rhonchi or wheezes noted. No increased work of breathing, no retractions or nasal flaring. Abdomen/GI: Soft, non-tender, with normal bowel sounds. No distension or tympany. No guarding or rebound. No evidence of tenderness throughout. Back: No spinal tenderness. No costovertebral tenderness. Full range of motion. Skin: Warm, dry with normal turgor. Normal color with no rashes, no lesions, and no evidence of cellulitis. 07:31 Neuro: History and physical limited secondary to paraplegia.. 08:14 ECG was reviewed by the Attending Physician. EKG demonstrates sinus bradycardia at 53 sp3 bpm with normal axis, normal QRS, normal intervals, nonspecific diffuse ST/T changes without evidence of acute ischemia. Patient is not currently in atrial fibrillation. Vital Signs: 06:41 BP 183 / 74; Pulse 66; Resp 18 S; Temp 98.2(O); Pulse Ox 100% on R/A; Weight 104.33 kg as6 (R); Height 5 ft. 11 in. (R); Pain 0/10; 08:00 BP 154 / 72; Pulse 55; Resp 16; Pulse Ox 100% on R/A; mb9 06:41 Body Mass Index 32.08 (104.33 kg, 180.34 cm) as6 06:41 Pain Scale: Adult as6 MDM: 07:09 Patient medically screened. sp3 07:31 Data reviewed: vital signs, nurses notes, old medical records, lab test result(s), sp3 radiologic studies. ED course: 67-year-old male with GI bleeding. We will obtain repeat hemoglobin and administer blood products if required. We advised patient to hold Xarelto until he can be seen by his primary team. His neck scheduled colonoscopy is July and his GI physician is at [facility]. This will obviously need to be rescheduled however I believe that the anticoagulant is what is driving his bleeding episodes. His Watchman procedure will be johnson for the break and chain of events. As far as today goes, we will admit for supportive care until the large plan can be devised by his extended care team.. 08:42 ED course: Hemoglobin is stable at 8.1 from 7.8 several weeks ago. Patient is in sinus sp3 rhythm and I am not sure why he still on Xarelto. 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 Currently his risk of bleeding supersedes any risk of a paroxysmal A-fib event given the fact that he is in sinus rhythm at the moment. I have gone through the risks and benefit analysis with patient and he is in agreement with stopping the Xarelto for now. Patient will be safely discharged home at this time.. 03/14 07:09 Order name: CBC with Diff; Complete Time: 08:27 sp3 03/14 07:09 Order name: CMP; Complete Time: 08:27 sp3 03/14 07:09 Order name: Lipase; Complete Time: 08:27 sp3 03/14 07:09 Order name: PT-INR; Complete Time: 08:27 sp3 03/14 07:18 Order name: Type And Screen sp3 03/14 07:18 Order name: Troponin High Sensitivity; Complete Time: 08:27 sp3 03/14 07:18 Order name: EKG; Complete Time: 07:19 sp3 03/14 07:09 Order name: IV Saline Lock; Complete Time: 08:00 sp3 03/14 07:09 Order name: Labs collected and sent; Complete Time: 08:00 sp3 03/14 07:18 Order name: EKG - Nurse/Tech; Complete Time: 08:00 sp3 03/14 07:19 Order name: NPO; Complete Time: 08:00 sp3 Administered Medications: No medications were administered Disposition Summary: 03/14/23 08:44 Discharge Ordered Location: Home sp3 Condition: Stable sp3 Diagnosis - GI bleed, anemia sp3 Followup: sp3 - With: Private Physician - When: Upon discharge from the Emergency Department - Reason: Continuance of care Discharge Instructions: - Discharge Summary Sheet sp3 - Gastrointestinal Bleeding sp3 Forms: - Medication Reconciliation Form sp3 - Thank You Letter sp3 - Antibiotic Education sp3 - Prescription Opioid Use sp3 - Patient Portal Instructions sp3 - Leadership Thank You Letter sp3 Signatures: Dispatcher [employer] Zita Wise MD MD sp3 Natalio Hill RN RN as6 Alma Rosa De La Cruz RN RN mb9
[2023-03-14 09:16] VITALS: TEMP 98.2; O2SAT 100
[2023-03-14 09:42] VITALS: BP 154/72
--- NOTE | 2023-03-15 14:59 | EKG ---
Test Date: 2023-03-14 Test Time: 08:06:57 Piping Drafter: MB MEASUREMENT RESULTS: Intervals: Rate: 53 GA: 134 QRSD: 98 QT: 474 QTc: 444 [place]: P: 58 GA: 134 QRS: 26 T: 40 INTERPRETIVE STATEMENTS: Sinus bradycardia Otherwise normal ECG Compared to ECG 06/15/2022 07:25:37 No significant changes Electronically Signed On 03-15-23 14:55:10 CDT by Ti Alvarez
== END 2023-03-14 08:50 | disposition home or self-care (01) ==
LOC: ER 06:15
DX: D64.9 Anemia, unspecified (principal); E11.9 Type 2 diabetes mellitus without complications; I10 Essential (primary) hypertension; Z79.01 Long term (current) use of anticoagulants; Z95.1 Presence of aortocoronary bypass graft; Z88.3 Allergy status to other anti-infective agents
CPT/HCPCS: 36415; 80053; 83690; 84484; 85025; 85610; 86850; 86900; 86901; 93005; 99284

== ENCOUNTER 2023-07-14 08:04 | Inpatient (IN) | payer OTHER ==
[2023-07-14 09:09] LABS: Absolute Lymphocytes (CBC) 0.8 K/uL (0.7-4.9); Hematocrit 28.1 % (39.6-49.0); Lymphocytes % 14.6 % (15.3-44.8); MCV 86.3 fL (80-100); MPV 7.7 fL (7.6-11.3); Platelets 235 thou/uL (152-406); RBC Red Blood Cell Count 3.26 M/uL (4.33-5.43)
[2023-07-14 09:29] LABS: Albumin 3.1 g/dL (3.4-5.0); Bilirubin Direct 0.2 mg/dL (0-0.2); Bilirubin Indirect, Calculated 0.4 mg/dL (0.2-0.8); Bilirubin Total 0.6 mg/dL (0.2-1.0); Potassium 4.3 mEq/L (3.5-5.1); Protein, Total 6.1 g/dL (6.4-8.2); Troponin High Sensitivity 16.5 pg/mL (<58.9)
--- NOTE | 2023-07-14 09:34 | RAD REPORT ---
EXAM DESCRIPTION: RAD - Chest Single View - 07/14/2023 8:57 am CLINICAL HISTORY: DYSPNEA COMPARISON: Chest Pa And Lat (2 Views) dated 12/14/2021; Chest Single View dated 07/29/2021; Chest Sin gle View dated 03/30/2020; Chest Single View dated 08/07/2018 FINDINGS: Lines: None. Lungs: Hazy bilateral opacities with overall low lung volumes. Pleural: Blunting of the right costophrenic angle. Cardiac: Enlarged cardiac silhouette. Mediastinum: Within normal limits. Bones: No acute fractures. Fusion hardware in the spine . Remote rib fractures. Other: None IMPRESSION: Small right pleural effusion suspected could be related to mild edema. Low lung volumes with probable basilar atelectasis.
--- NOTE | 2023-07-14 09:36 | EDPHYS ---
Physician Documentation [facility] Name: Mango Grey Age: 67 yrs Sex: Male : 1955 Arrival Date: 07/14/2023 Time: 08:04 Bed 7 Private MD: Aly [facility] ED Physician Zita Lu HPI: 07/14 08:37 This 67 yrs old Male presents to ER via Wheelchair with complaints of Shortness Of sp3 Breath. 08:37 59-year-old male with history of hypertension, diabetes, T10 paraplegia now presents to [facility] the ED with chief complaint dyspnea on exertion that has been occurring for several weeks. He is scheduled for a cardiac stress test outpatient with Dr. Alvarez on Monday. Patient had cardiac bypass approximately 13 months ago. He denies any chest pain, shortness of breath at rest, back pain, fever, abdominal pain, other anginal equivalents, syncope, near syncope, focal neurological deficit, or any other signs or symptoms on ROS at this time.. Historical: - Allergies: 08:24 Vancomycin; Karen syndrome; ph - Home Meds: 08:24 gabapentin 300 mg Oral cap 1 cap 4 times a day [Active]; carvedilol 25 mg oral tablet 1 ph tab 2 times per day [Active]; baclofen 10 mg Oral tablet 2 times per day [Active]; amiodarone 200 mg Oral tablet 2 times per day [Active]; metformin 500 mg Oral tablet 2 times per day [Active]; atorvastatin 20 mg oral tablet daily [Active]; lisinopril 20 mg Oral tab daily [Active]; aspirin 81 mg oral tablet,chewable daily [Active]; - PMHx: 08:24 Diabetes - NIDDM; Hypertension; osteomyelitis ankle; T10 paraplegic; ph - PSHx: 08:24 spinal cord; triple bypass; ph - Immunization history:: Adult Immunizations up to date, Pneumococcal vaccine is up to date, Flu vaccine is up to date. - Social history:: Smoking status: Patient denies any tobacco usage or history of. ROS: 08:51 Constitutional: Negative for fever, chills, and weight loss, Eyes: Negative for injury, sp3 pain, redness, and discharge, ENT: Negative for injury, pain, and discharge, Neck: Negative for injury, pain, and swelling, Cardiovascular: Negative for chest pain, palpitations, and edema, Abdomen/GI: Negative for abdominal pain, nausea, vomiting, diarrhea, and constipation, Back: Negative for injury and pain, MS/Extremity: Negative for injury and deformity, Skin: Negative for injury, rash, and discoloration, Neuro: Negative for headache, weakness, numbness, tingling, and seizure, Psych: Negative for depression, anxiety, suicide ideation, homicidal ideation, and hallucinations, Allergy/Immunology: Negative for hives, rash, and allergies, Endocrine: Negative for neck swelling, polydipsia, polyuria, polyphagia, and marked weight changes, 08:51 All other systems are negative, Exam: 08:51 Constitutional: This is a well developed, well nourished patient who is awake, alert, sp3 and in no acute distress. Head/Face: Normocephalic, atraumatic. Eyes: Pupils equal round and reactive to light, extra-ocular motions intact. Lids and lashes normal. Conjunctiva and sclera are non-icteric and not injected. Cornea within normal limits. Periorbital areas with no swelling, redness, or edema. Neck: Trachea midline, no thyromegaly or masses palpated, and no cervical lymphadenopathy. Supple, full range of motion without nuchal rigidity, or vertebral point tenderness. No Meningismus. Chest/axilla: Normal chest wall appearance and motion. Nontender with no deformity. No lesions are appreciated. Cardiovascular: Regular rate and rhythm with a normal S1 and S2. No gallops, murmurs, or rubs. Normal PMI, no JVD. No pulse deficits. Respiratory: Lungs have equal breath sounds bilaterally, clear to auscultation and percussion. No rales, rhonchi or wheezes noted. No increased work of breathing, no retractions or nasal flaring. Abdomen/GI: Soft, non-tender, with normal bowel sounds. No distension or tympany. No guarding or rebound. No evidence of tenderness throughout. Back: No spinal tenderness. No costovertebral tenderness. Full range of motion. Skin: Warm, dry with normal turgor. Normal color with no rashes, no lesions, and no evidence of cellulitis. MS/ Extremity: Pulses equal, no cyanosis. Neurovascular intact. Full, normal range of motion. Neuro: Awake and alert, GCS 15, oriented to person, place, time, and situation. Cranial nerves II-XII grossly intact. Motor strength 5/5 in all extremities. Sensory grossly intact. Cerebellar exam normal. Normal gait. Psych: Awake, alert, with orientation to person, place and time. Behavior, mood, and affect are within normal limits. 08:51 Neuro: No abnormal neurological findings outside of baseline T10 paraplegia., 09:38 ECG was reviewed by the Attending Physician. EKG demonstrates normal sinus rhythm with sp3 first-degree AV block with a ME interval of 256, prominent R waves precordial lead and nonspecific diffuse ST's ST changes without evidence of acute ischemia. QTc is also noted to be 502. Vital Signs: 08:20 BP 148 / 83; Pulse 92; Resp 18; Temp 97.8; Pulse Ox 99% on R/A; Weight 104.33 kg; ph Height 5 ft. 11 in. ; Pain 0/10; 09:16 BP 134 / 76; Pulse 92; Resp 18; Pulse Ox 96% on R/A; ph 10:30 BP 151 / 87; Pulse 93; Resp 16; Pulse Ox 98% on R/A; ph 11:30 BP 134 / 89; Pulse 92; Resp 18; Temp 97.2; Pulse Ox 99% on R/A; ph 12:25 BP 141 / 91; Pulse 91; Resp 18; Temp 97.2; Pulse Ox 100% on R/A; ph 08:20 Body Mass Index 32.08 (104.33 kg, 180.34 cm) ph 08:20 Pain Scale: Adult ph MDM: 08:15 Patient medically screened. sp3 08:52 Data reviewed: vital signs, nurses notes, lab test result(s), EKG, radiologic studies. sp3 ED course: 67-year-old male with PMH above, T10 paraplegia who presents with dyspnea on exertion. Patient is resting comfortably in no acute distress. Vital signs are normal. Pulse ox 99% on room air. Patient already has a stress test scheduled for Monday. We will obtain laboratory values, chest x-ray, EKG and thoroughly evaluate patient. If workup is negative we will safely discharge him to continue outpatient stress test as scheduled. I am not highly suspicious for ongoing acute coronary syndrome, PE, pneumonia, vascular compromise including aortic pathology, or any other critical process at this time.. 09:33 ED course: BNP elevated to 3600. We will administer Lasix IV and admit patient for sp3 serial cardiac markers and cardiology consultation and probable stress test.. 07/14 08:31 Order name: Basic Metabolic Panel; Complete Time: 09:30 sp3 07/14 08:31 Order name: CBC with Diff; Complete Time: 09:30 sp3 07/14 08:31 Order name: LFT's; Complete Time: 09:30 sp3 07/14 08:31 Order name: NT PRO-BNP; Complete Time: 09:30 sp3 07/14 08:31 Order name: Troponin HS; Complete Time: 09:30 sp3 07/14 10:41 Order name: D-Dimer EDMS 07/14 10:41 Order name: Basic Metabolic Panel EDMS 07/14 10:41 Order name: Basic Metabolic Panel EDMS 07/14 10:41 Order name: Basic Metabolic Panel EDMS 07/14 10:41 Order name: Basic Metabolic Panel EDMS 07/14 10:41 Order name: Basic Metabolic Panel EDMS 07/14 10:41 Order name: Basic Metabolic Panel EDMS 07/14 10:41 Order name: CBC with Automated Diff EDMS 07/14 10:41 Order name: CBC with Automated Diff EDMS 07/14 10:41 Order name: CBC with Automated Diff EDMS 07/14 10:41 Order name: CBC with Automated Diff EDMS 07/14 10:41 Order name: CBC with Automated Diff EDMS 07/14 10:41 Order name: CBC with Automated Diff EDMS 07/14 10:41 Order name: Magnesium EDMS 07/14 10:41 Order name: Magnesium EDMS 07/14 10:41 Order name: Magnesium EDMS 07/14 10:41 Order name: Magnesium EDMS 07/14 10:41 Order name: Magnesium EDMS 07/14 10:41 Order name: Magnesium EDMS 07/14 10:41 Order name: Phosphorus EDMS 07/14 10:41 Order name: Phosphorus EDMS 07/14 10:41 Order name: Phosphorus EDMS 07/14 10:41 Order name: Phosphorus EDMS 07/14 10:41 Order name: Phosphorus EDMS 07/14 10:41 Order name: Phosphorus EDMS 07/14 10:41 Order name: Troponin High Sensitivity EDMS 07/14 10:41 Order name: Troponin High Sensitivity EDMS 07/14 10:41 Order name: Troponin High Sensitivity EDMS 07/14 08:31 Order name: XRAY Chest (1 view); Complete Time: 09:35 sp3 07/14 08:31 Order name: EKG; Complete Time: 08:31 sp3 07/14 08:31 Order name: Cardiac monitoring; Complete Time: 09:15 sp3 07/14 08:31 Order name: EKG - Nurse/Tech; Complete Time: 09:15 sp3 07/14 08:31 Order name: IV Saline Lock; Complete Time: 09:15 sp3 07/14 08:31 Order name: Labs collected and sent; Complete Time: 09:15 sp3 07/14 08:31 Order name: O2 Per Protocol; Complete Time: 09:15 sp3 07/14 08:31 Order name: O2 Sat Monitoring; Complete Time: 09:15 sp3 Administered Medications: 12:25 Drug: Furosemide IVP 40 mg IVP once; give over 2 minutes Route: IVP; Site: right wrist; ph Disposition Summary: 07/14/23 09:35 Hospitalization Ordered Notes: Hospitalization Status: Observation sp3 Provider: Kiana Lopez3 Location: Telemetry/[facility] (observation) sp3 Condition: Stable sp3 Problem: an acute exacerbation sp3 Symptoms: have worsened sp3 Bed/Room Type: Standard sp3 Room Assignment: [facility](07/14/23 10:49) Diagnosis - Dyspnea, CHF, anginal equivalent sp3 Forms: - Medication Reconciliation Form sp3 - SBAR form sp3 - Leadership Thank You Letter sp3 Signatures: Dispatcher [employer] Priyanka Bose RN RN Kathy Naylor Setul, MD MD sp3 Corrections: (The following items were deleted from the chart) 10:49 09:35 sp3 eb
--- NOTE | 2023-07-14 09:36 | ER ---
Nurse's Notes [facility] Name: Mango Grey Age: 67 yrs Sex: Male : 1955 Arrival Date: 07/14/2023 Time: 08:04 Bed 7 Private MD: Roby Lu Diagnosis: Dyspnea, CHF, anginal equivalent Presentation: 07/14 08:20 Chief complaint: Patient states: SOB that has been ongoing "for a while" and cough w/ ph exertion, denies fever or chest pain, no respiratory distress or tachypnea noted, Spo2 99% RA. Coronavirus screen: Vaccine status: Patient reports receiving the 2nd dose of the covid vaccine. Ebola Screen: No symptoms or risks identified at this time. Initial Sepsis Screen: Does the patient meet any 2 criteria? No. Patient's initial sepsis screen is negative. Does the patient have a suspected source of infection? No. Patient's initial sepsis screen is negative. Risk Assessment: Do you want to hurt yourself or someone else? Patient reports no desire to harm self or others. Onset of symptoms was July 14, 2023. 08:20 Method Of Arrival: Wheelchair ph 08:20 Acuity: KATHIE 3 ph Triage Assessment: 08:27 General: Appears in no apparent distress. Behavior is calm, cooperative, Denies fever, ph feeling ill. Pain: Denies pain. Neuro: Level of Consciousness is awake, alert, obeys commands, Oriented to person, place, time, situation. Cardiovascular: Reports shortness of breath, Denies chest pain, Capillary refill < 3 seconds in bilateral fingers Patient's skin is warm and dry. Respiratory: Reports shortness of breath on exertion Airway is patent Respiratory effort is even, unlabored, Respiratory pattern is regular, symmetrical, Onset: The symptoms/episode began/occurred gradually, the patient has mild shortness of breath. GI: No signs and/or symptoms were reported involving the gastrointestinal system. Derm: Skin is pink, warm \\T\\ dry. Historical: - Allergies: 08: Vancomycin; Karen syndrome; ph - Home Meds: 08:24 gabapentin 300 mg Oral cap 1 cap 4 times a day [Active]; carvedilol 25 mg oral tablet 1 ph tab 2 times per day [Active]; baclofen 10 mg Oral tablet 2 times per day [Active]; amiodarone 200 mg Oral tablet 2 times per day [Active]; metformin 500 mg Oral tablet 2 times per day [Active]; atorvastatin 20 mg oral tablet daily [Active]; lisinopril 20 mg Oral tab daily [Active]; aspirin 81 mg oral tablet,chewable daily [Active]; - PMHx: 08:24 Diabetes - NIDDM; Hypertension; osteomyelitis ankle; T10 paraplegic; ph - PSHx: 08:24 spinal cord; triple bypass; ph - Immunization history:: Adult Immunizations up to date, Pneumococcal vaccine is up to date, Flu vaccine is up to date. - Social history:: Smoking status: Patient denies any tobacco usage or history of. Screenin:[address] [facility] ED Fall Risk Assessment (Adult) History of falling in the last 3 months, ph including since admission No falls in past 3 months (0 pts) Confusion or Disorientation No (0 pts) Intoxicated or Sedated No (0 pts) Impaired Gait Yes (1 pt) Mobility Assist Device Used Yes (1 pt) Altered Elimination Yes (1 pt) Score/Fall Risk Level 3 or more points = High Risk Oriented to surroundings, Maintained a safe environment, Hourly rounding (assess needs \\T\\ fall precautionary measures) done. Abuse screen: Denies threats or abuse. Denies injuries from another. Nutritional screening: On. Tuberculosis screening: No symptoms or risk factors identified. Assessment: 09:16 General: SEE TRIAGE ASSESSMENT. ph 10:00 Reassessment: IV lasix ordered, pt to be admitted to hospital, pt currently in personal ph wheelchair at bedside, asked pt if he would like assistance into ER stretcher, pt states, " If you think I will get a bed upstairs I would rather wait until I get up there. The beds go down lower and I'm able to transfer over." Pt also stated that he self caths and will need a Espinoza catheter for diuresis, states, " That will probably need to wait until I get upstairs too." VSS, no tachypnea or respiratory distress noted, pt denies SOB, " I only get winded when I exert myself." Lasix held at this time. 11:35 Reassessment: Attempted to call report to second floor, no nurse assigned to pt yet, will call back. 12:05 Reassessment: Attempted to call report, nurse in pt's room will call back to receive ph report. 12:08 Reassessment: Report given to Manda BIGGS. ph Vital Signs: 08:20 BP 148 / 83; Pulse 92; Resp 18; Temp 97.8; Pulse Ox 99% on R/A; Weight 104.33 kg; ph Height 5 ft. 11 in. ; Pain 0/10; 09:16 BP 134 / 76; Pulse 92; Resp 18; Pulse Ox 96% on R/A; ph 10:30 BP 151 / 87; Pulse 93; Resp 16; Pulse Ox 98% on R/A; ph 11:30 BP 134 / 89; Pulse 92; Resp 18; Temp 97.2; Pulse Ox 99% on R/A; ph 12:25 BP 141 / 91; Pulse 91; Resp 18; Temp 97.2; Pulse Ox 100% on R/A; ph 08:20 Body Mass Index 32.08 (104.33 kg, 180.34 cm) ph 08:20 Pain Scale: Adult ph ED Course: 08:07 Patient arrived in ED. mr 08:07 Roby Lu, is Private Physician. mr 08:13 Zita Lu MD is Attending Physician. sp3 08:20 Priyanka Cherry, DIAN is Primary Nurse. ph 08:24 Triage completed. ph 08:27 Arm band placed on Patient placed in an exam room. ph 08:29 Patient has correct armband on for positive identification. Pulse ox on. NIBP on. ph 08:59 XRAY Chest (1 view) In Process Unspecified. EDMS 09:15 Initial lab(s) drawn, by me, sent to lab. EKG done, by ED staff, reviewed by Zita Lu MD. Inserted saline lock: 22 gauge in right wrist, using aseptic technique. Blood collected. 09:34 Kiana Lopez MD is Hospitalizing Provider. sp3 12:35 No provider procedures requiring assistance completed. Patient admitted, IV remains in ph place. Administered Medications: 12:25 Drug: Furosemide IVP 40 mg IVP once; give over 2 minutes Route: IVP; Site: right wrist; ph Medication: 08:29 VIS not applicable for this client. ph Outcome: 09:35 Decision to Hospitalize by Provider. sp3 12:35 Admitted to Tele accompanied by tech, via wheelchair, with chart, Report called to lynne Holman RN 12:35 Condition: good 12:35 Instructed on the need for admit, 12:40 Patient left the ED. iw Signatures: Dispatcher [employer] Alma Rosa Mcghee, Sherine Rios, RN Priyanka Hatch RN RN ph Patel, Setul, MD MD sp3
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
[2023-07-14] MEDS: INSULIN REGULAR (HUMAN) 100 UNIT/ML SQ SCH ×3 (11:30→21:00)
[2023-07-14] MEDS ORDERED: FUROSEMIDE 40 MG/4 ML VIAL ONE (12:26)
[2023-07-14] MEDS: GABAPENTIN 300 MG CAP PO SCH ×3 (14:05→20:31)
[2023-07-14 15:05] VITALS: BMI 32.1
[2023-07-14] MEDS: FUROSEMIDE 40 MG/4 ML VIAL IV SCH (16:22)
[2023-07-14] MEDS: HEPARIN 5000 UNIT/ML 1 ML VIAL SQ SCH (16:28)
[2023-07-14] MEDS: carvediloL 25 MG TAB PO SCH (17:52)
[2023-07-14] MEDS: ATORVASTATIN 20 MG TAB PO SCH (20:31)
[2023-07-14] MEDS: AMIODARONE HCL 200 MG TAB PO SCH (20:31)
[2023-07-14] MEDS: BACLOFEN 10 MG TAB PO SCH (20:31)
--- NOTE | 2023-07-14 20:32 | RAD REPORT ---
EXAM DESCRIPTION: CT - Chest For Pe Angio - 07/14/2023 8:21 pm CLINICAL HISTORY: Chest pain. Elevated D-dimer COMPARISON: <Comparisons> TECHNIQUE: CT angiogram of the pulmonary arteries was performed with MIP. All CT scans are performed using dose optimization technique as appropriate and may include automated exposure control or mA/KV adjustment according to patient size. FINDINGS: No evidence of pulmonary thromboembolism. No acute aortic finding demonstrated. Mild interstitial pulmonary edema. Moderate atelectasis suspected in the right lower lobe. Trace left pleural effusion. Small right pleural effusion. No concerning bony finding. Thyroid goiter, particularly in the right lobe. IMPRESSION: No evidence of pulmonary thromboembolism. Mild to moderate CHF pattern suspected.
[2023-07-15] MEDS: HEPARIN 5000 UNIT/ML 1 ML VIAL SQ SCH ×3 (00:53→16:24)
[2023-07-15 01:18] LABS: Absolute Lymphocytes (CBC) 1.4 K/uL (0.7-4.9); Hematocrit 29.3 % (39.6-49.0); Lymphocytes % 22.9 % (15.3-44.8); MCV 85.7 fL (80-100); MPV 8.1 fL (7.6-11.3); Platelets 257 thou/uL (152-406); RBC Red Blood Cell Count 3.42 M/uL (4.33-5.43)
[2023-07-15 01:38] LABS: Phosphorus 4.5 mg/dL (2.5-4.9); Potassium 3.8 mEq/L (3.5-5.1)
[2023-07-15] MEDS: carvediloL 25 MG TAB PO SCH ×2 (05:29→18:00)
[2023-07-15] MEDS: INSULIN REGULAR (HUMAN) 100 UNIT/ML SQ SCH ×4 (08:51→20:45)
[2023-07-15] MEDS: ASPIRIN EC 81 MG TAB PO SCH (08:52)
[2023-07-15] MEDS: GABAPENTIN 300 MG CAP PO SCH ×4 (08:52→21:03)
[2023-07-15] MEDS: BACLOFEN 10 MG TAB PO SCH ×2 (08:53→21:03)
[2023-07-15] MEDS: FUROSEMIDE 40 MG/4 ML VIAL IV SCH ×2 (09:00→16:24)
[2023-07-15] MEDS: lisinopriL 20 MG TAB PO SCH (09:00)
[2023-07-15] MEDS: AMIODARONE HCL 200 MG TAB PO SCH ×2 (09:51→21:03)
--- NOTE | 2023-07-15 16:47 | P.PN ---
Date of Service: 07/15/23 Subjective Sitting up in bed eating breakfast. No acute distress. No complaints of chest pain or heart palpitations, improved breathing He reports the injury to his right great toe which has a chronic nonhealing wound, he previously saw Dr. Greer in wound care but decided to care for it himself with hydrfera blue bacteriostatic foam and a Band-Aid. ROS 10 point ROS as noted above, otherwise negative Physical Exam General: AAO x3 , In no apparent distress, Conversent HEENT: Atraumatic, Normocephalic, PERRLA Neck: Supple, 2+ carotid pulse no bruit, JVD not distended Respiratory: Clear to auscultation bilaterally, Normal air movement Cardiovascular: No edema, Normal pulses, Regular rate/rhythm, Normal S1 S2 Capillary refill: <2 Seconds Gastrointestinal: Normal bowel sounds, Soft and benign Musculoskeletal: No clubbing, No swelling, No contractures Integumentary: Skin breakdown (chronic wound to right great toe), Rash to left samaritan Neurological: Normal speech, Normal strength at 5/5 x4 upper extr, Other (T10 paraplegic) Urinary: Zelaya catheter Vitals Reviewed Problem list Fluid volume overload 2/2 new onset CHF CAD s/p 3 vessel CABG Afib T10 paraplegic Diabetes mellitus type 2NIDDM Chronic non healing wound to right great toe HTN Assessment and Plan Fluid volume overload 2/2 new onset CHF CAD s/p 3 vessel CABG Afib D-dimer 1379, troponin 16.5/15.4/16.2, BNP 3679 CT chest angio reports no PE Lasix 40 mg BID with zelaya strict I and O- UOP 3325, daily weight-230 lbs Continue home medications-aspirin, statin, Coreg, amiodarone ECHO odered for Monday 07/17 T10 paraplegic Supportive care Decubitus prevention Continue home pain medications Self catheterizes at home, zelaya catheter this admission HTN continue home medication-Coreg, lisinopril monitor Q4h initial BP 148/83 105/57- held 1st dose of lasix and lisinopril Diabetes mellitus type 2NIDDM Serum glucose 121 He reports the last A1C of 6.1 Accu-Chek with sliding scale insulin Chronic non healing wound to right great toe- correction Consults wound care DVT PPx heparin Full code LOS 2 to 3 days Time Spent Managing Pts Care (In Minutes): 40
[2023-07-15] MEDS ORDERED: carvediloL 25 MG TAB PO ONE (20:00)
[2023-07-15] MEDS: ATORVASTATIN 20 MG TAB PO SCH (21:03)
[2023-07-16] MEDS: HEPARIN 5000 UNIT/ML 1 ML VIAL SQ SCH ×3 (00:03→17:53)
[2023-07-16 03:42] LABS: Absolute Lymphocytes (CBC) 1.4 K/uL (0.7-4.9); Lymphocytes % 20.6 % (15.3-44.8); MCV 85.7 fL (80-100); Platelets 242 thou/uL (152-406); RBC Red Blood Cell Count 3.38 M/uL (4.33-5.43)
[2023-07-16 04:04] LABS: Phosphorus 4.3 mg/dL (2.5-4.9); Potassium 3.5 mEq/L (3.5-5.1)
[2023-07-16] MEDS: carvediloL 25 MG TAB PO SCH ×2 (06:19→17:56)
[2023-07-16] MEDS: INSULIN REGULAR (HUMAN) 100 UNIT/ML SQ SCH ×4 (07:30→20:57)
--- NOTE | 2023-07-16 08:25 | P.PN ---
Date of Service: 07/16/23 Subjective AAO x3, pleasantly resting BP stable at 128/69 stable today pedal pulses marked with doppler Stress test and ECHO ordered for tomorrow ROS 10 point ROS as noted above, otherwise negative Physical Exam General: Pleasant, AAO x3 , In no apparent distress, Conversant HEENT: Atraumatic, Normocephalic, PERRLA, Rash to left episcopalian Neck: Supple, 2+ carotid pulse no bruit, JVD not distended Respiratory: Clear to auscultation bilaterally, Normal air movement, symetrical chest movement Cardiovascular: No edema, Normal pulses, Regular rate/rhythm, Normal S1 S2 Capillary refill: <2 Seconds Gastrointestinal: Normal bowel sounds, Soft and benign, distended on admission Musculoskeletal: No clubbing, No swelling, No contractures, faint bilateral pedal pulses with doppler Integumentary: Skin breakdown (chronic wound to right great toe), Rash to left episcopalian Neurological: Normal speech, Normal strength at 5/5 x4 upper extr, Other (T10 paraplegic) Urinary: Zelaya catheter Vitals Reviewed Problem list Fluid volume overload 2/2 new onset CHF CAD s/p 3 vessel CABG Afib T10 paraplegic Diabetes mellitus type 2NIDDM Chronic non healing wound to right great toe HTN Assessment and Plan Fluid volume overload 2/2 new onset CHF CAD s/p 3 vessel CABG Afib D-dimer 1379, troponin 16.5/15.4/16.2, BNP 3679 CT chest angio reports no PE Lasix 40 mg BID with zelaya strict I and O- UOP 1200, daily weight-230 lbs Continue home medications-aspirin, statin, Coreg, amiodarone Dr. Alvarez consulted- ECHO and Stress test Monday T10 paraplegic Supportive care Decubitus prevention Continue home pain medications Self catheterizes at home, zelaya catheter this admission Able to position in bed and transfer to his wheelchair faint bilateral pedal pulses with doppler HTN continue home medication-Coreg, lisinopril monitor Q4h- stable today initial BP 130/60 Morning BP 128/69 Iron deficiency Anemia Iron 47.0, TIBC 438, Transferrin 313, Transferrin % sat10.7, ferritin 14.2 Vitamin B12 >2000 Diabetes mellitus type 2NIDDM Serum glucose 122- better controlled He reports the last A1C of 6.1 Accu-Chek with sliding scale insulin Chronic non healing wound to right great toe- correction Consults wound care bandaid in place, some drainage noted DVT PPx heparin Full code LOS 2 to 3 days <GaryKathy - Last Filed: 07/16/23 18:42> Patient seen and examined. Plan of care discussed with Ms. Vega. He was complaining of constipation. He stated he will need laxatives and manual stimulation before he can move his bowels. Patient given mag citrate for constipation. He is scheduled for nuclear stress test tomorrow. <henri millard - Last Filed: 07/17/23 18:56>
[2023-07-16] MEDS: FUROSEMIDE 40 MG/4 ML VIAL IV SCH ×2 (08:59→17:54)
[2023-07-16] MEDS: BACLOFEN 10 MG TAB PO SCH ×2 (09:00→21:08)
[2023-07-16] MEDS: lisinopriL 20 MG TAB PO SCH (09:00)
[2023-07-16] MEDS: GABAPENTIN 300 MG CAP PO SCH ×4 (09:00→21:08)
[2023-07-16] MEDS ORDERED: POTASSIUM CL SA 10 MEQ TAB PO ONE (09:00)
[2023-07-16] MEDS: ASPIRIN EC 81 MG TAB PO SCH (09:00)
[2023-07-16] MEDS: AMIODARONE HCL 200 MG TAB PO SCH ×2 (09:00→21:08)
[2023-07-16 09:42] LABS: RBC Red Blood Cell Count 3.59 M/uL (4.33-5.43)
[2023-07-16 10:33] LABS: Ferritin 14.2 ng/mL (26-388); Transferrin 313 mg/dL (200-360)
[2023-07-16] MEDS: MAGNESIUM CITRATE 300 ML BOT PO SCH (12:01)
[2023-07-16] MEDS: ATORVASTATIN 20 MG TAB PO SCH (21:08)
[2023-07-16] MEDS: CYCLOBENZAPRINE 10 MG TAB PO PRN (21:08)
[2023-07-16 23:42] VITALS: O2SAT 93
[2023-07-17] MEDS: HEPARIN 5000 UNIT/ML 1 ML VIAL SQ SCH ×2 (00:27→07:49)
[2023-07-17 03:56] LABS: Absolute Lymphocytes (CBC) 1.3 K/uL (0.7-4.9); Hematocrit 29.4 % (39.6-49.0); Lymphocytes % 18.7 % (15.3-44.8); MCV 85.2 fL (80-100); MPV 8.3 fL (7.6-11.3); Platelets 263 thou/uL (152-406); RBC Red Blood Cell Count 3.45 M/uL (4.33-5.43)
[2023-07-17 04:34] LABS: Magnesium 2.1 mg/dL (1.6-2.4); Phosphorus 3.7 mg/dL (2.5-4.9); Potassium 3.8 mEq/L (3.5-5.1)
[2023-07-17] MEDS: carvediloL 25 MG TAB PO SCH (04:55)
[2023-07-17] MEDS: INSULIN REGULAR (HUMAN) 100 UNIT/ML SQ SCH ×2 (07:30→11:30)
[2023-07-17] MEDS: GABAPENTIN 300 MG CAP PO SCH ×2 (07:47→12:40)
[2023-07-17] MEDS: AMIODARONE HCL 200 MG TAB PO SCH (07:47)
[2023-07-17] MEDS: lisinopriL 20 MG TAB PO SCH (07:48)
[2023-07-17] MEDS: BACLOFEN 10 MG TAB PO SCH (07:48)
[2023-07-17] MEDS: ASPIRIN EC 81 MG TAB PO SCH (07:48)
[2023-07-17] MEDS: FUROSEMIDE 40 MG/4 ML VIAL IV SCH (07:49)
[2023-07-17] MEDS ORDERED: POTASSIUM CL SA 10 MEQ TAB PO ONE (09:00)
[2023-07-17] MEDS ORDERED: REGADENOSON 0.4 MG/5 ML SYR IV ONE (09:05)
[2023-07-17] MEDS: CYCLOBENZAPRINE 10 MG TAB PO PRN (11:13)
--- NOTE | 2023-07-17 11:27 | RAD REPORT ---
EXAM DESCRIPTION: NM - Rest Stress Cardiac Imaging - 07/17/2023 9:44 am CLINICAL HISTORY: Chest pain, SOB Chest pain. COMPARISON: Rest Stress Cardiac Imaging dated 05/12/2022 TECHNIQUE: The patient was administered approximately 1.0 mCi of Tc 99m Sestamibi prior to resting S PECT imaging of the heart. The patient was then administered approximately 31.2 mCi of Tc 99m Sestami bi following exercise or pharmacologic stress. Multiplanar SPECT images were reviewed. FINDINGS: No stress induced ischemic defect is seen to suggest stress induced ischemia. Small fixed inferior wall basal segment defect which may be related to splanchnic uptake. No other fixed defect i s seen to suggest hibernating myocardium or scarred myocardium. The end diastolic volume is 137 ml, the end systolic volume is 87 ml, and the ejection fraction is 36 %. IMPRESSION: No evidence of stress-induced myocardial ischemia. Questionable small inferior wall basal segment defect, may relate to splanchnic uptake, less likely s mall region of infarct. Reduced left ventricular ejection fraction, 36%.
[2023-07-17] MEDS: MAGNESIUM CITRATE 300 ML BOT PO SCH (12:00)
--- NOTE | 2023-07-17 13:46 | ECHO ---
HEIGHT: 5 ft 11 in WEIGHT: 230 lb 0 oz DATE OF STUDY: 07/17/[address]: Kathy Vega NP 2-DIMENSIONAL: YES M.MODE: YES DOPPLER: YES COLOR FLOW: YES TDS: PORTABLE: YES DEFINITY: BUBBLE STUDY: DIAGNOSIS: SHORTNESS OF BREATH/ NEW CONGESTIVE HEART FAILURE CARDIAC HISTORY: CATHERIZATION: SURGERY: PROSTHETIC VALVE: PACEMAKER: MEASUREMENTS (cm) DIASTOLIC (NORMALS) SYSTOLIC (NORMALS) IVSd 1.0 (0.6-1.2) LA Diam 5.3 (1.9-4.0) LVEF 40% LVIDd 3.9 (3.5-5.7) LVIDs 2.7 (2.0-3.5) %FS 32% LVPWd 1.1 (0.6-1.2) Ao Diam 3.1 (2.0-3.7) 2 DIMENSIONAL ASSESSMENT: RIGHT ATRIUM: NORMAL LEFT ATRIUM: SEVERELY DILATED RIGHT VENTRICLE: NORMAL LEFT VENTRICLE: MILDLY DEPRESSED EJECTION FRACTION TRICUSPID VALVE: MILD TRICUSPID REGURGITATION MITRAL VALVE: MILD MITRAL REGURGITATION PULMONIC VALVE: NORMAL AORTIC VALVE: MILD AORTIC INSUFFICIENCY PERICARDIAL EFFUSION: NONE AORTIC ROOT: NORMAL LEFT VENTRICULAR WALL MOTION: MILD GLOBAL HYPOKINESIS DOPPLER/COLOR FLOW: SEE BELOW COMMENTS: 1. MILDLY DEPRESSED LEFT VENTRICULAR EJECTION FRACTION 40-45% 2. MILD GLOBAL HYPOKINESIS 3. MILD TRICUSPID REGURGITATION, MITRAL REGURGITATION, AORTIC INSUFFICIENCY 4. LEFT VENTRICULAR NONCOMPACTION IS PRESENT 5. LEFT ATRIAL ENLARGEMENT TECHNOLOGIST: REYES PATHAK
--- NOTE | 2023-07-17 13:59 | TREADPHA ---
DX: DYSPNEA ON EXERTION Date of Study: 07/17/2023 Ht: 5' 11 " Wt: 230 lb 0 oz Consulting Physician: MIHIR MEDICATIONS: CORDARONE, ASPIRIN, LIPITOR, LIORESAL, COREG, FLEXERIL, LASIX, NEURONTIN, HEPARIN, NOVOLIN-R, LISINOPRIL, CITRATE OF MAGNESIA, KLOR-CON HISTORY: 67 YEAR OLD MALE WITH COMPLAINTS OF SHORTNESS OF BREATH ON EXERTION. HISTORY OF CORONARY ARTERY DISEASE WITH BYPASS, DIABETES MELLITUS, HYPERTENSION. PATIENT STATES ALLERGY TO VANVOMYCIN PHYSICIAL EXAMINATION: RESTING B.P.: 124/82 RESTING H.R.: 94 RESTING EKG: SINUS RHYTHM PROTOCOL: PHARMACOLOGIC EXERCISE TIME: 3:30 B.P. AT PEAK STRESS: 126/74 IMPRESSION: LEXISCAN INJECTED. CARDIOLITE INJECTED - SEE NUCLEAR MEDICINE REPORT. NO SUPRAVENTRICULAR TACHYCARDIA, VENTRICULAR TACHYCARDIA, PREMATURE ATRIAL COMPLEXES, PREMATURE VENTRICULAR COMPLEXES NOTED. PATIENT DENIES CHEST PAIN. NO ELECTROCARDIOGRAM CHANGES OF ISCHEMIA WITH LEXISCAN.
[2023-07-17 16:34] VITALS: BP 127/66; TEMP 97.5
--- NOTE | 2023-07-17 17:08 | EKG ---
Test Date: 2023-07-14 Test Time: 09:10:05 [place]: PH MEASUREMENT RESULTS: Intervals: Rate: 92 TN: 256 QRSD: 110 QT: 406 QTc: 502 [place]: P: TN: 256 QRS: -17 T: -3 INTERPRETIVE STATEMENTS: Sinus rhythm with 1st degree AV block Prolonged QT Abnormal ECG Compared to ECG 03/14/2023 08:06:57 First degree AV block now present Prolonged QT interval now present Sinus bradycardia no longer present Electronically Signed On 07-17-23 17:00:08 TIRE BUFFER by Ti Alvarez
--- NOTE | 2023-07-17 18:21 | P.DS ---
Admission Date: 07/16/23 Discharge Date: 07/17/23 Disposition: ROUTINE DISCHARGE Discharge Condition: GOOD Reason for Admission: fluid volume overload, new onset CHF Brief History of Present Illness: Diagnosis Fluid volume overload 2/2 new onset CHF CAD s/p 3 vessel CABG Afib T10 paraplegic Diabetes mellitus type 2NIDDM Chronic non healing wound to right great toe HTN HPI 07/14/23 Mango Grey is a 67-year-old male with past medical history of hypertension, diabetes, T10 paraplegia, CAD three-vessel bypass 13 months ago, who presents to the ED with complaints of dyspnea on exertion that has been occurring for several weeks. He was scheduled for cardiac stress test outpatient with Dr. Alvarez on Monday. He has a history of three-vessel bypass approximately 13 months ago. He reports PND, shortness of breath at rest and on exertion. On examination, He is in NAD, conversing well, and a good historian. He reports not feeling this kind of shortness of breath prior to his bypass. Chest x-ray reports "Small right pleural effusion suspected could be related to mild edema. Low lung volumes with probable basilar atelectasis." Initial vitals BP 148 / 83; Pulse 92; Resp 18; Temp 97.8; Pulse Ox 99% on R/A. Laboratory evaluations H&H 9.1/28.1, platelets 235, D-dimer 1379, sodium 142 potassium 4.3, BUN/creatinine 25/1.27, GFR 62, serum glucose 136, troponin 16.5/15.4, BNP 3679. Mango will be admitted to hospitalist service for further evaluation and treatment of new onset congestive heart failure. Hospital Course: Mango Grey is a pleasant 67 year old male with a past medical history significant for hypertension, diabetes, T10 paraplegia, CAD three-vessel bypass 13 months ago was admitted to the [facility] on 07/14/23 for Fluid volume overload. Mango presented to the ED c/o dyspnea on exertion for several weeks [employer]. he was found to be in fluid volume overload with a BNP of 3679 and d-dimer 1379, CTA chest was negative for PE with Mild to moderate CHF pattern suspected.. He had a stress test 07/17 with negative results. ECHO revealed EF of 40-45%, mild tricuspid regurgitation, mitral regurgitation, and aortic insufficiency, left atrial enlargement and left ventricular noncompaction. He has tolerated lasix and his blood pressure has remained stable. Potassium level is stable. His vitamin B12 resulted >3000, educating to stop taking the vitB12 and have the lab redrawn by his PCP in on month. He is scheduled to follow up with Dr. Alvarez to evaluate the perfusion of his BLE. We have checked his pulse by doppler succcessfully. He is hemodynamically stable, tolerating PO diet, urinating without difficulty, able to transfer himself to his wheelchair, and ready for discharge. On 07/17/23, Mango was seen on morning rounds and deemed medically stable for discharge. Mango was discharged with instructions to schedule follow-up appointments with Dr. Alvarez. Mango was provided prescriptions for Lasix, lipitor, potassium . The patient and family members were given the opportunity to ask questions and reported no further questions. Furthermore, all questions were answered to the best of my ability. A copy of this discharge summary will be sent to the above providers to facilitate continuity of care. Today, I personally spent 50 minutes with Mango, of which greater than 50% of the time was spent in patient education, counseling, and coordination of care as described above. Physical Exam General: Pleasant, AAO x3 , In no apparent distress, Conversant HEENT: Atraumatic, Normocephalic, PERRLA, Rash to left mandaeism Neck: Supple, 2+ carotid pulse no bruit, JVD not distended Respiratory: Clear to auscultation bilaterally, Normal air movement, symetrical chest movement Cardiovascular: No edema, Normal pulses, Regular rate/rhythm, Normal S1 S2 Capillary refill: <2 Seconds Gastrointestinal: Normal bowel sounds, Soft and benign, distended on admission Musculoskeletal: No clubbing, No swelling, No contractures, faint bilateral pedal pulses with doppler present Integumentary: Skin breakdown (chronic wound to right great toe), Rash to left mandaeism improved Neurological: Normal speech, Normal strength at 5/5 x4 upper extr, Other (T10 paraplegic) Urinary: Espinoza catheter Vital Signs/Physical Exam: Temp Pulse Resp BP Pulse Ox 97.5 F 87 16 127/66 94 07/17/23 16:00 07/17/23 16:00 07/17/23 16:00 07/17/23 16:00 07/17/23 16:00 Laboratory Data at Discharge: WBC 7.20 thou/uL (4.3-10.9) 07/17/23 03:07 Hgb 9.7 g/dL (13.6-17.9) L 07/17/23 03:07 Hct 29.4 % (39.6-49.0) L 07/17/23 03:07 Plt Count 263 thou/uL (152-406) 07/17/23 03:07 Sodium 139 mEq/L (136-145) 07/17/23 03:07 Potassium 3.8 mEq/L (3.5-5.1) 07/17/23 03:07 BUN 28 mg/dL (7-18) H 07/17/23 03:07 Creatinine 1.38 mg/dL (0.70-1.30) H 07/17/23 03:07 Glucose 111 mg/dL (74-106) H 07/17/23 03:07 Phosphorus 3.7 mg/dL (2.5-4.9) 07/17/23 03:07 Magnesium 2.1 mg/dL (1.6-2.4) 07/17/23 03:07 Total Bilirubin 0.6 mg/dL (0.2-1.0) 07/14/23 09:00 AST 98 U/L (15-37) H 07/14/23 09:00 ALT 139 U/L (16-61) H 07/14/23 09:00 Alkaline Phosphatase 135 U/L (45-117) H 07/14/23 09:00 Home Medications: Metoprolol Tartrate [Lopressor] 50 mg PO BID 10/21/14 Lisinopril [Zestril] 1 tab PO DAILY 12/06/16 Ascorbic Acid [Vitamin C] 1 tab PO DAILY 01/12/18 Pyridoxine HCl (Vitamin B6) [Vitamin B-6] 100 mg PO DAILY 01/12/18 Gabapentin 300 mg PO Q8H 03/30/20 Collagenase [Santyl Ointment*] 10 appl TOP DAILY #1 tube 03/31/20 Amoxicillin/Potassium Clav [Amox-Clav 875-125 mg Tablet] 1 tab PO BID 05/03/22 Ciprofloxacin HCl [Cipro] 1 tab PO BID 05/03/22 Amiodarone HCl [Cordarone*] 200 mg PO BID tab 07/17/23 Atorvastatin Calcium [Lipitor*] 20 mg PO BEDTIME 30 Days #30 tab 07/17/23 Baclofen [Lioresal*] 10 mg PO BID tab 07/17/23 Furosemide [Lasix] 20 mg PO BID 7 Days #14 tab 07/17/23 Potassium Chloride [K-Dur] 20 meq PO DAILY 7 Days #7 tab 07/17/23 lisinopriL [Prinivil*] 20 mg PO DAILY tab 07/17/23 New Medications: Potassium Chloride [K-Dur] 20 meq PO DAILY 7 Days #7 tab Furosemide [Lasix] 20 mg PO BID 7 Days #14 tab Atorvastatin Calcium [Lipitor*] 20 mg PO BEDTIME 30 Days #30 tab Physician Discharge Instructions: 1. Please call and schedule a follow-up appointment with your PCP in 3-5 days - Please follow-up with your PCP for medication refills/adjustments 2. Please call and schedule a follow-up appointment with Dr. Alvarez in one week. 3. Stop taking the Vitamin B12 and have that level checked in One month 4. Continue heart healthy diabetic diet 5. No activity restrictions New medication Lasix 20 mg p.o. twice daily for 7 days Potassium 20 mg p.o. once daily for 7 days Atorvastatin 20 mg p.o. daily Diet: diabetic Followup: Roby Lu, [Primary Care Provider] - 2-3 Days Ti Alvarez MD [ACTIVE - CAN ADMIT] - 1 Week Time spent managing pt's care (in minutes): 50
== END 2023-07-17 18:01 | disposition home or self-care (01) | DRG 291 ==
LOC: ER 08:04 → ERHOLD 10:34 → 2ND 10:52 → OBSVTOIN 07-16 16:16
PROVIDERS: ADMIT Internal Medicine; ATTEND Internal Medicine
PROC: 0T9B70Z Drainage of Bladder with Drainage Device, Via Natural or Artificial Opening (ICD-10-PCS; principal; 2023-07-16)
DX: I11.0 Hypertensive heart disease with heart failure (principal); I50.31 Acute diastolic (congestive) heart failure; G82.20 Paraplegia, unspecified; D50.9 Iron deficiency anemia, unspecified; E11.9 Type 2 diabetes mellitus without complications; I48.91 Unspecified atrial fibrillation; I25.10 Atherosclerotic heart disease of native coronary artery without angina pectoris; Z88.1 Allergy status to other antibiotic agents; Z95.1 Presence of aortocoronary bypass graft; Z79.82 Long term (current) use of aspirin; Z79.02 Long term (current) use of antithrombotics/antiplatelets; Z79.84 Long term (current) use of oral hypoglycemic drugs; Z79.899 Other long term (current) drug therapy; Z89.421 Acquired absence of other right toe(s)
CPT/HCPCS: 36415; 71045; 71275; 78452; 80048; 80076; 82607; 82728; 82947; 83010; 83540; 83615; 83735; 83880; 84100; 84466; 84484; 85025; 85044; 85379; 93005; 93017; 93306; 96374; 97163; 97530; 97542; 99285; A9500; G0378; J1644; J1815; J1940; J2785; Q9967

== ENCOUNTER 2023-08-22 10:00 | Day surgery (SDC) | payer OTHER ==
[2023-08-21 11:01] LABS: Absolute Lymphocytes (CBC) 1.3 K/uL (0.7-4.9); Hematocrit 33.7 % (39.6-49.0); Lymphocytes % 17.8 % (15.3-44.8); MCV 87.3 fL (80-100); MPV 8.1 fL (7.6-11.3); Platelets 280 thou/uL (152-406); RBC Red Blood Cell Count 3.86 M/uL (4.33-5.43)
[2023-08-21 11:14] LABS: Protime INR 1.1
[2023-08-21 11:15] LABS: Potassium 4.7 mEq/L (3.5-5.1)
--- NOTE | 2023-08-21 11:35 | RAD REPORT ---
EXAM DESCRIPTION: Kaylah Single View08/21/2023 11:29 am CLINICAL HISTORY: Preop for angiogram. Hypertension COMPARISON: July 2023 FINDINGS: The lungs appear clear of acute infiltrate. The heart is mildly to moderately enlarged Postsurgical changes involve the spine IMPRESSION: No acute abnormalities displayed
--- NOTE | 2023-08-21 13:20 | EKG ---
Test Date: 2023-08-21 Test Time: 12:06:31 Medical Data Entry Clerk: LEONORA MEASUREMENT RESULTS: Intervals: Rate: 103 WV: 228 QRSD: 104 QT: 408 QTc: 534 [place]: P: WV: 228 QRS: 2 T: 32 INTERPRETIVE STATEMENTS: Sinus tachycardia with 1st degree AV block Nonspecific ST abnormality Abnormal ECG Compared to ECG 07/14/2023 09:10:05 ST (T wave) deviation now present Sinus rhythm no longer present Prolonged QT interval no longer present Electronically Signed On 08-21-23 13:19:18 COMBATANT DIVER OFFICER by Ti Alvarez
[2023-08-22] MEDS ORDERED: NA CHLORIDE 0.9% 500 ML ONE (10:16)
[2023-08-22] MEDS ORDERED: HEPA 1000U/500MLS 2,000 UNIT/1,000 ML BAG IV ONE (11:47)
[2023-08-22] MEDS ORDERED: LIDOCAINE 1% 20 ML MDV ONE (12:03)
[2023-08-22] MEDS ORDERED: ATROPINE SULF 1 MG/10 ML SYR IV ONE (12:07)
[2023-08-22] MEDS ORDERED: FENTANYL CITR 100 MCG/2 ML ONE ×2 (12:07→12:18)
[2023-08-22] MEDS ORDERED: TICAGRELOR 90 MG TABLET PO ONE (12:07)
[2023-08-22] MEDS ORDERED: MIDAZOLAM HCL 2 MG/2 ML INJ ONE ×2 (12:07→12:19)
[2023-08-22] MEDS ORDERED: HEPARIN 10,000 UNIT/10 ML VIAL IV ONE (12:08)
[2023-08-22] MEDS ORDERED: CLOPIDOGREL 75 MG TABLET ONE (12:08)
[2023-08-22] MEDS ORDERED: ASPIRIN 325 MG TAB ONE (12:08)
[2023-08-22 18:37] VITALS: BP 126/64; O2SAT 99
== END 2023-08-22 18:20 | disposition home or self-care (01) ==
LOC: CCL 10:00
PROVIDERS: ATTEND Internal Medicine Interventional Cardiology
DX: I70.223 Atherosclerosis of native arteries of extremities with rest pain, bilateral legs (principal); I25.10 Atherosclerotic heart disease of native coronary artery without angina pectoris; I44.0 Atrioventricular block, first degree; G82.20 Paraplegia, unspecified; E11.9 Type 2 diabetes mellitus without complications; I10 Essential (primary) hypertension; I48.0 Paroxysmal atrial fibrillation; E78.2 Mixed hyperlipidemia; Z95.1 Presence of aortocoronary bypass graft; Z99.3 Dependence on wheelchair; Z79.01 Long term (current) use of anticoagulants; Z79.84 Long term (current) use of oral hypoglycemic drugs; Z79.899 Other long term (current) drug therapy; Z88.3 Allergy status to other anti-infective agents; Z82.49 Family history of ischemic heart disease and other diseases of the circulatory system
CPT/HCPCS: 93005; 85025; 80048; 36415; 85610; 85730; 71045; 36200; 75630; 76937; C1893; C1769; J2001; J2250; J3010; J7040; 99152; 99153; J0461

== ENCOUNTER 2024-07-01 11:18 | Emergency (ER) | payer OTHER ==
--- NOTE | 2024-07-01 12:04 | RAD REPORT ---
EXAM: CT brain without contrast HISTORY: right facial droop COMPARISON: None TECHNIQUE: Multiple contiguous axial images were obtained and a CT of the brain without contrast. Sag ittal and coronal reformats were performed. One or more of the following dose reduction techniques were used: Automated exposure control, adjust ment of the mA and/or kV according to patient size, and/or iterative reconstruction. FINDINGS: No evidence of hydrocephalus, intracranial hemorrhage, or extra-axial fluid collection. Mild brain atrophy with moderate periventricular and deep white matter chronic microvascular ischemi c changes present. No evidence of midline shift or areas of brain edema. The calvarium is intact. The visualized paranasal sinuses and mastoid air cells are essentially clear . Prominent vertebral basilar atherosclerotic changes. IMPRESSION: No evidence of acute intracranial abnormality. If clinical symptomology persists, MRI of brain may provide useful for further evaluation.
--- NOTE | 2024-07-01 12:21 | EDPHYS ---
Physician Documentation [facility] Name: Mango Grey Age: 68 yrs Sex: Male : 1955 Arrival Date: 07/01/2024 Time: 11:18 Bed DX4 Private MD: ED Physician Terrence Asif HPI: 07/01 11:35 This 68 yrs old Male presents to ER via Unassigned with complaints of Facial Droop. rn 11:35 The patient presents to the emergency department with weakness of the right side of the rn face, that is mild. Onset: The symptoms/episode began/occurred 3 day(s) ago. Severity of symptoms: At their worst the symptoms were mild in the emergency department the symptoms are unchanged. The patient has not experienced similar symptoms in the past. Patient reports 3 days ago noticed right facial weakness, involves the upper face and lower face. Now starting to have dry eye and irritation on the right eye. No trauma. Is diabetic with hemoglobin A1c 5.6. No other focal neurological deficits. No vision changes. No speech changes.. Historical: - Allergies: 12:15 Vancomycin; Karen syndrome; jl7 - PMHx: 12:15 Diabetes - NIDDM; Hypertension; osteomyelitis ankle; T10 paraplegic; jl7 - PSHx: 12:15 spinal cord; triple bypass; jl7 - Immunization history:: Adult Immunizations unknown. - Infectious Disease History:: Denies. - Family history:: not pertinent. - Social history:: Smoking status: Patient denies any tobacco usage or history of. - Hospitalizations: : No recent hospitalization is reported. 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 Head/Face: Normocephalic, atraumatic. Cardiovascular: Regular rate and rhythm. No pulse deficits. Respiratory: No increased work of breathing, no retractions or nasal flaring. Neuro: Awake and alert, GCS 15, oriented to person, place, time, and situation. Right upper and lower facial weakness, lower facial weakness is more prominent and upper facial weakness. Motor strength 5/5. Sensory grossly intact. Cerebellar exam normal. Vital Signs: 11:30 BP 143 / 87; Pulse 69; Resp 15; Temp 97.9; Pulse Ox 98% ; Weight 99.79 kg; Height 5 ft. jl7 11 in. ; Pain 0/10; 11:30 Body Mass Index 30.68 (99.79 kg, 180.34 cm) [facility] 11:30 Pain Scale: Adult jl7 MDM: 11:21 Medical Screening Exam initiated rn 12:20 Data reviewed: vital signs, nurses notes, radiologic studies, CT scan, and as a result, rn I will discharge patient. Counseling: I had a detailed discussion with the patient and/or guardian regarding the historical points, exam findings, and any diagnostic results supporting the discharge/admit diagnosis, radiology results, the need for outpatient follow up, to return to the emergency department if symptoms worsen or persist or if there are any questions or concerns that arise at home. Special discussion: I discussed with the patient/guardian in detail that at this point there is no indication for admission to the hospital. It is understood, however, that if the symptoms persist or worsen the patient needs to return immediately for re-evaluation. Based on the history and exam findings, there is no indication for further emergent testing or inpatient evaluation. I discussed with the patient/guardian the need to see the neurologist for further evaluation of the symptoms. 07/01 11:34 Order name: CT Head Brain wo Cont; Complete Time: 12:18 rn Administered Medications: No medications were administered Disposition Summary: 07/01/24 12:21 Discharge Ordered Notes: Location: Home rn Problem: new rn Symptoms: have improved rn Condition: Stable rn Diagnosis - Nix's palsy rn Followup: rn - With: Private Physician - When: As needed - Reason: Recheck today's complaints, Re-evaluation by your physician Discharge Instructions: - Discharge Summary Sheet rn - Nix's Palsy, Adult rn Forms: - Medication Reconciliation Form rn - Antibiotic improvement intern - Prescription Opioid Use rn - Patient Portal Instructions rn - Leadership Thank You Letter rn Prescriptions: - Acyclovir 800 mg Oral tablet - take 1 tablet ORAL route every 8 hours for 10 days; 30 tablet; Refills: 0, rn Product Selection Permitted - Medrol (Zach) 4 mg Oral Tablets, Dose Pack - take 1 tablet ORAL route as directed - follow package instructions; 1 packet; rn Refills: 0, Product Selection Permitted Signatures: Dispatcher [employer] Terrence Hoang MD MD rn Leal, Jahala, RN RN jl7
--- NOTE | 2024-07-01 12:21 | ER ---
Nurse's Notes [facility] Name: Mango Grey Age: 68 yrs Sex: Male : 1955 Arrival Date: 07/01/2024 Time: 11:18 Bed DX4 Private MD: Diagnosis: Nix's palsy Presentation: 07/01 11:30 Chief complaint: Patient states: right side facial droop since Monday. Coronavirus jl7 screen: At this time, the client does not indicate any symptoms associated with coronavirus-19. Ebola Screen: No symptoms or risks identified at this time. Initial Sepsis Screen: Does the patient meet any 2 criteria? No. Patient's initial sepsis screen is negative. Does the patient have a suspected source of infection? No. Patient's initial sepsis screen is negative. Risk Assessment: Do you want to hurt yourself or someone else? Patient reports no desire to harm self or others. Onset of symptoms was June 28, 2024. 11:30 Method Of Arrival: Wheelchair [facility] 11:30 Acuity: KATHIE 4 jl7 Triage Assessment: 11:30 General: Appears in no apparent distress. uncomfortable, Behavior is calm, cooperative, jl7 appropriate for age. Pain: Denies pain. Neuro: Level of Consciousness is awake, alert, obeys commands, Oriented to person, place, time, situation, Facial droop on right. Historical: - Allergies: 12:15 Vancomycin; Karen syndrome; jl7 - PMHx: 12:15 Diabetes - NIDDM; Hypertension; osteomyelitis ankle; T10 paraplegic; jl7 - PSHx: 12:15 spinal cord; triple bypass; jl7 - Immunization history:: Adult Immunizations unknown. - Infectious Disease History:: Denies. - Family history:: not pertinent. - Social history:: Smoking status: Patient denies any tobacco usage or history of. - Hospitalizations: : No recent hospitalization is reported. Vital Signs: 11:30 BP 143 / 87; Pulse 69; Resp 15; Temp 97.9; Pulse Ox 98% ; Weight 99.79 kg; Height 5 ft. jl7 11 in. ; Pain 0/10; 11:30 Body Mass Index 30.68 (99.79 kg, 180.34 cm) [facility] 11:30 Pain Scale: Adult jl7 ED Course: 11:20 Patient arrived in ED. ra3 11:21 Terrence Asif MD is Attending Physician. rn 11:30 Arm band placed on right wrist. jl7 11:53 CT Head Brain wo Cont In Process Unspecified. EDMS 12:15 Triage completed. jl7 12:48 Cruzito Hill, RN is Primary Nurse. jl7 12:48 No provider procedures requiring assistance completed. Patient did not have IV access jl7 during this emergency room visit. Administered Medications: No medications were administered Outcome: 12:21 Discharge ordered by . rn 12:48 Discharged to home via wheelchair, jl7 12:48 Condition: stable 12:48 Discharge instructions given to patient, Instructed on discharge instructions, follow up and referral plans. medication usage, Demonstrated understanding of instructions, follow-up care, medications, Prescriptions given X 2, 12:49 Patient left the ED. jl7 Signatures: Dispatcher [employer] EDMS Terrence Asif MD MD rn Leal, Jahala, RN RN jl7 Alva, Ruby ra3
[2024-07-01 15:27] VITALS: BP 143/87; TEMP 97.9; O2SAT 98
== END 2024-07-01 12:49 | disposition home or self-care (01) ==
LOC: ER 11:18
DX: G51.0 Bell's palsy (principal); E11.9 Type 2 diabetes mellitus without complications; I10 Essential (primary) hypertension; G82.20 Paraplegia, unspecified
CPT/HCPCS: 70450; 99283